=== PATIENT | male | born 1950 | race Caucasian/White ===

== ENCOUNTER 2018-10-06 17:47 | Emergency (ER) | payer MEDICARE, OTHER ==
[2018-10-06] MEDS ORDERED: Vancomycin 1GM/ Ns 250ML*** 1 GM/250 ML IVPB IV ONE (18:05)
[2018-10-06] MEDS ORDERED: DUONEB 0.5-3 MG/3 ml Neb IH ONE ×2 (18:06→18:13)
--- NOTE | 2018-10-06 18:13 | ERPHSYRPT ---
- History of Present Illness Source: patient Exam Limitations: no limitations Patient Subjective Stated Complaint: Pt states "I got this rash." Triage Nursing Assessment: Pt presented alert and oriented X 3, skin pwd. PT ambulates with an upright steady gait, able to speak in clear full sentences PT has red dry patches on left matthews, red spot on left upper back. No apparent respiraotry distress. Timing/Duration: day(s) (2) Quality: burning, itchy Severity: moderate Location: extremities (left lower leg, matthews) Possible Causes: no cause identified Modifying Factors: Improves With: other (denies) Associated Symptoms: rash Hx Tetanus, Diphtheria Vaccination/Date Given: Yes Hx Influenza Vaccination/Date Given: No Hx Pneumococcal Vaccination/Date Given: No Immunizations Up to Date: Yes <MIGUEL MCNAMARA - Last Filed: 10/06/18 19:09> <GEORGINA ALCANTAR - Last Filed: 10/06/18 21:06> - History of Present Illness Time Seen by Provider: 10/06/18 17:58 Physician History: Pt started c/o painful rash, redness on his left lower leg few days ago, denies any injury, no fever, chills, headaches, chest pain, or severe SOB. He has COPD , chronic cough. He denies taking antibiotics recently. (MIGUEL MCNAMARA) Allergies/Adverse Reactions: No Known Drug Allergies Allergy (Verified 10/06/18 18:02) Home Medications: Risedronate Sodium [Atelvia] 35 mg PO WEEKLY 05/03/13 [History] Zolpidem Tartrate [Ambien] 10 mg PO DAILY 05/03/13 [History] Aspirin 162 mg PO DAILY 06/24/14 [History] Codeine Phosphate/APAP #3 [Tylenol #3 Tablet] 1 tab PO Q6H PRN PRN 06/24/14 [History] Ramipril 5 mg [Altace 5 MG] 5 mg PO DAILY 06/24/14 [History] Simvastatin 10 mg PO HS 06/24/14 [History] - Review of Systems Constitutional: No Symptoms Eyes: No Symptoms Ears, Nose, & Throat: No Symptoms Respiratory: Cough (chronic) Cardiac: No Symptoms Abdominal/Gastrointestinal: No Symptoms Genitourinary Symptoms: No Symptoms Musculoskeletal: No Symptoms Skin: Pruritis, Rash Neurological: No Symptoms All Other Systems: Reviewed and Negative <MIGUEL MCNAMARA Filed: 10/06/18 19:09> - Past Medical History Pertinent Past Medical History: Yes Neurological History: No Pertinent History ENT History: No Pertinent History Cardiac History: Hypertension, Myocardial Infarction ([place]) Respiratory History: Asthma, COPD Endocrine Medical History: No Pertinent History Musculoskeletal History: No Pertinent History GI Medical History: No Pertinent History History: No Pertinent History Psycho-Social History: No Pertinent History Male Reproductive Disorders: No Pertinent History - Past Surgical History Past Surgical History: Yes Neuro Surgical History: No Pertinent History Cardiac: Cardiac Stent Respiratory: No Pertinent History Gastrointestinal: Appendectomy Genitourinary: No Pertinent History Musculoskeletal: No Pertinent History Male Surgical History: No Pertinent History Other Surgical History: 4 STENTS PLACED - Social History Smoking Status: Current every day smoker How long have you smoked: years Exposure to second hand smoke: Yes Drug Use: marijuana Patient Lives Alone: No <MIGUEL MCNAMARA Last Filed: 10/06/18 19:09> - Physical Exam General Appearance: no apparent distress Ears, Nose, Throat Exam: normal ENT inspection, moist mucous membranes Neck Exam: normal inspection, non-tender, supple, No JVD Respiratory Exam: airway intact, rhonchi (bilateral, mild), No chest tenderness , No respiratory distress Cardiovascular Exam: regular rate/rhythm, normal heart sounds, normal peripheral pulses, No murmur Gastrointestinal/Abdomen Exam: soft, normal bowel sounds, No tenderness Back Exam: normal inspection, No CVA tenderness Extremity Exam: other (left anterior lower leg: diffuse erythema, fine rash, cellulitis, no abscess, or necrotic area, ulcer, good distal pulses and sensation.), No calf tenderness, No ashvin's sign, No pedal edema Neurologic Exam: alert, oriented x 3, cooperative, normal mood/affect Skin Exam: normal color, warm, dry, rash, No petechiae, No jaundice, No cyanosis , No diaphoresis Lymphatic Exam: No adenopathy SpO2 Interpretation: normal SpO2: 95 O2 Delivery: Room Air <MIGUEL MCNAMARA Filed: 10/06/18 19:09> - Nursing Vital Signs Nursing Vital Signs: Initial Vital Signs Temperature 97.9 F 10/06/18 17:54 Pulse Rate 91 H 10/06/18 17:54 Respiratory Rate 16 10/06/18 17:54 Blood Pressure 180/108 10/06/18 17:54 O2 Sat by Pulse Oximetry 95 10/06/18 17:54 Pain Scale Pain Intensity 4 - Course Nursing assessment & vital signs reviewed: Yes <GEORGINA ALCANTAR - Last Filed: 10/06/18 21:06> Ordered Tests: Active Orders 24 hr Category Date Time Status IV Insertion STAT Care 10/06/18 18:03 Active VENOUS UNILAT/LIMITED EXTREMIT [US] Stat Exams 10/06/18 18:55 Taken BLOOD CULTURE Stat Lab 10/06/18 18:22 Received CBC W DIFF Stat Lab 10/06/18 18:22 Completed CMP Stat Lab 10/06/18 18:22 Completed D-DIMER QUANTITATION Stat Lab 10/06/18 18:22 Completed Lactic Acid Stat Lab 10/06/18 18:19 Completed PROTIME WITH INR Stat Lab 10/06/18 18:22 Completed PTT Stat Lab 10/06/18 18:22 Completed Respiratory Therapy Assessment DAILY RT 10/06/18 18:39 Active Medication Summary Discontinued Medications Generic Name Dose Route Start Last Admin Trade Name Freq PRN Reason Stop Dose Admin Albuterol/Ipratropium 3 ml 10/06/18 18:06 10/06/18 18:16 Duoneb 0.5-3 Mg/3 Ml Neb IH 10/06/18 18:07 3 ml STAT ONE Administration Albuterol/Ipratropium Confirm 10/06/18 18:13 Duoneb 0.5-3 Mg/3 Ml Neb Administered 10/06/18 18:14 Dose 3 ml IH .STK-MED ONE Vancomycin HCl 1 gm in 250 mls @ 167 mls/hr 10/06/18 18:05 10/06/18 18:31 Vancomycin 1gm/ Ns 250ml IV 10/06/18 19:34 167 mls/hr STAT ONE Administration Vancomycin HCl Confirm 10/06/18 18:24 Vancomycin 1gm/ Ns 250ml Administered 10/06/18 18:25 Dose 250 mls @ ud IV .STK-MED ONE Lab/Rad Data: Laboratory Result Diagrams 10/06/18 18:22 10/06/18 18:22 Laboratory Results 10/06/18 10/06/18 10/06/18 Range/Units 18:22 18:22 18:22 WBC 5.6 (4.0-10.5) K/mm3 RBC 4.57 (4.1-5.6) M/mm3 Hgb 15.4 (12.5-18.0) gm/dl Hct 45.7 (42-50) % MCV 100.0 (78-100) fl MCH 33.7 H (26-32) pg MCHC 33.7 (32-36) g/dl RDW 14.5 H (11.5-14.0) % Plt Count 164 (150-450) K/mm3 MPV 10.9 H (6-9.5) fl Gran % 64.9 (36.0-66.0) % Eos # (Auto) 0.08 (0-0.5) Absolute Lymphs (auto) 1.15 (1.0-4.6) Absolute Monos (auto) 0.70 (0.0-1.3) Lymphocytes % 20.7 L (24.0-44.0) % Monocytes % 12.6 H (0.0-12.0) % Eosinophils % 1.4 (0.00-5.0) % Basophils % 0.4 (0.0-0.4) % Absolute Granulocytes 3.60 (1.4-6.9) Basophils # 0.02 (0-0.4) PT 11.0 (8.83-12.87) SECONDS INR 0.97 (0.8-3.0) APTT 30.7 (24.1-36.1) SECONDS D-Dimer 890 H* (215-500) ng/mL Sodium 142 (137-145) mmol/L Potassium 4.1 (3.5-5.1) mmol/L Chloride 109 H (98-107) mmol/L Carbon Dioxide 26 (22-30) mmol/L Anion Gap 10.4 (5-15) MEQ/L BUN 17 (9-20) mg/dL Creatinine 0.84 (0.66-1.25) mg/dL Estimated GFR > 60.0 ML/MIN Glucose 109 H (74-106) mg/dL Lactic Acid (0.4-2.0) Calcium 9.7 (8.4-10.2) mg/dL Total Bilirubin 0.50 (0.2-1.3) mg/dL AST 25 (17-59) U/L ALT 18 (0-50) U/L Alkaline Phosphatase 69 (38-126) U/L Serum Total Protein 7.0 (6.3-8.2) g/dL Albumin 4.1 (3.5-5.0) g/dL 10/06/18 Range/Units 18:19 WBC (4.0-10.5) K/mm3 RBC (4.1-5.6) M/mm3 Hgb (12.5-18.0) gm/dl Hct (42-50) % MCV (78-100) fl MCH (26-32) pg MCHC (32-36) g/dl RDW (11.5-14.0) % Plt Count (150-450) K/mm3 MPV (6-9.5) fl Gran % (36.0-66.0) % Eos # (Auto) (0-0.5) Absolute Lymphs (auto) (1.0-4.6) Absolute Monos (auto) (0.0-1.3) Lymphocytes % (24.0-44.0) % Monocytes % (0.0-12.0) % Eosinophils % (0.00-5.0) % Basophils % (0.0-0.4) % Absolute Granulocytes (1.4-6.9) Basophils # (0-0.4) PT (8.83-12.87) SECONDS INR (0.8-3.0) APTT (24.1-36.1) SECONDS D-Dimer (215-500) ng/mL Sodium (137-145) mmol/L Potassium (3.5-5.1) mmol/L Chloride (98-107) mmol/L Carbon Dioxide (22-30) mmol/L Anion Gap (5-15) MEQ/L BUN (9-20) mg/dL Creatinine (0.66-1.25) mg/dL Estimated GFR ML/MIN Glucose (74-106) mg/dL Lactic Acid 0.9 (0.4-2.0) Calcium (8.4-10.2) mg/dL Total Bilirubin (0.2-1.3) mg/dL AST (17-59) U/L ALT (0-50) U/L Alkaline Phosphatase (38-126) U/L Serum Total Protein (6.3-8.2) g/dL Albumin (3.5-5.0) g/dL <MIGUEL MNCAMARA - Last Filed: 10/06/18 19:09> - Progress Progress: improved <GEORGINA ALCANTAR - Last Filed: 10/06/18 21:06> - Progress Progress Note: 10/06/18 21:00 68-year-old white male arrives with complaint of painful rash on his left lower extremity symptoms for 3-4 days he denies nausea vomiting fevers Past medical history includes COPD, chronic cough, high blood pressure, myocardial infarction, asthma past surgical history includes for stents and an appendectomy Patient initially seen by Dr. Mcnamara Patient has been given vancomycin 1 g IV Patient does not appear to be in acute distress Patient's vitals initially blood pressure 180/108 now 145/89 patient is afebrile Physical examination well-developed large white male he is alert oriented x3. Head is atraumatic normocephalic Eyes PERRLA EOMI fundi unremarkable. Ears TMs are intact bilaterally. Nose is clear. Throat is clear. Neck is supple. Lungs are clear. Heart regular rate and rhythm without murmur. Abdomen soft nontender nondistended positive bowel sounds. Extremities erythema to the right lower leg I do not see any weeping. Pulses equal and symmetrical two over four upper and lower. Neuro patient alert oriented x3 cranial nerves II through XII are intact DTRs symmetrical two over four [place] Coma Scale is 15. Patient's labs white blood cell 5.6 hemoglobin 15.4 hematocrit 45.7 platelets 164 patient's chemistry sodium 142 potassium 4.1 chloride 109 bicarbonate 26 BUN 17 creatinine 0.89 glucose 109 patient's lactate is 0.9 d-dimer 890 Venous Doppler of left lower leg no DVT Impression cellulitis right lower leg. Plan patient appears to be quite stable he is not in any distress he is afebrile he has received 1 g of vancomycin. Will plan to discharge patient he will need to followup with his doctor, Zahra Montana is to call tomorrow and arrange followup appointment. He can return at any time for any problems . (GEORGINA ALCANTAR) <MIGUEL MCNAMARA - Last Filed: 10/06/18 19:09> - Departure Departure Disposition: Home Critical Care Time: No <GEORGINA ALCANTAR - Last Filed: 10/06/18 21:06> - Departure Clinical Impression: Cellulitis of left leg Condition: Fair Referrals: ROSA MONTANA [Primary Care Provider] - Additional Instructions: Return home. Bactrim DS one orally twice a day for 10 days. Followup with your family doctor call tomorrow to arrange followup appointment. Return for acute distress severe symptoms or for any problems. Prescriptions: Smz/Tmp Ds Tablet [Bactrim Ds Tablet] 1 tab PO BID #20 tablet
[2018-10-06] MEDS ORDERED: Vancomycin 1GM/ Ns 250ML*** 250 ML IV ONE (18:24)
[2018-10-06 18:29] LABS: BASOPHIL % 0.4 % (0.0-0.4); Basophil (Absolute #) 0.02 (0-0.4); Eosinophil % 1.4 % (0.00-5.0); Eosinophil (Absolute #) 0.08 (0-0.5); Granulocytes % 64.9 % (36.0-66.0); Hematocrit 45.7 % (42-50); Hemoglobin 15.4 gm/dl (12.5-18.0); Lymphocyte (Absolute #) 1.15 (1.0-4.6); Lymphocytes % 20.7 % (24.0-44.0); Mean Corpuscular Hemoglobin 33.7 pg (26-32); Mean Corpuscular Hgb Concent. 33.7 g/dl (32-36); Mean Platelet Volume 10.9 fl (6-9.5); Monocytes % 12.6 % (0.0-12.0); Platelet Count 164 K/mm3 (150-450); Red Blood Count 4.57 M/mm3 (4.1-5.6); Red Cell Distribution Width 14.5 % (11.5-14.0); White Blood Count 5.6 K/mm3 (4.0-10.5)
[2018-10-06 18:38] LABS: INR 0.97 (0.8-3.0)
[2018-10-06 18:40] LABS: PTT 30.7 SECONDS (24.1-36.1)
[2018-10-06 18:41] LABS: ALBUMIN 4.1 g/dL (3.5-5.0); ALKALINE PHOSPHATASE 69 U/L (38-126); ANION GAP 10.4 MEQ/L (5-15); BLOOD UREA NITROGEN 17 mg/dL (9-20); CHLORIDE 109 mmol/L (98-107); Calcium 9.7 mg/dL (8.4-10.2); Carbon Dioxide 26 mmol/L (22-30); Creatinine 1 0.84 mg/dL (0.66-1.25); Glucose 109 mg/dL (74-106); Potassium 4.1 mmol/L (3.5-5.1); SGOT/AST 25 U/L (17-59); SGPT/ALT 18 U/L (0-50); SODIUM 142 mmol/L (137-145)
[2018-10-06 21:27] VITALS: BP 148/86; PULSE 90; O2SAT 97
--- NOTE | 2018-10-07 08:33 | XRAY ---
Indication: Pain, swelling, and rash. Two-dimensional sonogram and color Doppler imaging of the major venous vessels of the left leg was performed. Comparison: None No thrombus seen in the examined deep venous vessels of the left leg including greater saphenous vein. Veins demonstrate normal compressibility. Venous waveforms are normal with and without augmentation. Impression: Left leg negative for DVT. Comment: Preliminary report was given.
== END 2018-10-06 21:28 | disposition home or self-care (01) ==
LOC: ED 17:47
DX: L03.116 Cellulitis of left lower limb (principal); M79.662 Pain in left lower leg; I10 Essential (primary) hypertension; J44.9 Chronic obstructive pulmonary disease, unspecified; J45.909 Unspecified asthma, uncomplicated; Z79.899 Other long term (current) drug therapy; I25.2 Old myocardial infarction
CPT/HCPCS: 36000; 36415; 80053; 83605; 85025; 85379; 85610; 85730; 87040; 93971; 94640; 96365; 99284; J3370; A9270-GY

== ENCOUNTER 2019-08-14 19:19 | Emergency (ER) | payer MEDICARE, OTHER ==
[2019-08-14] MEDS ORDERED: Sodium Chloride 0.9% 1000 ML 1,000 ML IV STA (19:35)
[2019-08-14] MEDS ORDERED: Zofran 4 MG/2 ML VIAL IV ONE (19:35)
[2019-08-14] MEDS ORDERED: TYLENOL 325 MG PO ONE (19:35)
[2019-08-14] MEDS ORDERED: Sodium Chloride 0.9% 1000 ML 1,000 ML ONE (19:46)
[2019-08-14] MEDS ORDERED: TYLENOL 325 MG ONE (19:46)
[2019-08-14] MEDS ORDERED: Zofran 4 MG/2 ML VIAL ONE (19:46)
--- NOTE | 2019-08-14 20:07 | ERPHSYRPT ---
- History of Present Illness Time Seen by Provider: 08/14/19 19:23 Source: patient Exam Limitations: no limitations Patient Subjective Stated Complaint: "My back started hurting last night while i was sitting in my chair." Triage Nursing Assessment: pt presented alert et oriented x3 answering questions appropriately. Pt reported acute onset left flank pain that started the night before. Pt described the pain as sharp/stabbing. Pt denied vomiting/diarrhea. Pt denied dysuria. Pupils 3mm reactive. oral mucosa pink/moist. neck supple non-tender. Symmetrical chest expansion. Lungs clear with adequate airflow. Radial pulses equal/bilateral. Abdomen soft non-tender without palpable organomegaly. Bowel sounds present in all quadrants. Pain reproducable with palpation. No noted dependent edema. Physician History: Patient is here with left flank pain. No falls or trauma. No fever, chills, nausea, vomiting. Patient states the pain started last night when he was in his chair. He has no palpable abdominal mass, history of aortic aneurysm, aortic abdominal dissection. He has tried some pain medication at home without relief. No falls or other trauma. Location: left flank Quality: sharp Radiation: none Severity: moderate Duration: last night Timing: gradual Modifying factors/associated signs and symptoms: home OTC medication Timing/Duration: day(s) (yesterday) Severity: moderate Modifying Factors: Improves With: medication, movement, rest Associated Symptoms: nausea, No chest pain, No loss of appetite Allergies/Adverse Reactions: No Known Drug Allergies Allergy (Verified 08/14/19 19:28) Home Medications: Zolpidem Tartrate [Ambien] 10 mg PO DAILY 05/03/13 [History] Aspirin 162 mg PO DAILY 06/24/14 [History] Ramipril 5 mg [Altace 5 MG] 5 mg PO DAILY 06/24/14 [History] Simvastatin 10 mg PO HS 06/24/14 [History] Metformin HCl 500 mg [Glucophage 500 MG] 1 tab PO BID 08/14/19 [History] Nebivolol HCl 5 MG [Bystolic 5 MG] 1 tab PO DAILY 08/14/19 [History] Hx Tetanus, Diphtheria Vaccination/Date Given: No Hx Influenza Vaccination/Date Given: Yes Hx Pneumococcal Vaccination/Date Given: No Travel Risk - International Travel Have you traveled outside of the country in past 3 weeks: No - Coronavirus Screening Are you exhibiting any of the following symptoms?: No Close contact with a COVID-19 positive Pt in past 14-21 Days: No - Review of Systems Constitutional: No Fever, No Chills Eyes: No Symptoms Ears, Nose, & Throat: No Symptoms Respiratory: No Cough, No Dyspnea Cardiac: No Chest Pain, No Edema, No Syncope Abdominal/Gastrointestinal: Other (left flank pain), No Abdominal Pain, No Nausea, No Vomiting, No Diarrhea Genitourinary Symptoms: No Dysuria Musculoskeletal: No Back Pain, No Neck Pain Skin: No Rash Neurological: No Dizziness, No Focal Weakness, No Sensory Changes Psychological: No Symptoms Endocrine: No Symptoms All Other Systems: Reviewed and Negative - Past Medical History Pertinent Past Medical History: Yes Neurological History: No Pertinent History ENT History: No Pertinent History Cardiac History: Hypertension, Myocardial Infarction ([place]) Respiratory History: Asthma, COPD Endocrine Medical History: No Pertinent History Musculoskeletal History: No Pertinent History GI Medical History: No Pertinent History History: No Pertinent History Psycho-Social History: No Pertinent History Male Reproductive Disorders: No Pertinent History - Past Surgical History Past Surgical History: Yes Neuro Surgical History: No Pertinent History Cardiac: Cardiac Stent Respiratory: No Pertinent History Gastrointestinal: Appendectomy Genitourinary: No Pertinent History Musculoskeletal: No Pertinent History Male Surgical History: No Pertinent History Other Surgical History: 4 STENTS PLACED - Social History Smoking Status: Current every day smoker How long have you smoked: years Exposure to second hand smoke: Yes Drug Use: marijuana Patient Lives Alone: No - Nursing Vital Signs Nursing Vital Signs: Initial Vital Signs Temperature 97.9 F 08/14/19 19:19 Pulse Rate 89 08/14/19 19:19 Respiratory Rate 20 08/14/19 19:19 Blood Pressure 127/93 08/14/19 19:19 O2 Sat by Pulse Oximetry 97 08/14/19 19:19 Pain Scale Pain Intensity 4 - Physical Exam General Appearance: no apparent distress, alert Eye Exam: PERRL/EOMI, eyes nml inspection Ears, Nose, Throat Exam: normal ENT inspection, TMs normal, pharynx normal, moist mucous membranes Neck Exam: normal inspection, non-tender, supple, full range of motion Respiratory Exam: normal breath sounds, lungs clear, No respiratory distress Cardiovascular Exam: regular rate/rhythm, normal heart sounds, normal peripheral pulses Gastrointestinal/Abdomen Exam: soft, normal bowel sounds, No tenderness, No mass Back Exam: normal inspection, normal range of motion, No CVA tenderness, No vertebral tenderness Extremity Exam: normal inspection, normal range of motion, pelvis stable Neurologic Exam: alert, oriented x 3, cooperative, normal mood/affect, nml cerebellar function, nml station & gait, sensation nml, No motor deficits Skin Exam: normal color, warm, dry, No rash Lymphatic Exam: No adenopathy SpO2 Interpretation: normal SpO2: 97 Comments: 08/14/19 20:06 left flank tenderness palpation. No obvious deformity, sensation intact, 2+ capillary refill, 2 point tactile discrimination intact. 5 out of 5 strength. Full range of motion without pain. Compartments are soft, nontender. Overlying skin shows no tenting, bruising, ecchymosis. Ordered Tests: Active Orders 24 hr Category Date Time Status EKG-ER Only STAT Care 08/14/19 19:35 Active IV Insertion STAT Care 08/14/19 19:35 Active ABDOMEN AND PELVIS W/0 CONTRAS [CT] Stat Exams 08/14/19 19:46 Taken CBC W DIFF Stat Lab 08/14/19 20:05 Completed CMP Stat Lab 08/14/19 20:05 Completed LIPASE Stat Lab 08/14/19 20:05 Completed TROPONIN Q3H Lab 08/14/19 20:05 Completed TROPONIN Q3H Lab 08/14/19 22:45 Ordered TROPONIN Q3H Lab 08/15/19 01:45 Ordered TROPONIN Q3H Lab 08/15/19 04:45 Ordered TROPONIN Q3H Lab 08/15/19 07:45 Ordered UA W/RFX UR CULTURE Stat Lab 08/14/19 21:15 Completed Medication Summary Discontinued Medications Generic Name Dose Route Start Last Admin Trade Name Freq PRN Reason Stop Dose Admin Acetaminophen 975 mg 08/14/19 19:35 08/14/19 20:09 Tylenol 325 Mg PO 08/14/19 19:36 975 mg STAT ONE Administration Acetaminophen Confirm 08/14/19 19:46 Tylenol 325 Mg Administered 08/14/19 19:47 Dose 975 mg .ROUTE .STK-MED ONE Sodium Chloride 1,000 mls @ 999 mls/hr 08/14/19 19:35 08/14/19 20:10 Sodium Chloride 0.9% 1000 Ml IV 08/14/19 20:35 999 mls/hr .Q1H1M STA Administration Sodium Chloride Confirm 08/14/19 19:46 Sodium Chloride 0.9% 1000 Ml Administered 08/14/19 19:47 Dose 1,000 mls @ ud .ROUTE .STK-MED ONE Ondansetron HCl 4 mg 08/14/19 19:35 08/14/19 20:09 Zofran 4 Mg/2 Ml Vial IV 08/14/19 19:36 4 mg STAT ONE Administration Ondansetron HCl Confirm 08/14/19 19:46 Zofran 4 Mg/2 Ml Vial Administered 08/14/19 19:47 Dose 4 mg .ROUTE .STK-MED ONE Lab/Rad Data: Laboratory Result Diagrams 08/14/19 20:05 08/14/19 20:05 Laboratory Results 08/14/19 08/14/19 08/14/19 Range/Units 21:15 20:05 20:05 WBC (4.0-10.5) K/mm3 RBC (4.1-5.6) M/mm3 Hgb (12.5-18.0) gm/dl Hct (42-50) % MCV (78-100) fl MCH (26-32) pg MCHC (32-36) g/dl RDW (11.5-14.0) % Plt Count (150-450) K/mm3 MPV (7.5-11.0) fl Gran % (36.0-66.0) % Eos # (Auto) (0-0.5) Absolute Lymphs (auto) (1.0-4.6) Absolute Monos (auto) (0.0-1.3) Lymphocytes % (24.0-44.0) % Monocytes % (0.0-12.0) % Eosinophils % (0.00-5.0) % Basophils % (0.0-0.4) % Absolute Granulocytes (1.4-6.9) Basophils # (0-0.4) Sodium 137 (137-145) mmol/L Potassium 4.1 (3.5-5.1) mmol/L Chloride 104 (98-107) mmol/L Carbon Dioxide 27 (22-30) mmol/L Anion Gap 10.4 (5-15) MEQ/L BUN 14 (9-20) mg/dL Creatinine 0.85 (0.66-1.25) mg/dL Estimated GFR > 60.0 ML/MIN Glucose 121 H (74-106) mg/dL Calcium 9.3 (8.4-10.2) mg/dL Total Bilirubin 0.40 (0.2-1.3) mg/dL AST 24 (17-59) U/L ALT 16 (0-50) U/L Alkaline Phosphatase 71 (38-126) U/L Troponin I < 0.012 (0.000-0.034) ng/mL Serum Total Protein 6.6 (6.3-8.2) g/dL Albumin 3.7 (3.5-5.0) g/dL Lipase 157 (23-300) U/L Urine Color YELLOW (YELLOW) Urine Appearance CLEAR (CLEAR) Urine pH 6.0 (5-6) Ur Specific [place] 1.005 (1.005-1.025) Urine Protein NEGATIVE (Negative) Urine Ketones NEGATIVE (NEGATIVE) Urine Blood NEGATIVE (0-5) [place] Urine Nitrite NEGATIVE (NEGATIVE) Urine Bilirubin NEGATIVE (NEGATIVE) Urine Urobilinogen NEGATIVE (0-1) mg/dL Ur Leukocyte Esterase NEGATIVE (NEGATIVE) Urine WBC (Auto) 0-2 (0-5) /HPF Urine RBC (Auto) NONE (0-2) /HPF U Epithel Cells (Auto) NONE (FEW) /HPF Urine Bacteria (Auto) NONE (NEGATIVE) /HPF Urine Culture Reflexed NO (NO) Urine Glucose NEGATIVE (NEGATIVE) mg/dL 08/14/19 Range/Units 20:05 WBC 4.7 (4.0-10.5) K/mm3 RBC 4.47 (4.1-5.6) M/mm3 Hgb 14.8 (12.5-18.0) gm/dl Hct 44.7 (42-50) % MCV 100.0 (78-100) fl MCH 33.1 H (26-32) pg MCHC 33.1 (32-36) g/dl RDW 14.6 H (11.5-14.0) % Plt Count 167 (150-450) K/mm3 MPV 10.7 (7.5-11.0) fl Gran % 60.6 (36.0-66.0) % Eos # (Auto) 0.09 (0-0.5) Absolute Lymphs (auto) 1.18 (1.0-4.6) Absolute Monos (auto) 0.56 (0.0-1.3) Lymphocytes % 25.2 (24.0-44.0) % Monocytes % 11.9 (0.0-12.0) % Eosinophils % 1.9 (0.00-5.0) % Basophils % 0.4 (0.0-0.4) % Absolute Granulocytes 2.84 (1.4-6.9) Basophils # 0.02 (0-0.4) Sodium (137-145) mmol/L Potassium (3.5-5.1) mmol/L Chloride (98-107) mmol/L Carbon Dioxide (22-30) mmol/L Anion Gap (5-15) MEQ/L BUN (9-20) mg/dL Creatinine (0.66-1.25) mg/dL Estimated GFR ML/MIN Glucose (74-106) mg/dL Calcium (8.4-10.2) mg/dL Total Bilirubin (0.2-1.3) mg/dL AST (17-59) U/L ALT (0-50) U/L Alkaline Phosphatase (38-126) U/L Troponin I (0.000-0.034) ng/mL Serum Total Protein (6.3-8.2) g/dL Albumin (3.5-5.0) g/dL Lipase (23-300) U/L Urine Color (YELLOW) Urine Appearance (CLEAR) Urine pH (5-6) Ur Specific [place] (1.005-1.025) Urine Protein (Negative) Urine Ketones (NEGATIVE) Urine Blood (0-5) Paco/ul Urine Nitrite (NEGATIVE) Urine Bilirubin (NEGATIVE) Urine Urobilinogen (0-1) mg/dL Ur Leukocyte Esterase (NEGATIVE) Urine WBC (Auto) (0-5) /HPF Urine RBC (Auto) (0-2) /HPF U Epithel Cells (Auto) (FEW) /HPF Urine Bacteria (Auto) (NEGATIVE) /HPF Urine Culture Reflexed (NO) Urine Glucose (NEGATIVE) mg/dL - Progress Progress: improved Progress Note: 08/14/19 20:07 differential diagnosis includes kidney stone, compression fracture, infection, UTI, triple AAA - basic labs including: CBC, lipase, CMP, UA - insert IV for fluids, pain meds, nausea control - consider imaging: CT ab/pelvis 08/14/19 21:35 CT scan shows no obvious cause for patient's pain. No kidney stone, no obvious dissection, no obvious pancreatitis. Patient feels improved with medication here. No UTI on UA. Patient will close follow-up with PCP. Return here for any new or changing symptoms. Will discharge patient home. States he understands his reasons to follow-up and follow-up instructions with PCP. Counseled pt/family regarding: drug and/or alcohol abuse, lab results, diagnosis, need for follow-up, rad results, smoking cessation - Departure Departure Disposition: Home Clinical Impression: Left flank pain Condition: Stable Critical Care Time: No Referrals: ROSA GE [Primary Care Provider] - Instructions: Flank Pain
[2019-08-14 20:13] LABS: Absolute Neutrophil Ct (ANC) 2.84 (1.4-6.9); BASOPHIL % 0.4 % (0.0-0.4); Basophil (Absolute #) 0.02 (0-0.4); Eosinophil % 1.9 % (0.00-5.0); Eosinophil (Absolute #) 0.09 (0-0.5); Hematocrit 44.7 % (42-50); Hemoglobin 14.8 gm/dl (12.5-18.0); Lymphocyte (Absolute #) 1.18 (1.0-4.6); Lymphocytes % 25.2 % (24.0-44.0); Mean Corpuscular Hemoglobin 33.1 pg (26-32); Mean Corpuscular Hgb Concent. 33.1 g/dl (32-36); Mean Platelet Volume 10.7 fl (7.5-11.0); Monocyte (Absolute #) 0.56 (0.0-1.3); Monocytes % 11.9 % (0.0-12.0); Neutrophil % 60.6 % (36.0-66.0); Platelet Count 167 K/mm3 (150-450); Red Blood Count 4.47 M/mm3 (4.1-5.6); Red Cell Distribution Width 14.6 % (11.5-14.0); White Blood Count 4.7 K/mm3 (4.0-10.5)
[2019-08-14 20:27] LABS: ALBUMIN 3.7 g/dL (3.5-5.0); ALKALINE PHOSPHATASE 71 U/L (38-126); ANION GAP 10.4 MEQ/L (5-15); BLOOD UREA NITROGEN 14 mg/dL (9-20); CHLORIDE 104 mmol/L (98-107); Calcium 9.3 mg/dL (8.4-10.2); Carbon Dioxide 27 mmol/L (22-30); Creatinine 1 0.85 mg/dL (0.66-1.25); Glucose 121 mg/dL (74-106); LIPASE 157 U/L (23-300); Potassium 4.1 mmol/L (3.5-5.1); SGOT/AST 24 U/L (17-59); SGPT/ALT 16 U/L (0-50); SODIUM 137 mmol/L (137-145); Total Protein 6.6 g/dL (6.3-8.2)
[2019-08-14 21:29] LABS: Appearance CLEAR (CLEAR); Bilirubin NEGATIVE (NEGATIVE); Blood NEGATIVE Ery/ul (0-5); Glucose NEGATIVE (NEGATIVE); Ketones NEGATIVE (NEGATIVE); Leukocyte Esterase NEGATIVE (NEGATIVE); Nitrite NEGATIVE (NEGATIVE); Protein,Urine Dip NEGATIVE (Negative); Specific Gravity 1.005 (1.005-1.025); Urobilinogen NEGATIVE mg/dL (0-1); WBC 0-2 /HPF (0-5)
[2019-08-14 21:51] VITALS: BP 149/84; PULSE 82; O2SAT 98
--- NOTE | 2019-08-15 07:45 | XRAY ---
Indication: Left flank pain. Multiple contiguous axial images obtained through the abdomen and pelvis without contrast using renal stone protocol. Comparison: January 27, 2006. Lung bases and upper abdomen degraded by respiration artifact Lung bases again hyperinflated with bibasilar subsegmental atelectasis/scarring. No infiltrate or effusion. Heart is not enlarged. No renal calculus or evidence for obstructive uropathy in either system. A few new bilateral renal cysts, largest right mid kidney measuring 2.2 cm. Left upper kidney demonstrates new 7 mm round density, not simple cyst. No hydronephrosis or hydroureter. Stomach is distended with food/fluid. Noncontrasted stomach and bowel loops appear nonobstructed. Appendectomy reported. New sigmoid diverticulosis without diverticulitis. No free fluid/air. Left lobe of the liver demonstrates new 2.4 cm cyst. Stable subcentimeter inferior right hepatic cyst and small right adrenal adenoma. Remaining liver, gallbladder, pancreas, spleen, adrenal glands, kidneys, ureters, and bladder appear unremarkable for noncontrast exam. Progressive worsening heavy scattered vascular calcifications. No AAA. Osseous structures intact again with mild degenerative changes throughout the spine and bilateral L5 spondylolysis with minimal spondylolisthesis. No ventral or inguinal hernias. Impression: 1. Negative renal calculus or evidence for obstructive uropathy. 2. New bilateral renal cysts. Left upper pole cyst appears dense/complex. CT or MRI with contrast exam may yield further information. 3. New left lobe hepatic cysts with stable tiny right lobe cyst. 4. New sigmoid diverticulosis without diverticulitis. 5. Stable right adrenal adenoma and chronic bony findings. Comment: Preliminary interpretation was made by [facility]. No critical discrepancy.
== END 2019-08-14 21:53 | disposition home or self-care (01) ==
LOC: ED 19:19
DX: R10.9 Unspecified abdominal pain (principal); Z79.899 Other long term (current) drug therapy; J44.9 Chronic obstructive pulmonary disease, unspecified; J45.909 Unspecified asthma, uncomplicated; I25.2 Old myocardial infarction; Z72.0 Tobacco use
CPT/HCPCS: 36000; 36415; 74176; 80053; 81001; 83690; 84484; 85025; 93005; 96360; 96374; 99284; J2405; A9270-GY

== ENCOUNTER 2021-03-27 18:22 | Observation (INO) | payer MEDICARE, OTHER ==
[2021-03-27 19:18] LABS: Hematocrit 44.6 % (42-50); Hemoglobin 14.8 gm/dl (12.5-18.0); Mean Cell Volume 100.9 fl (78-100); Mean Corpuscular Hemoglobin 33.5 pg (26-32); Mean Corpuscular Hgb Concent. 33.2 g/dl (32-36); Mean Platelet Volume 11.6 fl (7.5-11.0); Platelet Count 117 K/mm3 (150-450); Red Blood Count 4.42 M/mm3 (4.1-5.6); Red Cell Distribution Width 13.2 % (11.5-14.0); White Blood Count 4.2 K/mm3 (4.0-10.5)
[2021-03-27 19:23] LABS: INR 0.99 (0.8-3.0); PROTIME 11.7 SECONDS (9.4-12.5)
[2021-03-27 19:25] LABS: PTT 32.1 SECONDS (25.1-36.5)
--- NOTE | 2021-03-27 19:26 | ERPHSYRPT ---
- History of Present Illness Source: patient, EMS Exam Limitations: no limitations Patient Subjective Stated Complaint: Syncope Triage Nursing Assessment: Patient brought into ED via EMS and transferred to bed with assist of 3. Patient A+O x3. Patient's skin pink, warm and dry. Patient complains of a near sycopal episode while eating dinner. Patient states he started sweating and was nauseated and began to feel dizzy. Patient states he has been coughing, SOB, headache, bodyaches and fatigue for the past couple of days. Lungs clear a/p pedro. Physician History: 70 yo wm brought into ER by EMS for near syncopal episode before sitting down to eat. Pt stated that he had some nausea/vomiting/diaphoresis before the near syncopal episode. He denies chest pain/dyspnea. Pt is vaccinated w Moderna x2 but has had a cough/coryza for the last couple of weeks. Pt smokes 1.5 ppd and has a h/o "black lung". Fever/DELVALLE/myalgias/diarrhea are denied. Witnessed: by family Prior Episodes: single episode today Timing/Duration: today Precipitating Factors: diaphoresis, nausea Context: sitting (Getting ready to eat) Charcter of event(s): felt faint Allergies/Adverse Reactions: No Known Drug Allergies Allergy (Verified 03/27/21 18:30) Home Medications: Zolpidem Tartrate [Ambien] 10 mg PO DAILY 05/03/13 [History] Aspirin 162 mg PO DAILY 06/24/14 [History] Ramipril 5 mg [Altace 5 MG] 5 mg PO DAILY 06/24/14 [History] Simvastatin 10 mg PO HS 06/24/14 [History] Metformin HCl 500 mg [Glucophage 500 MG] 1 tab PO BID 08/14/19 [History] Nebivolol HCl 5 MG [Bystolic 5 MG] 1 tab PO DAILY 08/14/19 [History] Hx Tetanus, Diphtheria Vaccination/Date Given: No Hx Influenza Vaccination/Date Given: No Hx Pneumococcal Vaccination/Date Given: No Immunizations Up to Date: Yes Travel Risk - International Travel Have you traveled outside of the country in past 3 weeks: No - Coronavirus Screening Are you exhibiting any of the following symptoms?: No Symptoms: Cough: New Onset, Shortness of Breath, Vomiting/Diarrhea, Headaches/Body Aches/Fatigue Close contact with a COVID-19 positive Pt in past 14-21 Days: No - Vaccine Status Have you recieved a Covid-19 vaccination: Yes [employer]: Moderna - Vaccination Dates Date of 2cond Vaccination (if applicable): na - Past Medical History Pertinent Past Medical History: Yes Neurological History: No Pertinent History ENT History: No Pertinent History Cardiac History: Hypertension, Myocardial Infarction ([place]) Respiratory History: Asthma, COPD Endocrine Medical History: No Pertinent History Musculoskeletal History: No Pertinent History GI Medical History: No Pertinent History History: No Pertinent History Psycho-Social History: No Pertinent History Male Reproductive Disorders: No Pertinent History - Past Surgical History Past Surgical History: Yes Neuro Surgical History: No Pertinent History Cardiac: Cardiac Stent Respiratory: No Pertinent History Gastrointestinal: Appendectomy Genitourinary: No Pertinent History Musculoskeletal: No Pertinent History Male Surgical History: No Pertinent History Other Surgical History: 4 STENTS PLACED - Social History Smoking Status: Current every day smoker How long have you smoked: years Exposure to second hand smoke: Yes Drug Use: none Patient Lives Alone: No Significant Family History: no pertinent family hx - Review of Systems Constitutional: No Symptoms, Fatigue, Lethargy, Weakness Eyes: No Symptoms Ears, Nose, & Throat: No Symptoms, Nose Congestion, Nose Discharge Respiratory: No Symptoms, Cough Cardiac: No Symptoms Abdominal/Gastrointestinal: No Symptoms, Nausea, Vomiting, Diarrhea Genitourinary Symptoms: No Symptoms Musculoskeletal: No Symptoms Skin: No Symptoms Neurological: No Symptoms Psychological: No Symptoms Endocrine: No Symptoms Hematologic/Lymphatic: No Symptoms Immunological/Allergic: No Symptoms Physical Exam - Nursing Vital Signs Nursing Vital Signs: Initial Vital Signs Pulse Rate 62 03/27/21 18:30 Respiratory Rate 18 03/27/21 18:30 Blood Pressure 101/76 03/27/21 18:30 O2 Sat by Pulse Oximetry 100 03/27/21 18:30 Pain Scale Pain Intensity 0 WNL - Bentley Coma Scale Best Eye Response (Jeannette): (4) open spontaneously Best Verbal Response (Bentley): (5) oriented Best Motor Response (Jeannette): (6) obeys commands Bentley Total: 15 - Physical Exam General Appearance: no apparent distress Eye Exam: bilateral eye: normal inspection, PERRL, EOMI Ears, Nose, Throat Exam: normal ENT inspection, TMs normal, pharynx normal, moist mucous membranes Neck Exam: normal inspection, non-tender, supple, full range of motion, No meningismus, No mass, No Brudzinski, No Kernig's, No carotid bruit Respiratory: normal breath sounds, lungs clear, airway intact, No respiratory distress Cardiovascular: regular rate/rhythm, normal heart sounds, normal peripheral pulses Gastrointestinal: soft, normal bowel sounds, No tenderness Back Exam: normal inspection, normal range of motion, No CVA tenderness, No vertebral tenderness Extremity Exam: normal inspection, normal range of motion Peripheral Pulses: carotid (R): 2+, carotid (L): 2+ Mental Status: alert, oriented x 3, 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 Exam: normal hearing, normal speech, PERRL Coordination/Gait: normal gait, normal cerebellar function, negative Romberg's sign Motor/Sensory: no motor deficit, no sensory deficit, no pronator drift DTR: bicep (R): 2+, bicep (L): 2+ Skin Exam: normal color, warm, dry, No rash SpO2 Interpretation: normal SpO2: 100 O2 Delivery: Room Air - Course Nursing assessment & vital signs reviewed: Yes EKG Interpreted by Me: RATE (NSR/Rate63/IVCD/Poor R wave progression V2-V3/No acute ST-Twave changes) - CT Exams Chest CT Interpretation: Discussed w/radiologist (No PE/COPD) Ordered Tests: Active Orders 24 hr Category Date Time Status EKG-ER Only STAT Care 03/27/21 18:51 Active CHEST 1 VIEW (PORTABLE) Stat Exams 03/27/21 18:51 Taken CHEST WITH CONTRAST [CT] Stat Exams 03/27/21 20:06 Taken CBC W DIFF Stat Lab 03/27/21 19:05 Completed CMP Stat Lab 03/27/21 19:05 Completed COVID AG-BINAX NOW RAPID TEST Stat Lab 03/27/21 19:15 Completed D-DIMER QUANTITATIVE Stat Lab 03/27/21 19:05 Completed ETHYL ALCOHOL Stat Lab 03/27/21 19:05 Completed Manual Differential NC Stat Lab 03/27/21 19:05 Completed NT PRO BNP Stat Lab 03/27/21 19:05 Completed PROTIME WITH INR Stat Lab 03/27/21 19:05 Completed PTT Stat Lab 03/27/21 19:05 Completed TROPONIN Q3H Lab 03/27/21 19:05 Completed TROPONIN Q3H Lab 03/27/21 22:00 Ordered TROPONIN Q3H Lab 03/28/21 01:00 Ordered TROPONIN Q3H Lab 03/28/21 04:00 Ordered TROPONIN Q3H Lab 03/28/21 07:00 Ordered Medication Summary Discontinued Medications Generic Name Dose Route Start Last Admin Trade Name Jigna PRN Reason Stop Dose Admin Dexamethasone Sodium Phosphate 10 mg 03/27/21 19:53 03/27/21 20:13 Dexamethasone Sod Phosphate 10 Mg/Ml IV 03/27/21 19:54 10 mg STAT ONE Administration Dexamethasone Sodium Phosphate Confirm 03/27/21 20:12 Dexamethasone Sod Phosphate 10 Mg/Ml Administered 03/27/21 20:13 Dose 10 mg .ROUTE .STK-MED ONE Lab/Rad Data: Laboratory Result Diagrams 03/27/21 19:05 03/27/21 19:05 Laboratory Results 03/27/21 03/27/21 03/27/21 Range/Units 19:15 19:05 19:05 WBC 4.2 (4.0-10.5) K/mm3 RBC 4.42 (4.1-5.6) M/mm3 Hgb 14.8 (12.5-18.0) gm/dl Hct 44.6 (42-50) % MCV 100.9 H (78-100) fl MCH 33.5 H (26-32) pg MCHC 33.2 (32-36) g/dl RDW 13.2 (11.5-14.0) % Plt Count 117 L (150-450) K/mm3 MPV 11.6 H (7.5-11.0) fl PT (9.4-12.5) SECONDS INR (0.8-3.0) APTT (25.1-36.5) SECONDS D-Dimer 869 H* (215-500) ng/mL Sodium (137-145) mmol/L Potassium (3.5-5.1) mmol/L Chloride (98-107) mmol/L Carbon Dioxide (22-30) mmol/L Anion Gap (5-15) MEQ/L BUN (9-20) mg/dL Creatinine (0.66-1.25) mg/dL Estimated GFR ML/MIN Glucose (74-106) mg/dL Calcium (8.4-10.2) mg/dL Total Bilirubin (0.2-1.3) mg/dL AST (17-59) U/L ALT (0-50) U/L Alkaline Phosphatase (38-126) U/L Troponin I (0.000-0.034) ng/mL NT-Pro-B Natriuret Pep (0-900) pg/mL Serum Total Protein (6.3-8.2) g/dL Albumin (3.5-5.0) g/dL Ethyl Alcohol (0-10) mg/dL SARS-CoV-2 Ag (Rapid) POSITIVE A* (NEGATIVE) 03/27/21 03/27/21 03/27/21 Range/Units 19:05 19:05 19:05 WBC (4.0-10.5) K/mm3 RBC (4.1-5.6) M/mm3 Hgb (12.5-18.0) gm/dl Hct (42-50) % MCV (78-100) fl MCH (26-32) pg MCHC (32-36) g/dl RDW (11.5-14.0) % Plt Count (150-450) K/mm3 MPV (7.5-11.0) fl PT 11.7 (9.4-12.5) SECONDS INR 0.99 (0.8-3.0) APTT 32.1 (25.1-36.5) SECONDS D-Dimer (215-500) ng/mL Sodium 132 L (137-145) mmol/L Potassium 3.7 (3.5-5.1) mmol/L Chloride 94 L (98-107) mmol/L Carbon Dioxide 28 (22-30) mmol/L Anion Gap 14.3 (5-15) MEQ/L BUN 17 (9-20) mg/dL Creatinine 0.99 (0.66-1.25) mg/dL Estimated GFR > 60.0 ML/MIN Glucose 127 H (74-106) mg/dL Calcium 8.0 L (8.4-10.2) mg/dL Total Bilirubin 0.50 (0.2-1.3) mg/dL AST 23 (17-59) U/L ALT 12 (0-50) U/L Alkaline Phosphatase 65 (38-126) U/L Troponin I 0.012 (0.000-0.034) ng/mL NT-Pro-B Natriuret Pep 326 (0-900) pg/mL Serum Total Protein 6.1 L (6.3-8.2) g/dL Albumin 3.2 L (3.5-5.0) g/dL Ethyl Alcohol < 10 (0-10) mg/dL SARS-CoV-2 Ag (Rapid) (NEGATIVE) - Progress Progress: improved Progress Note: 03/27/21 21:[address] Mejia 10mg IV Decadron Counseled pt/family regarding: lab results, diagnosis, need for follow-up, rad results - Departure Departure Disposition: Observation Clinical Impression: COVID-19 Condition: Stable Critical Care Time: No Referrals: ROSA GE NP [Primary Care Provider] - Follow up/PCP as directed
[2021-03-27 19:35] LABS: ALBUMIN 3.2 g/dL (3.5-5.0); ALKALINE PHOSPHATASE 65 U/L (38-126); ANION GAP 14.3 MEQ/L (5-15); BLOOD UREA NITROGEN 17 mg/dL (9-20); CHLORIDE 94 mmol/L (98-107); Carbon Dioxide 28 mmol/L (22-30); Creatinine 1 0.99 mg/dL (0.66-1.25); EST GLOMERULAR FILTRATION RATE > 60.0 ML/MIN; ETHYL ALCOHOL < 10 mg/dL (0-10); Glucose 127 mg/dL (74-106); NT PRO BNP 326 pg/mL (0-900); Potassium 3.7 mmol/L (3.5-5.1); SGOT/AST 23 U/L (17-59); SGPT/ALT 12 U/L (0-50); SODIUM 132 mmol/L (137-145); Total Protein 6.1 g/dL (6.3-8.2)
[2021-03-27 19:44] LABS: COVID AG -BINAX NOW RAPID TEST POSITIVE (NEGATIVE)
[2021-03-27] MEDS ORDERED: DECADRON 10MG INJ. IV ONE (19:53)
[2021-03-27] MEDS ORDERED: DECADRON 10MG INJ. ONE (20:12)
[2021-03-27] MEDS ORDERED: Zofran 4 MG/2 ML VIAL IV PRN (21:40)
[2021-03-27] MEDS ORDERED: VENTOLIN COMMON CANISTER IH PRN (21:40)
[2021-03-27] MEDS ORDERED: REMDESIVIR 200 MG in Sodium Chloride 0.9% 250 ML 250 ML IV ONE (21:44)
[2021-03-27] MEDS ORDERED: Pepcid 20 MG VIAL IV SCH (22:00)
[2021-03-27] MEDS ORDERED: Ventolin Hfa MDI IH ONE (22:54)
[2021-03-27] MEDS: VENTOLIN COMMON CANISTER IH SCH (23:20)
[2021-03-28] MEDS ORDERED: Ambien 10 MG PO SCH
[2021-03-28 05:00] LABS: Eosinophil 4 % (0.00-3.0); Lymphocytes 24 % (24-44); Monocyte 4 % (0.0-12.0); Neutrophils 68 % (36.-66.); Platelet Estimate NORMAL (NORMAL); Total Cells Counted 100
[2021-03-28 05:15] LABS: Absolute Neutrophil Ct (ANC) 1.51 (1.4-6.9); Basophil (Absolute #) 0 (0-0.4); Eosinophil (Absolute #) 0 (0-0.5); Hematocrit 44.9 % (42-50); Hemoglobin 14.7 gm/dl (12.5-18.0); Lymphocyte (Absolute #) 0.45 (1.0-4.6); Mean Cell Volume 100.9 fl (78-100); Mean Corpuscular Hgb Concent. 32.7 g/dl (32-36); Mean Platelet Volume 11.4 fl (7.5-11.0); Monocyte (Absolute #) 0.09 (0.0-1.3); Monocytes % 4.4 % (0.0-12.0); Neutrophil % 73.6 % (36.0-66.0); Platelet Count 119 K/mm3 (150-450); Red Blood Count 4.45 M/mm3 (4.1-5.6); Red Cell Distribution Width 13.1 % (11.5-14.0); White Blood Count 2.1 K/mm3 (4.0-10.5)
[2021-03-28 05:35] LABS: ALBUMIN 3.4 g/dL (3.5-5.0); ALKALINE PHOSPHATASE 76 U/L (38-126); ANION GAP 10.2 MEQ/L (5-15); BLOOD UREA NITROGEN 15 mg/dL (9-20); CHLORIDE 93 mmol/L (98-107); Calcium 8.2 mg/dL (8.4-10.2); Carbon Dioxide 33 mmol/L (22-30); Creatinine 1 0.86 mg/dL (0.66-1.25); EST GLOMERULAR FILTRATION RATE > 60.0 ML/MIN; Glucose 151 mg/dL (74-106); Potassium 3.6 mmol/L (3.5-5.1); SGOT/AST 22 U/L (17-59); SGPT/ALT 11 U/L (0-50); SODIUM 133 mmol/L (137-145); Total Protein 6.4 g/dL (6.3-8.2)
[2021-03-28 05:53] LABS: Slide Review 1 YES
[2021-03-28] MEDS: VENTOLIN COMMON CANISTER IH SCH (07:06)
--- NOTE | 2021-03-28 08:37 | XRAY ---
Indication: Cough. Positive Covid 19. Elevated d-dimer. Multiple contiguous axial images obtained through the chest using 80 cc Isovue 370 contrast and PE protocol. Comparison: None There is good opacification of the pulmonary arteries to include the lobar and segmental branches. No pulmonary embolus. Heart not enlarged. Aorta moderately arteriosclerotic without aneurysm/dissection. No pathologic mediastinal/hilar lymphadenopathy. Lungs demonstrates diffuse pulmonary emphysema, left lower lobe bullae, small left upper lobe calcified granuloma, and scattered bilateral mid to lower lung subsegmental atelectasis/scarring. No suspicious pulmonary mass, infiltrate, or effusion. 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 Limited upper abdomen demonstrates 1 cm left renal cyst. Impression: 1. Negative pulmonary embolus. No acute cardiopulmonary abnormalities. 2. Incidental pulmonary emphysema, scattered subsegmental atelectasis/scarring, chronic bony findings, left renal cyst, and old granulomatous disease.
--- NOTE | 2021-03-28 08:39 | XRAY ---
Indication: Cough. Comparison: June 24, 2014. Portable apical lordotic chest again demonstrates COPD and mild bibasilar subsegmental atelectasis/scarring. No focal infiltrate, consolidation, or large effusion. Heart not enlarged. Bony thorax intact again with osteopenia, degenerative changes, and scoliosis. Impression: Continued nonacute chest with chronic features.
[2021-03-28 08:44] VITALS: BP 131/70; O2SAT 93
[2021-03-28] MEDS ORDERED: Decadron 4 MG INJ IV SCH (10:00)
[2021-03-28] MEDS ORDERED: ENOXAPARIN SODIUM SQ SCH (10:00)
[2021-03-28] MEDS ORDERED: PROTONIX 40 MG IV IV SCH (10:00)
[2021-03-28 10:51] VITALS: PULSE 89
[2021-03-28] MEDS ORDERED: Ventolin Hfa MDI IH SCH (11:00)
[2021-03-28] MEDS ORDERED: VENTOLIN COMMON CANISTER IH SCH (11:00)
--- NOTE | 2021-03-28 14:34 | HP ---
CHIEF COMPLAINT: Shortness of breath, a little chest heaviness, not quite right. He broke out in a sweat mostly. HISTORY OF PRESENT ILLNESS: His family called the emergency room and they sent out an ambulance. He [place] out [place] [address] in [place]. By the time he got here most of his discomfort was gone. He apparently had a myocardial infarction in the past. His enzymes were normal. He seemed to be in no distress when he got here. He did test positive for COVID. He had two COVID shots and a booster, I think. He said he was nauseated. He did not feel dizzy, coughing, shortness of breath, headache. He has had fatigue for a couple of days really. He is 70 years old. He definitely has had some upper respiratory problems. He states he smokes a pack and a half a day. 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 He denies any fever, headache, myalgia or diarrhea now. By the time he got situated in the emergency room, he was ready to eat and feeling much better. CORONAVIRUS SCREENING: No close contact with COVID. COVID vaccine Moderna. I believe he said he got two. MEDICATIONS: Ambien 10, aspirin 162, Altace 5, Simvastatin 10, Metformin 500, nebivolol 5. ALLERGIES: NKDA. PAST MEDICAL HISTORY: Hypertension, myocardial infarction several years ago. He states he has some chronic obstructive pulmonary disease from smoking and working underground. PAST SURGICAL HISTORY: He had a cardiac stent several years ago. Appendectomy. Four stents placed. REVIEW OF SYSTEMS: CONSTITUTIONAL: HEENT: No problems hearing or seeing. NECK: No soreness. CHEST: Occasional cough. ABDOMEN: No nausea or vomiting. SKIN: No problems. ENDOCRINE: No problems. MUSCULOSKELETAL: Muscles kind of achy. SOCIAL HISTORY: He does smoke a pack and a half a day. No drug use. No alcohol use. PHYSICAL EXAMINATION: VITAL SIGNS: Pulse 62, respirations 18, blood pressure 100/76. O2 saturation 100%. HEENT: Pupils equal and reactive to light. NECK: Supple without adenopathy. CHEST: Clear. No tenderness over chest wall. No abnormalities. CVS: No murmurs or gallops. ABDOMEN: Soft. No masses or organomegaly. EXTREMITIES: Normal, fairly good strength for his age. LAB DATA AND TESTS: EKG showed no acute ST changes. Chest x-ray was okay. He was treated with dexamethasone 10 mg. His D-dimer and BNP, cardiac enzymes were negative. His white count was 4.2. Electrolytes were normal. D-dimer 869. INR was normal. Electrolytes normal. BNP was 326 which is well within normal. Ethyl alcohol was negative. HOSPITAL COURSE: The patient did have an elevated D-dimer and positive COVID test so he was placed as observation. He did have one vaccine, which is probably going to help them. He did receive Decadron. I will probably give him some anticoagulation. However at this point he is leaving so will let him go home. Follow up with his doctor and return if symptoms reoccur. PROGNOSIS: His prognosis is considered good.
[2021-03-28] MEDS ORDERED: REMDESIVIR 100 MG in Sodium Chloride 0.9% 100 ML BAG 100 ML IV SCH (22:00)
== END 2021-03-28 11:45 | disposition home or self-care (01) ==
LOC: ED 18:22 → MED SURG 22:30
PROVIDERS: ADMIT Family Medicine; ATTEND Family Medicine
DX: U07.1 COVID-19 (principal); J60 Coalworker's pneumoconiosis; I10 Essential (primary) hypertension; R79.89 Other specified abnormal findings of blood chemistry; I25.2 Old myocardial infarction; Z72.0 Tobacco use; Z79.899 Other long term (current) drug therapy
CPT/HCPCS: 36000; 36415; 71045; 71260; 80053; 83880; 84484; 85025; 85379; 85610; 85730; 93005; 93268; 94640; 94762; 96374; 99000; 99285; G0378; G0480; 80307; J0248; J1100; A9270-GY

== ENCOUNTER 2022-05-15 06:49 | Inpatient (IN) | payer MEDICARE, OTHER ==
--- NOTE | 2022-05-15 07:15 | ERPHSYRPT ---
- History of Present Illness Time Seen by Provider: 05/15/22 07:10 Historian: patient Exam Limitations: no limitations Patient Subjective Stated Complaint: pt states he has been having pain in his abd since yesterday. points to epigastric area, states pain comes in waves. Triage Nursing Assessment: pt alert and oriented, answers questions approp. pt arrive per ambulance and tranfsers to stretcher with assist of 3. respirations nonalbored. abd soft. pt reports waves of pain in epigastric area. bowel sounds hypo. skin warm and dry. Physician History: Patient is a 72-year-old male presents to emergency department via EMS for evaluation of epigastric pain. Epigastric pain started yesterday and has been progressive in nature. Patient describes pain as an intermittent pain that comes in waves. Patient admits to history of pancreatitis and states symptoms are similar. No trauma no fever. P.o. has decreased because of this pain. Patient admits to history of cardiac stents. Patient's bottle inspector is Dr. Bridgett calloway. Patient has a history of considerable alcohol use but states that he has no history of cirrhosis. Symptoms are moderate in intensity. Palpation to the epigastrium reproduces symptoms. Patient denies radiation of pain. Patient voices no other complaints or concerns at this time. Portions of this note were created with voice recognition technology. There may be grammatical, spelling, punctuation or sound alike errors Timing/Duration: yesterday Activities at Onset: none Quality: aching Abdominal Pain Onset Location: epigastric Pain Radiation: no radiation Severity of Pain-Max: moderate Severity of Pain-Current: mild Associated Symptoms: denies symptoms Previous symptoms: same symptoms as today Allergies/Adverse Reactions: No Known Drug Allergies Allergy (Verified 05/15/22 07:06) Home Medications: Zolpidem Tartrate [Ambien] 10 mg PO QHS 05/03/13 [History] Ramipril 5 mg [Altace 5 MG] 2.5 mg PO DAILY 06/24/14 [History] Metformin HCl 500 mg [Glucophage 500 MG] 1 tab PO BID 08/14/19 [History] Nebivolol HCl 5 MG [Bystolic 5 MG] 1 tab PO DAILY 08/14/19 [History] Ezetimibe/Simvastatin [Ezetimibe-Simvastatin 10-20 mg] 1 each PO DAILY 03/28/21 [History] Budesonide/Formoterol Fumarate [Budesonide-Formoterol 160-4.5] 1 inh IH DAILY 05/15/22 [History] Gabapentin [Neurontin ] 300 mg PO TID 05/15/22 [History] Hx Tetanus, Diphtheria Vaccination/Date Given: No Hx Influenza Vaccination/Date Given: Yes Hx Pneumococcal Vaccination/Date Given: Yes Immunizations Up to Date: No Travel Risk - International Travel Have you traveled outside of the country in past 3 weeks: No - Coronavirus Screening Are you exhibiting any of the following symptoms?: No Close contact with a COVID-19 positive Pt in past 14-21 Days: No - Vaccine Status Have you recieved a Covid-19 vaccination: Yes Security Support Analyst: Moderna - Vaccination Dates Date of 2cond Vaccination (if applicable): unknown - Review of Systems Constitutional: No Symptoms, No Fever, No Chills Eyes: No Symptoms Ears, Nose, & Throat: No Symptoms Respiratory: No Symptoms, No Cough, No Dyspnea Cardiac: No Symptoms, No Chest Pain, No Edema, No Syncope Abdominal/Gastrointestinal: No Symptoms, No Abdominal Pain, No Nausea, No Vomiti ng, No Diarrhea Genitourinary Symptoms: No Symptoms, No Dysuria Musculoskeletal: No Symptoms, No Back Pain, No Neck Pain Skin: No Symptoms, No Rash Neurological: No Symptoms, No Dizziness, No Focal Weakness, No Sensory Changes Psychological: No Symptoms Endocrine: No Symptoms Hematologic/Lymphatic: No Symptoms Immunological/Allergic: No Symptoms All Other Systems: Reviewed and Negative - Past Medical History Pertinent Past Medical History: Yes Neurological History: No Pertinent History ENT History: No Pertinent History Cardiac History: Coronary Artery Disease, Hypertension, Myocardial Infarction ([place]) Respiratory History: Asthma, COPD Endocrine Medical History: No Pertinent History Musculoskeletal History: No Pertinent History GI Medical History: No Pertinent History, Pancreatitis History: No Pertinent History Psycho-Social History: No Pertinent History Male Reproductive Disorders: No Pertinent History - Past Surgical History Past Surgical History: Yes Neuro Surgical History: No Pertinent History Cardiac: Cardiac Stent Respiratory: No Pertinent History Gastrointestinal: Appendectomy Genitourinary: No Pertinent History Musculoskeletal: No Pertinent History Male Surgical History: No Pertinent History Other Surgical History: 4 STENTS PLACED - Social History Smoking Status: Current every day smoker How long have you smoked: years Exposure to second hand smoke: Yes Drug Use: none Patient Lives Alone: No Significant Family History: no pertinent family hx - Nursing Vital Signs Nursing Vital Signs: Initial Vital Signs Temperature 97.0 F 05/15/22 06:52 Pulse Rate 104 H 05/15/22 06:52 Respiratory Rate 16 05/15/22 06:52 Blood Pressure 173/134 05/15/22 06:52 O2 Sat by Pulse Oximetry 92 L 05/15/22 06:52 Pain Scale Pain Intensity 2 - Physical Exam General Appearance: no apparent distress, alert Eye Exam: PERRL/EOMI, eyes nml inspection Ears, Nose, Throat Exam: normal ENT inspection, pharynx normal, moist mucous membranes Neck Exam: normal inspection, non-tender, supple, full range of motion Respiratory Exam: normal breath sounds, lungs clear, airway intact, No respiratory distress Cardiovascular Exam: regular rate/rhythm, normal heart sounds, normal peripheral pulses Gastrointestinal/Abdomen Exam: soft, normal bowel sounds, tenderness (Epigastric tenderness to palpation.), No mass, No guarding Back Exam: normal inspection, normal range of motion, No CVA tenderness, No vertebral tenderness Extremity Exam: normal inspection, normal range of motion, pelvis stable Neurologic Exam: alert, oriented x 3, cooperative, normal mood/affect, nml cerebellar function, sensation nml, No motor deficits Skin Exam: normal color, warm, dry Lymphatic Exam: No adenopathy SpO2 Interpretation: normal SpO2: 92 O2 Delivery: Room Air - Course Nursing assessment & vital signs reviewed: Yes EKG Interpreted by Me: RATE (91), Sinus Rhythm, NORMAL AXIS, NORMAL INTERVALS (Right ST elevation anterior leads. No reciprocal changes) - CT Exams Abdomen/Pelvis CT Interpretation: Tele-radiologist Report (CT reveals enteritis, small hiatal hernia, left lower lobe bullae, diverticulosis, hepatic cyst, right adrenal adenoma, bilateral renal cyst, lung nodule atherosclerotic disease) Ordered Tests: Active Orders 24 hr Category Date Time Status EKG-ER Only STAT Care 05/15/22 07:05 Active IV Insertion STAT Care 05/15/22 07:05 Active ABDOMEN AND PELVIS W/0 CONTRAS [CT] Stat Exams 05/15/22 07:07 Completed CBC W DIFF Stat Lab 05/15/22 07:02 Completed CMP Stat Lab 05/15/22 07:02 Completed LIPASE Stat Lab 05/15/22 07:02 Completed TROPONIN Q4H Lab 05/15/22 07:02 Completed TROPONIN Q4H Lab 05/15/22 10:30 Completed TROPONIN Q4H Lab 05/15/22 15:15 Ordered Transfer Order Routine Transfer 05/15/22 Ordered Medication Summary Discontinued Medications Generic Name Dose Route Start Last Admin Trade Name Jigna PRN Reason Stop Dose Admin Morphine Sulfate 4 mg 05/15/22 07:16 05/15/22 08:15 Morphine Sulfate 4 Mg/Ml Injection IV 05/15/22 07:17 4 mg STAT ONE Administration Morphine Sulfate Confirm 05/15/22 08:09 Morphine Sulfate 4 Mg/Ml Injection Administered 05/15/22 08:10 Dose 4 mg .ROUTE .STK-MED ONE Morphine Sulfate 4 mg 05/15/22 09:59 05/15/22 11:29 Morphine Sulfate 4 Mg/Ml Injection IV 05/15/22 10:00 4 mg STAT ONE Administration Morphine Sulfate Confirm 05/15/22 11:26 Morphine Sulfate 4 Mg/Ml Injection Administered 05/15/22 11:27 Dose 4 mg .ROUTE .STK-MED ONE Ondansetron HCl 4 mg 05/15/22 07:16 05/15/22 08:14 Ondansetron Hcl 4 Mg/2 Ml Vial IV 05/15/22 07:17 4 mg STAT ONE Administration Ondansetron HCl Confirm 05/15/22 08:08 Ondansetron Hcl 4 Mg/2 Ml Vial Administered 05/15/22 08:09 Dose 4 mg .ROUTE .STK-MED ONE Lab/Rad Data: Laboratory Result Diagrams 05/15/22 07:02 05/15/22 07:02 Laboratory Results 05/15/22 05/15/22 05/15/22 Range/Units 10:30 10:09 07:02 WBC (4.0-10.5) x10^3/uL RBC (4.1-5.6) x10^6/uL Hgb (12.5-18.0) g/dL Hct (42-50) % MCV (78-100) fL MCH (26-32) pg MCHC (32-36) g/dL RDW (11.5-14.0) % Plt Count (150-450) x10^3/uL MPV (7.5-11.0) fL Gran % (36.0-66.0) % Immature Gran % (Auto) (0.00-0.4) % Nucleat RBC Rel Count (0.00-0.1) % Eos # (Auto) (0-0.5) x10^3/uL Immature Gran # (Auto) (0.00-0.03) x10^3u/L Absolute Lymphs (auto) (1.0-4.6) x10^3/uL Absolute Monos (auto) (0.0-1.3) x10^3/uL Absolute Nucleated RBC (0.00-0.01) x10^3u/L Lymphocytes % (24.0-44.0) % Monocytes % (0.0-12.0) % Eosinophils % (0.00-5.0) % Basophils % (0.0-0.4) % Absolute Granulocytes (1.4-6.9) x10^3/uL Basophils # (0-0.4) x10^3/uL Sodium (137-145) mmol/L Potassium (3.5-5.1) mmol/L Chloride (98-107) mmol/L Carbon Dioxide (22-30) mmol/L Anion Gap (5-15) MEQ/L BUN (9-20) mg/dL Creatinine (0.66-1.25) mg/dL Estimated GFR ML/MIN Glucose (74-106) mg/dL Calcium (8.4-10.2) mg/dL Total Bilirubin (0.2-1.3) mg/dL AST (17-59) U/L ALT (0-50) U/L Alkaline Phosphatase (38-126) U/L Troponin I 0.020 0.020 (0.000-0.034) ng/mL Serum Total Protein (6.3-8.2) g/dL Albumin (3.5-5.0) g/dL Lipase (23-300) U/L Influenza Type A Ag NEGATIVE (NEGATIVE) Influenza Type B Ag NEGATIVE (NEGATIVE) RSV (PCR) NEGATIVE (NEGATIVE) SARS-CoV-2 (PCR) NEGATIVE (NEGATIVE) Slides for Path Review 05/15/22 05/15/22 Range/Units 07:02 07:02 WBC 6.1 (4.0-10.5) x10^3/uL RBC 4.35 (4.1-5.6) x10^6/uL Hgb 15.6 (12.5-18.0) g/dL Hct 46.8 (42-50) % MCV 107.6 H (78-100) fL MCH 35.9 H (26-32) pg MCHC 33.3 (32-36) g/dL RDW 13.6 (11.5-14.0) % Plt Count 174 (150-450) x10^3/uL MPV 11.0 (7.5-11.0) fL Gran % 74.5 H (36.0-66.0) % Immature Gran % (Auto) 0.3 (0.00-0.4) % Nucleat RBC Rel Count 0.0 (0.00-0.1) % Eos # (Auto) 0.01 (0-0.5) x10^3/uL Immature Gran # (Auto) 0.02 (0.00-0.03) x10^3u/L Absolute Lymphs (auto) 0.77 L (1.0-4.6) x10^3/uL Absolute Monos (auto) 0.74 (0.0-1.3) x10^3/uL Absolute Nucleated RBC 0.00 (0.00-0.01) x10^3u/L Lymphocytes % 12.6 L (24.0-44.0) % Monocytes % 12.1 H (0.0-12.0) % Eosinophils % 0.2 (0.00-5.0) % Basophils % 0.3 (0.0-0.4) % Absolute Granulocytes 4.56 (1.4-6.9) x10^3/uL Basophils # 0.02 (0-0.4) x10^3/uL Sodium 136 L (137-145) mmol/L Potassium 4.4 (3.5-5.1) mmol/L Chloride 96 L (98-107) mmol/L Carbon Dioxide 35 H (22-30) mmol/L Anion Gap 9.2 (5-15) MEQ/L BUN 12 (9-20) mg/dL Creatinine 0.53 L (0.66-1.25) mg/dL Estimated GFR > 60.0 ML/MIN Glucose 109 H (74-106) mg/dL Calcium 8.9 (8.4-10.2) mg/dL Total Bilirubin 0.50 (0.2-1.3) mg/dL AST 23 (17-59) U/L ALT 19 (0-50) U/L Alkaline Phosphatase 123 (38-126) U/L Troponin I (0.000-0.034) ng/mL Serum Total Protein 7.0 (6.3-8.2) g/dL Albumin 3.9 (3.5-5.0) g/dL Lipase 52 (23-300) U/L Influenza Type A Ag (NEGATIVE) Influenza Type B Ag (NEGATIVE) RSV (PCR) (NEGATIVE) SARS-CoV-2 (PCR) (NEGATIVE) Slides for Path Review YES - Progress Progress: improved Progress Note: Patient reassessed. Epigastric tenderness improved. We tried a p.o. challenge however p.o. challenge significantly exacerbated patient's pain. Patient states the morphine has significantly improved the overall pain. Troponin negative. However EKG suggestive of anterior ischemia. Physical exam consistent with intra-abdominal source of pain. CAT scan reveals a enteritis which would explain patient's symptomology. We are contacting Dr. Schneider for him to review the EKGs. 05/15/22 09:[address] Schneider. Dr. Schneider advised against administering heparin. Copies of EKG forwarded for his review 05/15/22 10:03 Dr. Schneider feels nothing concerning on the EKG. He states patient may stay at [facility] for evaluation and treatment of his abdominal pain/enteritis 05/15/22 10:06 Patient is a 72-year-old male presents to our ED for evaluation of epigastric pain. Work-up reveals a enteritis. In light of patient's cardiac history we also initiated a cardiac work-up. Troponin stable at 0.020. Testing includes EKG, CT abdomen pelvis, CBC CMP, COVID which was negative. Lipase within normal limits. Patient received morphine x2 doses for pain control on 2 different occasions. Patient received a total of 8 of morphine. Zofran administered for nausea. Patient has an extensive history of alcohol use. Per report he drinks approximately a gallon of vodka per week. No withdrawal symptomology in our ED. Case discussed with Dr. Roman who excepts admission to observation. Admit orders include Ativan in the event of withdrawal. Patient's presentation was acute in nature. Complexity of problems addressed is moderate. Patient's symptom is acute complicated by nausea and vomiting. Patient unable to tolerate oral intake. No critical care time. Complexity of data reviewed and analyzed was moderate. EKG labs imaging studies ordered reviewed and analyzed. Patient served as independent historian. No outside documentation reviewed however discussion of tests and results as well as management occurred with Dr. Wyatt novoa patient's bottle inspector. He advised against heparin. He does not feel there is a cardiac emergency occurring at this time. Plan of care discussed with Dr. Roman who accepts admission to observation. Plan of care discussed with patient. He agrees to admission [facility] for further evaluation and treatment. Risk of complications and or risk of morbidity/mortality of patient management is high. Patient received IV controlled medications. He received 2 separate doses of 4 mg morphine intravenously. Total of 8 morphine was administered. Patient will be hospitalized for further evaluation and treatment. Plan of care was established using the shared decision-making model. Vital stable. Patient voices no other complaints or concerns at this time. Portions of this note were created with voice recognition technology. There may be grammatical, spelling, punctuation or sound alike errors 05/15/22 12:17 Discussed with .: Randa Will see patient in: hospital (observation) Counseled pt/family regarding: lab results, diagnosis, rad results - Departure Departure Disposition: Observation Clinical Impression: Enteritis, Left lower lobe bullae, Small hiatal hernia, Diverticulosis, Hepatic cyst, Adenoma of right adrenal gland, Bilateral renal cysts, Lung nodule, Arteriosclerotic cardiovascular disease Condition: Stable Critical Care Time: No Referrals: ROSA GE NP [Primary Care Provider] - Follow up/PCP as directed
[2022-05-15] MEDS ORDERED: Zofran 4 MG/2 ML VIAL IV ONE (07:16)
[2022-05-15] MEDS ORDERED: MORPHINE SULFATE 4 MG INJ IV ONE ×2 (07:16→09:59)
[2022-05-15 07:23] LABS: Absolute Neutrophil Ct (ANC) 4.56 x10^3/uL (1.4-6.9); BASOPHIL % 0.3 % (0.0-0.4); Basophil (Absolute #) 0.02 x10^3/uL (0-0.4); Eosinophil % 0.2 % (0.00-5.0); Eosinophil (Absolute #) 0.01 x10^3/uL (0-0.5); Hematocrit 46.8 % (42-50); Hemoglobin 15.6 g/dL (12.5-18.0); IMMATURE GRAN # 0.02 x10^3u/L (0.00-0.03); IMMATURE GRAN % 0.3 % (0.00-0.4); Lymphocyte (Absolute #) 0.77 x10^3/uL (1.0-4.6); Lymphocytes % 12.6 % (24.0-44.0); Mean Cell Volume 107.6 fL (78-100); Mean Corpuscular Hemoglobin 35.9 pg (26-32); Mean Corpuscular Hgb Concent. 33.3 g/dL (32-36); Monocyte (Absolute #) 0.74 x10^3/uL (0.0-1.3); Monocytes % 12.1 % (0.0-12.0); Neutrophil % 74.5 % (36.0-66.0); Platelet Count 174 x10^3/uL (150-450); Red Blood Count 4.35 x10^6/uL (4.1-5.6); Red Cell Distribution Width 13.6 % (11.5-14.0); White Blood Count 6.1 x10^3/uL (4.0-10.5)
[2022-05-15 08:07] LABS: ALBUMIN 3.9 g/dL (3.5-5.0); ALKALINE PHOSPHATASE 123 U/L (38-126); ANION GAP 9.2 MEQ/L (5-15); BLOOD UREA NITROGEN 12 mg/dL (9-20); CHLORIDE 96 mmol/L (98-107); Calcium 8.9 mg/dL (8.4-10.2); Carbon Dioxide 35 mmol/L (22-30); Creatinine 1 0.53 mg/dL (0.66-1.25); EST GLOMERULAR FILTRATION RATE > 60.0 ML/MIN; Glucose 109 mg/dL (74-106); LIPASE 52 U/L (23-300); Potassium 4.4 mmol/L (3.5-5.1); SGOT/AST 23 U/L (17-59); SGPT/ALT 19 U/L (0-50); SODIUM 136 mmol/L (137-145)
[2022-05-15] MEDS ORDERED: Zofran 4 MG/2 ML VIAL ONE (08:08)
[2022-05-15] MEDS ORDERED: MORPHINE SULFATE 4 MG INJ ONE ×2 (08:09→11:26)
--- NOTE | 2022-05-15 08:39 | XRAY ---
Indication: Epigastric pain. Multiple contiguous axial images obtained through the abdomen and pelvis without contrast. Comparison: August 14, 2019 Lung bases again hyperinflated with medial left lower lobe bullae and 4 mm benign posterior right lower lobe noncalcified nodule. No infiltrate or effusion. Heart not enlarged. New small hiatal hernia. Noncontrasted stomach and bowel loops nonobstructed. Several mid to lower small bowel loops now demonstrates mild segmental wall thickening favoring enteritis. Again reported appendectomy. Stable sigmoid diverticulosis, hepatic cysts, small right adrenal adenoma, and bilateral renal cysts. No free fluid/air. Remaining liver, gallbladder, pancreas, spleen, adrenal glands, kidneys, ureters, and bladder are unremarkable for noncontrast exam. Again heavy scattered air-fluid iliac calcifications without AAA. Osseous structures intact again with osteopenia, mild multilevel degenerative spondylosis, and L5 spondylolysis with minimal grade 1 listhesis. Impression: 1. New mild small bowel wall thickening favoring enteritis. 2. New small hiatal hernia. 3. Stable pulmonary emphysema, benign right lower lobe noncalcified micronodule, hepatic/renal cysts, sigmoid diverticulosis, right adrenal adenoma, arteriosclerotic disease, and chronic bony findings.
[2022-05-15 10:18] LABS: Slide Review 1 YES
[2022-05-15 10:42] LABS: INFLUENZA A NEGATIVE (NEGATIVE); INFLUENZA B NEGATIVE (NEGATIVE); RESPIRATORY SYNCTIAL VIRUS NEGATIVE (NEGATIVE); SARS-CoV-2 Xpert Express NEGATIVE (NEGATIVE)
[2022-05-15] MEDS: Sodium Chloride 0.9% 1000 ML 1,000 ML IV SCH ×2 (13:52→22:46)
[2022-05-15] MEDS: MELOXICAM PO SCH (15:32)
[2022-05-15] MEDS: NEURONTIN PO SCH ×2 (15:33→22:40)
[2022-05-15] MEDS: Altace 1.25 MG PO SCH (15:33)
[2022-05-15] MEDS: ECOTRIN 81 MG PO SCH (15:34)
[2022-05-15] MEDS: Zetia 10 MG PO SCH (15:34)
[2022-05-15] MEDS: Bystolic 5 MG PO SCH (15:34)
[2022-05-15] MEDS: ZOCOR 20MG PO SCH (15:35)
[2022-05-15] MEDS ORDERED: PROVENTIL 2.5 MG/3 ML NEB IH PRN (15:37)
[2022-05-15] MEDS: Glucophage 500 MG PO SCH (16:09)
[2022-05-15] MEDS: MORPHINE SULFATE 2 MG INJ IV PRN (16:09)
[2022-05-15] MEDS: Advair Hfa 115/21 Common canister IH SCH (18:55)
[2022-05-15] MEDS: Zofran 4 MG/2 ML VIAL IV PRN (20:50)
[2022-05-15] MEDS: Ambien 10 MG PO SCH (22:40)
[2022-05-16 05:12] LABS: Absolute Neutrophil Ct (ANC) 2.81 x10^3/uL (1.4-6.9); BASOPHIL % 0.5 % (0.0-0.4); Basophil (Absolute #) 0.02 x10^3/uL (0-0.4); Eosinophil % 0.2 % (0.00-5.0); Eosinophil (Absolute #) 0.01 x10^3/uL (0-0.5); Hematocrit 41.3 % (42-50); Hemoglobin 13.1 g/dL (12.5-18.0); IMMATURE GRAN # 0.02 x10^3u/L (0.00-0.03); IMMATURE GRAN % 0.5 % (0.00-0.4); Lymphocyte (Absolute #) 0.67 x10^3/uL (1.0-4.6); Lymphocytes % 16.1 % (24.0-44.0); Mean Cell Volume 109.8 fL (78-100); Mean Corpuscular Hemoglobin 34.8 pg (26-32); Mean Corpuscular Hgb Concent. 31.7 g/dL (32-36); Mean Platelet Volume 11.1 fL (7.5-11.0); Monocyte (Absolute #) 0.63 x10^3/uL (0.0-1.3); Monocytes % 15.1 % (0.0-12.0); Neutrophil % 67.6 % (36.0-66.0); Platelet Count 162 x10^3/uL (150-450); Red Blood Count 3.76 x10^6/uL (4.1-5.6); White Blood Count 4.2 x10^3/uL (4.0-10.5)
[2022-05-16 05:39] LABS: ALBUMIN 3.3 g/dL (3.5-5.0); ALKALINE PHOSPHATASE 103 U/L (38-126); ANION GAP 10.3 MEQ/L (5-15); BLOOD UREA NITROGEN 12 mg/dL (9-20); CHLORIDE 100 mmol/L (98-107); Carbon Dioxide 30 mmol/L (22-30); Creatinine 1 0.49 mg/dL (0.66-1.25); EST GLOMERULAR FILTRATION RATE > 60.0 ML/MIN; Glucose 105 mg/dL (74-106); Potassium 4.7 mmol/L (3.5-5.1); SGOT/AST 18 U/L (17-59); SGPT/ALT 14 U/L (0-50); SODIUM 136 mmol/L (137-145); Total Protein 6.3 g/dL (6.3-8.2)
[2022-05-16] MEDS: NORCO 7.5/325 MG TAB PO PRN ×3 (06:07→23:45)
[2022-05-16] MEDS: Advair Hfa 115/21 Common canister IH SCH ×2 (06:40→19:35)
[2022-05-16] MEDS: Glucophage 500 MG PO SCH (08:00)
[2022-05-16] MEDS: Sodium Chloride 0.9% 1000 ML 1,000 ML IV SCH ×2 (08:56→22:59)
[2022-05-16] MEDS: Nicoderm CQ 21 MG TOP SCH (09:03)
[2022-05-16] MEDS: MORPHINE SULFATE 2 MG INJ IV PRN ×2 (09:41→14:45)
[2022-05-16] MEDS: Zofran 4 MG/2 ML VIAL IV PRN (09:41)
[2022-05-16] MEDS ORDERED: EZETIMIBE PO SCH (10:00)
[2022-05-16] MEDS ORDERED: [UNRECOGNIZED DRUG - OTHER] PO SCH (10:00)
[2022-05-16] MEDS ORDERED: NON-FORMULARY ITEM (Budesonide/Formoterol Fumarate [Budesonide-Formoterol 160-4.5] 10.2 GM IH SCH (10:00)
[2022-05-16] MEDS ORDERED: SIMVASTATIN PO SCH (10:00)
[2022-05-16] MEDS ORDERED: NON-FORMULARY ITEM (Meloxicam 15 Mg [Meloxicam 15 Mg] 15 MG Tablet) PO SCH (10:00)
[2022-05-16] MEDS: MELOXICAM PO SCH (10:39)
[2022-05-16] MEDS: NEURONTIN PO SCH ×3 (10:39→22:59)
[2022-05-16] MEDS: Bystolic 5 MG PO SCH (10:39)
[2022-05-16] MEDS: Pepcid 20 MG PO SCH (10:40)
[2022-05-16] MEDS: Protonix 40MG Tablet PO SCH (10:40)
[2022-05-16] MEDS: Altace 1.25 MG PO SCH (10:41)
[2022-05-16] MEDS: ZOCOR 20MG PO SCH (10:42)
[2022-05-16] MEDS: ECOTRIN 81 MG PO SCH (10:42)
[2022-05-16] MEDS: Zetia 10 MG PO SCH (10:42)
--- NOTE | 2022-05-16 13:31 | XRAY ---
Indication: Pain. Mesenteric stenosis. Multiple contiguous axial images obtained through the abdomen and pelvis using 80 cc Isovue 370 contrast. Comparison: One day earlier Lung bases demonstrates new marked right middle and bilateral lower lobe consolidating/nonconsolidating airspace disease with tiny bilateral effusions. Heart not enlarged. There is now small fluid in distal esophagus presumed from reflux. Noncontrasted stomach and bowel loops remain nonobstructed. Several small bowel loops again demonstrates mild circumferential wall thickening either incomplete distention versus enteritis. No pneumatosis intestinalis or evidence bowel ischemia. Stable hepatic cysts, sigmoid diverticulosis, right adrenal adenoma, and bilateral renal cysts. No free fluid/air. Remaining liver, gallbladder, pancreas, spleen, adrenal glands, kidneys, ureters, and bladder are unremarkable. Again extensive scattered aortoiliac calcifications. No AAA or pathologic retroperitoneal lymphadenopathy. Impression: 1. New marked right middle and bilateral lower lobe consolidating/nonconsolidating airspace disease with tiny bilateral effusions. Fluid in distal esophagus favors reflux. Rule out aspiration. 2. Stable small bowel wall thickening either enteritis versus incomplete distention. 3. Again chronic findings including hepatic/renal cysts, sigmoid diverticulosis, right adrenal adenoma, and arteriosclerotic disease.
[2022-05-16] MEDS: HOLD METFORMIN PRODUCTS FOR 48 HOURS MC SCH (17:13)
[2022-05-16] MEDS: Ativan 2 MG/1 ML VIAL IV PRN (17:48)
[2022-05-16] MEDS ORDERED: Ativan 1 MG PO PRN (18:50)
[2022-05-16] MEDS: Ambien 10 MG PO SCH ×2 (22:59→23:42)
[2022-05-17] MEDS: Ativan 2 MG/1 ML VIAL IV PRN ×2 (03:43→19:47)
[2022-05-17 05:10] LABS: Hematocrit 38.8 % (42-50); Hemoglobin 12.5 g/dL (12.5-18.0); Mean Cell Volume 111.8 fL (78-100); Mean Corpuscular Hgb Concent. 32.2 g/dL (32-36); Mean Platelet Volume 11.3 fL (7.5-11.0); Platelet Count 135 x10^3/uL (150-450); Red Blood Count 3.47 x10^6/uL (4.1-5.6); Red Cell Distribution Width 13.9 % (11.5-14.0); White Blood Count 22.4 x10^3/uL (4.0-10.5)
[2022-05-17 05:41] LABS: Iron 18 ug/dL (49-181); Iron Saturation 6 % (20-39); TIBC 309 ug/dL (261-497)
[2022-05-17] MEDS: Advair Hfa 115/21 Common canister IH SCH ×2 (07:44→17:26)
[2022-05-17 09:55] LABS: Slide Review YES
[2022-05-17] MEDS: Zofran 4 MG/2 ML VIAL IV PRN ×3 (10:29→19:48)
[2022-05-17] MEDS: Levofloxacin 500MG/100ML D5W 500 MG/100 ML BAG IV SCH ×2 (10:30→11:04)
[2022-05-17] MEDS: Bystolic 5 MG PO SCH (10:35)
[2022-05-17] MEDS: ECOTRIN 81 MG PO SCH (10:35)
[2022-05-17] MEDS: Altace 1.25 MG PO SCH (10:35)
[2022-05-17] MEDS: Nicoderm CQ 21 MG TOP SCH (10:37)
[2022-05-17] MEDS: MELOXICAM PO SCH (11:02)
[2022-05-17] MEDS: NEURONTIN PO SCH ×3 (11:02→19:48)
[2022-05-17] MEDS: Pepcid 20 MG PO SCH (11:02)
[2022-05-17] MEDS: ZOCOR 20MG PO SCH (11:03)
[2022-05-17] MEDS: Protonix 40MG Tablet PO SCH (11:03)
[2022-05-17] MEDS: Zetia 10 MG PO SCH (11:03)
[2022-05-17] MEDS: FLAGYL 500 MG IVPB 500 MG/100 ML BAG IV SCH ×3 (11:05→20:54)
[2022-05-17] MEDS: MORPHINE SULFATE 2 MG INJ IV PRN ×6 (11:13→23:50)
[2022-05-17 12:05] LABS: Folate (Folic Acid) 2.67 ng/mL (2.76 - >20)
[2022-05-17] MEDS: Sodium Chloride 0.9% 1000 ML 1,000 ML IV SCH (12:36)
[2022-05-17] MEDS ORDERED: Nitrostat 0.4 MG Tablet SL PRN (17:13)
[2022-05-17] MEDS ORDERED: Nitrostat 0.4 MG Tablet SL ONE (17:16)
[2022-05-17] MEDS: Ambien 10 MG PO SCH (23:50)
[2022-05-18] MEDS: Sodium Chloride 0.9% 1000 ML 1,000 ML IV SCH ×2 (03:01→21:28)
[2022-05-18] MEDS: MORPHINE SULFATE 2 MG INJ IV PRN ×4 (03:02→16:48)
[2022-05-18] MEDS: Advair Hfa 115/21 Common canister IH SCH ×2 (07:30→19:40)
[2022-05-18] MEDS: Nicoderm CQ 21 MG TOP SCH (10:05)
[2022-05-18] MEDS: ROCEPHIN 1 Gm-D5w 50 ml Bag** 1 G/50 ML IVPB IV SCH (10:06)
[2022-05-18] MEDS: Zithromax 500 MG/ 250 ML NaCl Premix 500 MG/250 ML IVPB IV SCH (10:55)
[2022-05-18] MEDS: ECOTRIN 81 MG PO SCH (11:36)
[2022-05-18] MEDS: NEURONTIN PO SCH ×3 (11:36→21:34)
[2022-05-18] MEDS: Bystolic 5 MG PO SCH (11:36)
[2022-05-18] MEDS: MELOXICAM PO SCH (11:36)
[2022-05-18] MEDS: Altace 1.25 MG PO SCH (11:36)
[2022-05-18] MEDS: ZOCOR 20MG PO SCH (11:37)
[2022-05-18] MEDS: Zetia 10 MG PO SCH (11:37)
[2022-05-18] MEDS: Protonix 40MG Tablet PO SCH (11:37)
[2022-05-18] MEDS: Pepcid 20 MG PO SCH (11:37)
--- NOTE | 2022-05-18 12:46 | XRAY ---
Indication: Elevated d-dimer. Pulmonary embolus. Multiple contiguous axial images obtained through the chest using 80 cc Isovue 370 contrast and PE protocol. Comparison: March 27, 2021 Good opacification of the pulmonary arteries. Mild respiration artifact limits evaluation of the more distal segmental branches. No obvious central pulmonary embolus. Heart not enlarged again with scattered coronary calcifications. Aorta remains moderately arteriosclerotic without aneurysm/dissection. No pathologic mediastinal lymphadenopathy. New moderate size hiatal hernia with partial intrathoracic stomach. Gastric debris in more proximal esophagus favors reflux. Lungs again demonstrate diffuse pulmonary emphysema, medial left lower lobe bullae, and small left upper lobe calcified granuloma. New marked consolidating/nonconsolidating airspace disease in both lower and right middle lobes with moderate bilateral pleural effusions. Also new lesser groundglass airspace disease in the posterior right upper lobe. 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 Impression: 1. Respiration artifact limits pulmonary embolus evaluation. No obvious pulmonary embolus. 2. New marked bilateral consolidating/nonconsolidating airspace disease with moderate bilateral effusions. 3. New hiatal hernia with partial intrathoracic stomach and esophageal reflux. 4. Again chronic findings including pulmonary emphysema, arteriosclerotic disease, chronic bony findings, and old granulomatous disease.
[2022-05-18] MEDS: FLAGYL 500 MG IVPB 500 MG/100 ML BAG IV SCH ×3 (12:57→21:27)
[2022-05-18] MEDS: HOLD METFORMIN PRODUCTS FOR 48 HOURS MC SCH (16:14)
[2022-05-18] MEDS: Lasix 40 MG/4 ML IV SCH (17:02)
[2022-05-18] MEDS: Ambien 10 MG PO SCH (21:28)
[2022-05-19 05:12] LABS: Hematocrit 36.1 % (42-50); Hemoglobin 11.5 g/dL (12.5-18.0); Mean Cell Volume 110.4 fL (78-100); Mean Corpuscular Hemoglobin 35.2 pg (26-32); Mean Corpuscular Hgb Concent. 31.9 g/dL (32-36); Mean Platelet Volume 11.9 fL (7.5-11.0); Platelet Count 128 x10^3/uL (150-450); Red Blood Count 3.27 x10^6/uL (4.1-5.6); Red Cell Distribution Width 13.7 % (11.5-14.0); White Blood Count 5.9 x10^3/uL (4.0-10.5)
[2022-05-19 05:40] LABS: ALBUMIN 2.8 g/dL (3.5-5.0); ALKALINE PHOSPHATASE 74 U/L (38-126); ANION GAP 11.4 MEQ/L (5-15); BLOOD UREA NITROGEN 16 mg/dL (9-20); CHLORIDE 97 mmol/L (98-107); Carbon Dioxide 32 mmol/L (22-30); Creatinine 1 0.55 mg/dL (0.66-1.25); EST GLOMERULAR FILTRATION RATE > 60.0 ML/MIN; Glucose 89 mg/dL (74-106); MAGNESIUM 1.5 mg/dL (1.6-2.3); SGOT/AST 22 U/L (17-59); SGPT/ALT 13 U/L (0-50); SODIUM 137 mmol/L (137-145); Total Protein 5.5 g/dL (6.3-8.2)
[2022-05-19] MEDS: Lasix 40 MG/4 ML IV SCH ×2 (06:15→17:31)
[2022-05-19 07:18] LABS: ATYPICAL LYMPHS 2 %; BAND 1 % (0.0-2.0); Lymphocytes 6 % (24-44); Monocyte 2 % (0.0-12.0); Neutrophils 89 % (36.-66.); Total Cells Counted 100
[2022-05-19] MEDS: Advair Hfa 115/21 Common canister IH SCH ×2 (07:24→19:35)
[2022-05-19 07:34] LABS: Dohle Bodies 1+
[2022-05-19 07:38] LABS: ANISOCYTOSIS 1+; Macrocytosis 1+; Platelet Estimate INCREASED (NORMAL)
[2022-05-19] MEDS: Nicoderm CQ 21 MG TOP SCH (08:14)
[2022-05-19] MEDS: Sodium Chloride 0.9% 1000 ML 1,000 ML IV SCH (08:56)
[2022-05-19] MEDS: Pepcid 20 MG PO SCH (09:52)
[2022-05-19] MEDS: Zetia 10 MG PO SCH (09:53)
[2022-05-19] MEDS: Altace 1.25 MG PO SCH (09:53)
[2022-05-19] MEDS: NEURONTIN PO SCH ×3 (09:53→21:07)
[2022-05-19] MEDS: Bystolic 5 MG PO SCH (09:53)
[2022-05-19] MEDS: MELOXICAM PO SCH (09:53)
[2022-05-19] MEDS: ECOTRIN 81 MG PO SCH (09:54)
[2022-05-19] MEDS: FLAGYL 500 MG IVPB 500 MG/100 ML BAG IV SCH ×3 (09:54→21:07)
[2022-05-19] MEDS: ZOCOR 20MG PO SCH (09:54)
[2022-05-19] MEDS: Protonix 40MG Tablet PO SCH (09:54)
[2022-05-19] MEDS ORDERED: PHARMACY DOSING REQUEST MC ONE (10:35)
[2022-05-19] MEDS: ROCEPHIN 1 Gm-D5w 50 ml Bag** 1 G/50 ML IVPB IV SCH (11:02)
[2022-05-19] MEDS: Zithromax 500 MG/ 250 ML NaCl Premix 500 MG/250 ML IVPB IV SCH (11:45)
[2022-05-19] MEDS ORDERED: Vitamins For Infusion 10 ML INJECTION*** 10 ML, THIAMINE 200 MG/2 ML*** 100 MG, FOLNATE... IV SCH ×4 (12:00)
[2022-05-19] MEDS: TYLENOL 325 MG PO PRN (12:31)
[2022-05-19] MEDS: Ambien 10 MG PO SCH (21:07)
[2022-05-20] MEDS: TYLENOL 325 MG PO PRN ×2 (04:17→07:36)
[2022-05-20 05:39] LABS: Hematocrit 37.7 % (42-50); Hemoglobin 12.5 g/dL (12.5-18.0); Mean Cell Volume 107.7 fL (78-100); Mean Corpuscular Hemoglobin 35.7 pg (26-32); Mean Corpuscular Hgb Concent. 33.2 g/dL (32-36); Red Cell Distribution Width 13.9 % (11.5-14.0); White Blood Count 4.6 x10^3/uL (4.0-10.5)
[2022-05-20 05:55] LABS: ALBUMIN 3.1 g/dL (3.5-5.0); ALKALINE PHOSPHATASE 67 U/L (38-126); ANION GAP 8.4 MEQ/L (5-15); BLOOD UREA NITROGEN 16 mg/dL (9-20); CHLORIDE 95 mmol/L (98-107); Calcium 7.8 mg/dL (8.4-10.2); Carbon Dioxide 36 mmol/L (22-30); Creatinine 1 0.55 mg/dL (0.66-1.25); EST GLOMERULAR FILTRATION RATE > 60.0 ML/MIN; Glucose 102 mg/dL (74-106); Potassium 3.4 mmol/L (3.5-5.1); SGOT/AST 22 U/L (17-59); SGPT/ALT 13 U/L (0-50); SODIUM 136 mmol/L (137-145); Total Protein 5.9 g/dL (6.3-8.2)
[2022-05-20] MEDS: Lasix 40 MG/4 ML IV SCH ×2 (06:28→17:14)
[2022-05-20 06:53] LABS: Platelet Count 140 x10^3/uL (150-450); Slide Review YES
[2022-05-20] MEDS: Nicoderm CQ 21 MG TOP SCH (07:35)
[2022-05-20] MEDS: Advair Hfa 115/21 Common canister IH SCH ×2 (07:37→19:31)
--- NOTE | 2022-05-20 08:24 | XRAY ---
Indication: Pneumonia. Comparison: March 27, 2021 Portable chest again demonstrates COPD with new recent CT proven bibasilar consolidating/nonconsolidating airspace disease and effusions, right greater than left. Heart not enlarged. Bony thorax intact again with osteopenia and degenerative changes.
[2022-05-20] MEDS: MELOXICAM PO SCH (09:07)
[2022-05-20] MEDS: Altace 1.25 MG PO SCH (09:07)
[2022-05-20] MEDS: NEURONTIN PO SCH ×3 (09:08→21:02)
[2022-05-20] MEDS: Bystolic 5 MG PO SCH (09:08)
[2022-05-20] MEDS: Protonix 40MG Tablet PO SCH (09:08)
[2022-05-20] MEDS: Pepcid 20 MG PO SCH (09:09)
[2022-05-20] MEDS: FLAGYL 500 MG IVPB 500 MG/100 ML BAG IV SCH ×3 (09:09→21:02)
[2022-05-20] MEDS: Zetia 10 MG PO SCH (09:09)
[2022-05-20] MEDS: ZOCOR 20MG PO SCH (09:09)
[2022-05-20] MEDS: ECOTRIN 81 MG PO SCH (09:10)
[2022-05-20] MEDS: ROCEPHIN 1 Gm-D5w 50 ml Bag** 1 G/50 ML IVPB IV SCH (09:58)
[2022-05-20] MEDS: Zithromax 500 MG/ 250 ML NaCl Premix 500 MG/250 ML IVPB IV SCH (10:41)
[2022-05-20] MEDS: Klor Con PO SCH (12:25)
[2022-05-20] MEDS: Glucophage 500 MG PO SCH ×2 (12:25→17:12)
[2022-05-20] MEDS: solu-MEDROL 60 MG, Sterile H2O 10 ml 2 ML IV SCH ×4 (14:02→21:02)
[2022-05-20] MEDS: DUONEB 0.5-3 MG/3 ml Neb IH SCH ×2 (15:15→19:31)
[2022-05-20] MEDS: Ambien 10 MG PO SCH (21:02)
[2022-05-21] MEDS: solu-MEDROL 60 MG, Sterile H2O 10 ml 2 ML IV SCH ×4 (06:08→13:53)
[2022-05-21] MEDS: Lasix 40 MG/4 ML IV SCH (06:08)
[2022-05-21] MEDS: DUONEB 0.5-3 MG/3 ml Neb IH SCH ×2 (06:51→10:50)
[2022-05-21] MEDS: Advair Hfa 115/21 Common canister IH SCH (06:54)
[2022-05-21] MEDS: Nicoderm CQ 21 MG TOP SCH (07:49)
[2022-05-21] MEDS: Glucophage 500 MG PO SCH (07:49)
[2022-05-21] MEDS: ROCEPHIN 1 Gm-D5w 50 ml Bag** 1 G/50 ML IVPB IV SCH (08:22)
[2022-05-21] MEDS: Zithromax 500 MG/ 250 ML NaCl Premix 500 MG/250 ML IVPB IV SCH (09:56)
[2022-05-21] MEDS: Klor Con PO SCH (09:58)
[2022-05-21] MEDS: MELOXICAM PO SCH (09:58)
[2022-05-21] MEDS: Pepcid 20 MG PO SCH (09:58)
[2022-05-21] MEDS: Zetia 10 MG PO SCH (09:59)
[2022-05-21] MEDS: Altace 1.25 MG PO SCH (09:59)
[2022-05-21] MEDS: Protonix 40MG Tablet PO SCH (09:59)
[2022-05-21] MEDS: NEURONTIN PO SCH (09:59)
[2022-05-21] MEDS: FLAGYL 500 MG IVPB 500 MG/100 ML BAG IV SCH (10:00)
[2022-05-21] MEDS: ECOTRIN 81 MG PO SCH (10:00)
[2022-05-21] MEDS: Bystolic 5 MG PO SCH (10:00)
[2022-05-21] MEDS: ZOCOR 20MG PO SCH (10:00)
[2022-05-21 11:42] VITALS: BP 142/89; PULSE 128; O2SAT 95
--- NOTE | 2022-06-01 08:12 | ECHO ---
DATE OF PROCEDURE: 05/18/2022 CLINICAL INFORMATION: Congestive heart failure. The echocardiogram is a technically difficult limited study due to patient coughing and limited lung windows. The underlying rhythm appears to be atrial fibrillation. The left ventricle is normal in size. There is mild concentric left ventricular hypertrophy. Left ventricle contractility is normal. The ejection fraction is calculated to be 58%. The right ventricle is not well visualized. The left atrium is not well visualized. The interatrial septum is intact. The right atrium is not well visualized. The aortic valve has decreased leaflet motion present. There is mitral valve leaflet thickening associated with mild mitral regurgitation. There is also mitral valvular calcification. There is mild tricuspid regurgitation. The right ventricular systolic pressure is calculated to be 22 mm of Mercury. The pulmonic valve is not well visualized. The aortic root is normal. There is no pericardial effusion. IMPRESSION: 1) NORMAL CONTRACTILITY OF THE LEFT VENTRICLE. 2) MILD CONCENTRIC LEFT VENTRICULAR HYPERTROPHY. 3) MILD MITRAL REGURGITATION. 4) MILD TRICUSPID REGURGITATION. 5) NORMAL RIGHT VENTRICULAR SYSTOLIC PRESSURE.
--- NOTE | 2022-06-04 00:38 | PCM.HP ---
History of Present Illness - Chief Complaint Chief Complaint: Enteritis, abdominal pain Date: 05/16/22 History of Present Illness: Patient is a 72-year-old male presents to emergency department via EMS for evaluation of epigastric pain. Epigastric pain started yesterday and has been progressive in nature. Patient describes pain as an intermittent pain that comes in waves. Patient admits to history of pancreatitis and states symptoms are similar. No trauma no fever. P.o. has decreased because of this pain. Patient admits to history of cardiac stents. 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 Bridgett calloway. Patient has a history of considerable alcohol use but states that he has no history of cirrhosis. Symptoms are moderate in intensity. Palpation to the epigastrium reproduces symptoms. Patient denies radiation of pain. Patient voices no other complaints or concerns at this time. - Review of Systems Constitutional: No Fever, No Chills Eyes: No Symptoms Ears, Nose, & Throat: No Symptoms Respiratory: No Cough, No Short Of Breath Cardiac: No Chest Pain, No Edema, No Syncope Abdominal/Gastrointestinal: Abdominal Pain, Nausea, Vomiting, No Diarrhea Genitourinary Symptoms: No Dysuria Musculoskeletal: No Back Pain, No Neck Pain Skin: No Rash Neurological: No Dizziness, No Focal Weakness, No Sensory Changes Psychological: No Symptoms Endocrine: No Symptoms Hematologic/Lymphatic: No Symptoms Immunological/Allergic: No Symptoms Medications & Allergies Home Medications: Home Medication List Zolpidem Tartrate [Ambien] 10 mg PO QHS 05/03/13 [History Confirmed 05/15/22] Ramipril 5 mg [Altace 5 MG] 2.5 mg PO DAILY 06/24/14 [History Confirmed 05/15/22] Metformin HCl 500 mg [Glucophage 500 MG] 1 tab PO BID 08/14/19 [History Confirmed 05/15/22] Nebivolol HCl 5 MG [Bystolic 5 MG] 1 tab PO DAILY 08/14/19 [History Confirmed 05/15/22] Ezetimibe/Simvastatin [Ezetimibe-Simvastatin 10-20 mg] 1 each PO DAILY 03/28/21 [History Confirmed 05/15/22] Aspirin EC 81 mg [Ecotrin 81 mg] 81 mg PO DAILY 05/15/22 [History Confirmed 05/15/22] Budesonide/Formoterol Fumarate [Budesonide-Formoterol 160-4.5] 1 inh IH DAILY 05/15/22 [History Confirmed 05/15/22] Gabapentin [Neurontin ] 300 mg PO TID 05/15/22 [History Confirmed 05/15/22] PANTOPRAZOLE 40 mg Tablet [Protonix 40MG Tablet] 40 mg PO QAM 90 Days #90 tab 05/21/22 [Rx] Allergies/Adverse Reactions: Allergies Allergy/AdvReac Type Severity Reaction Status Date / Time No Known Drug Allergies Allergy Verified 05/15/22 07:06 - Past Medical History Past Medical History: Yes Neurological History: No Pertinent History ENT History: No Pertinent History Cardiac History: Coronary Artery Disease, Hypertension, Myocardial Infarction ([place]) Respiratory History: Asthma, COPD Endocrine Medical History: No Pertinent History Musculoskelatal History: No Pertinent History GI Medical History: No Pertinent History, Pancreatitis History: No Pertinent History Pyscho-Social History: No Pertinent History Male Reproductive Disorders: No Pertinent History - Past Surgical History Past Surgical History: Yes Neuro Surgical History: No Pertinent History Cardiac History: Cardiac Stent Respiratory Surgery: No Pertinent History GI Surgical History: Appendectomy Genitourinary Surgical Hx: No Pertinent History Musculskeletal Surgical Hx: No Pertinent History Male Surgical History: No Pertinent History Other Surgical History: 4 STENTS PLACED - Social History Smoking Status: Current every day smoker How long have you smoked: years Exposure to second hand smoke: Yes Alcohol: Daily Drug Use: none Significant Family History: no pertinent family hx - Physical Exam General Appearance: no apparent distress, alert Neurologic Exam: alert, oriented x 3, cooperative, normal mood/affect, nml cerebellar function, nml station & gait, sensation nml, No motor deficits Eye Exam: PERRL/EOMI, eyes nml inspection Ears, Nose, Throat Exam: normal ENT inspection, TMs normal, pharynx normal, moist mucous membranes Neck Exam: normal inspection, non-tender, supple, full range of motion Respiratory Exam: normal breath sounds, lungs clear, No respiratory distress Cardiovascular Exam: regular rate/rhythm, normal heart sounds, normal peripheral pulses Gastrointestinal/Abdomen Exam: soft, normal bowel sounds, tenderness, No mass Back Exam: normal inspection, normal range of motion, No CVA tenderness, No vertebral tenderness Extremity Exam: normal inspection, normal range of motion, pelvis stable Skin Exam: normal color, warm, dry, No rash Lymphatic Exam: No adenopathy Assessment/Plan (1) Abdominal pain Status: Acute Code(s): R10.9 - UNSPECIFIED ABDOMINAL PAIN (2) Bilateral renal cysts Status: Acute Code(s): N28.1 - CYST OF KIDNEY, ACQUIRED (3) Enteritis Status: Acute Code(s): K52.9 - NONINFECTIVE GASTROENTERITIS AND COLITIS, UNSPECIFIED
--- NOTE | 2022-06-06 14:23 | PCM.DS ---
Discharge Summary Date of Admission: 05/17/22 09:49 Date of Discharge: 05/21/22 Admitting Physician: MISTY MEDLEY Consults: Consults on Case 05/17/22 13:25 Consult Surgery ROUTINE 05/18/22 13:31 Consult Cardiology ROUTINE Primary Care Provider: ROSA GE Allergies Allergies No Known Drug Allergies Allergy (Verified 05/15/22 07:06) Hospital Summary - Hospital Course Hospital Course: Patient is a 72 yo gentleman with PMHx CAD, COPD,pancreatitis ,ETOH abuse without Hx cirrhosis presented to ER with severe mid/upper abdominal pain. WBC 22,000 on admission and normal within [address] abd/pelvis positive for thickening of small bowel. Stool was heme positive but Hgb remained stable. Cardiac work up was negative for acute PA.ECHO to be read by Dr Schneider. COPD requiring O2 during stay and on discharge. Abdominal pain resolved and patient tolerated regular diet by discharge. He is stable but elvis need assistance which will be his family. He does not want HH at this time. Patient agrees to further work up as outpatient - Vitals & Intake/Output Vital Signs: Vital Signs Temperature 99.1 F 05/21/22 11:00 Pulse Rate 128 H 05/21/22 11:00 Respiratory Rate 17 05/21/22 11:00 Blood Pressure 142/89 05/21/22 11:00 O2 Sat by Pulse Oximetry 95 05/21/22 11:00 - Lab Result Diagrams: 05/20/22 05:38 05/20/22 05:38 - Procedures and Test Procedures and Tests throughout Hospitalization: Therapy Orders & Screens 05/15/22 13:08 Oxygen NASAL CANNULA 4 lpm Comment: Diagnosis: Enteritis, abdominal pain 05/15/22 15:28 Respiratory Therapy Assessment DAILY Comment: Diagnosis: Enteritis, abdominal pain 05/17/22 17:12 EKG STAT Comment: Diagnosis: Enteritis, abdominal pain 05/19/22 10:26 Qualify for Home Oxygen TODAY Comment: Diagnosis: Enteritis, abdominal pain Discharge Exam General Appearance: no apparent distress Neurologic Exam: alert, oriented x 3, cooperative, normal mood/affect Neck Exam: normal inspection Respiratory Exam: diminished breath sounds (bases no wheeze or ronchi) Cardiovascular Exam: regular rate/rhythm Gastrointestinal/Abdomen Exam: soft (nontender) Extremity Exam: other (no pitting edema) Skin Exam: normal color, warm, dry Final Diagnosis/Problem List - Final Discharge Diagnosis/Problem (1) Regional enteritis of small bowel Status: Suspected Code(s): K50.00 - CROHN'S DISEASE OF SMALL INTESTINE WITHOUT COMPLICATIONS (2) Abdominal pain Status: Resolved Code(s): R10.9 - UNSPECIFIED ABDOMINAL PAIN (3) COPD (chronic obstructive pulmonary disease) with emphysema Status: Chronic Assessment & Plan: O2 required Code(s): J43.9 - EMPHYSEMA, UNSPECIFIED (4) Arteriosclerotic cardiovascular disease Status: Chronic Assessment & Plan: CAD follows with Dr Schneider,no acute problems this admit Code(s): I25.10 - ATHSCL HEART DISEASE OF [place] CORONARY ARTERY W/O ANG PCTRS (5) Heme positive stool Status: Acute Assessment & Plan: day os discharge collected stool reoported heme positive- will follow up as outpatient. Hgb has not dropped and is stable. - Discharge Disposition: Home, Self-Care Condition: Stable Prescriptions: New PANTOPRAZOLE 40 mg Tablet [Protonix 40MG Tablet] 40 mg PO QAM 90 Days #90 tab Continue Zolpidem Tartrate [Ambien] 10 mg PO QHS Ramipril 5 mg [Altace 5 MG] 2.5 mg PO DAILY Nebivolol HCl 5 MG [Bystolic 5 MG] 1 tab PO DAILY Metformin HCl 500 mg [Glucophage 500 MG] 1 tab PO BID Ezetimibe/Simvastatin [Ezetimibe-Simvastatin 10-20 mg] 1 each PO DAILY Gabapentin [Neurontin ] 300 mg PO TID Budesonide/Formoterol Fumarate [Budesonide-Formoterol 160-4.5] 1 inh IH DAILY Aspirin EC 81 mg [Ecotrin 81 mg] 81 mg PO DAILY Discontinued Meloxicam 15 mg [Meloxicam 15 MG] 15 mg PO DAILY Instructions: Quitting Smoking for Older Adults, Oxygen Therapy, Adult (DC), Abdominal Pain, Adult ED Additional Instructions: CALL [facility] WHEN YOU ARE HOME, THEY WILL DELIVER THE REST OF YOUR EQUIPMENT. . Follow up with: MISTY MEDLEY MD [ACTIVE STAFF] - 05/23/22 9:15 RACHEL Castro [ACTIVE STAFF] - 05/24/22 3:20 pm (at [facility] )
== END 2022-05-21 14:20 | disposition home or self-care (01) | DRG 387 ==
LOC: ED 06:49 → MED SURG 12:33 → OBSVTOIN 05-17 09:49
PROVIDERS: ADMIT Family Medicine; ATTEND Family Medicine
DX: K50.00 Crohn's disease of small intestine without complications (principal); R10.9 Unspecified abdominal pain; J44.9 Chronic obstructive pulmonary disease, unspecified; E86.0 Dehydration; I10 Essential (primary) hypertension; F10.90 Alcohol use, unspecified, uncomplicated; E78.5 Hyperlipidemia, unspecified; E11.9 Type 2 diabetes mellitus without complications; I25.10 Atherosclerotic heart disease of native coronary artery without angina pectoris; Z72.0 Tobacco use; Z79.899 Other long term (current) drug therapy; Z20.828 Contact with and (suspected) exposure to other viral communicable diseases
CPT/HCPCS: 0241U; 36000; 36415; 71045; 71260; 74176; 74177; 80053; 82274; 82607; 82728; 82746; 82947; 83036; 83540; 83550; 83690; 83735; 83880; 84484; 85007; 85025; 85027; 85379; 93005; 93268; 93306; 94640; 94762; 96374; 96375; 96376; 99285; J0456; J0696; J1940; J1956; J2060; J2270; J2405; J2930; Q3014; A9270-GY; G0328; G0378

== ENCOUNTER 2024-01-15 12:58 | Observation (INO) | payer MEDICARE, OTHER ==
[2024-01-15] MEDS: DUONEB 0.5-3 MG/3 ml Neb IH ONE (13:17)
[2024-01-15] MEDS ORDERED: Sterile H2O 10 ml IJ ONE (13:23)
[2024-01-15] MEDS ORDERED: solu-MEDROL ONE (13:23)
[2024-01-15] MEDS: solu-MEDROL 125 MG, Sterile H2O 10 ml 2 ML IV ONE (13:24)
[2024-01-15] MEDS ORDERED: DUONEB 0.5-3 MG/3 ml Neb IH ONE (13:24)
--- NOTE | 2024-01-15 13:33 | XRAY ---
Indication: Short of breath. Comparison: October 10, 2023 Portable chest now rotated again demonstrating COPD. New right mid to lower lung consolidating/nonconsolidating airspace disease. Heart not enlarged again with small hiatal hernia. Bony thorax intact again with osteopenia and degenerative changes.
[2024-01-15] MEDS ORDERED: ROCEPHIN 2 GM/100 ML NACL 2 GM/100 ML IVPB IV ONE (13:55)
[2024-01-15 13:57] LABS: Absolute Neutrophil Ct (ANC) 16.37 x10^3/uL (1.78-5.38); BASOPHIL % 0.5 % (0.2-1.2); Eosinophil % 0.2 % (0.8-7.0); Eosinophil (Absolute #) 0.04 x10^3/uL (0.04-0.54); Hematocrit 33.5 % (40.1-51.0); Hemoglobin 10.6 g/dL (13.7-17.5); IMMATURE GRAN # 0.08 x10^3u/L (0.001-0.031); IMMATURE GRAN % 0.4 % (0.001-0.429); Lymphocyte (Absolute #) 0.82 x10^3/uL (1.32-3.57); Lymphocytes % 4.4 % (21.8-53.1); Mean Corpuscular Hemoglobin 32.9 pg (25.7-32.2); Mean Corpuscular Hgb Concent. 31.6 g/dL (32.3-36.5); Mean Platelet Volume 10.9 fL (9.4-12.4); Monocytes % 5.9 % (5.3-12.2); Neutrophil % 88.6 % (34.0-67.9); Platelet Count 225 x10^3/uL (163-337); Red Blood Count 3.22 x10^6/uL (4.63-6.08); Red Cell Distribution Width 15.8 % (11.6-14.4); White Blood Count 18.5 x10^3/uL (4.23-9.07)
[2024-01-15] MEDS: ROCEPHIN 2 GM/100 ML NACL 2 GM/100 ML IVPB IV ONE (13:57)
--- NOTE | 2024-01-15 14:07 | ERPHSYRPT ---
- History of Present Illness Time Seen by Provider: 01/15/24 13:01 Source: patient, EMS Exam Limitations: no limitations Patient Subjective Stated Complaint: Pt states "I have been short of breath, weak and very cold." Triage Nursing Assessment: PT presented alert and oriented X 3, skin pwd. Pt able to speak in seven to 8 word sentences. PT slightly tachypneic, resting comfortably on the bed. Physician History: 73-year-old male with multiple medical problems including coronary artery disease status post stenting, COPD with chronic respiratory failure on 3 L oxygen, tobacco abuse, hypertension presented in the ER with increasing shortness of breath for the last few days with progressive worsening since last night. Patient reports cough productive of clear to yellow sputum and feeling chills. Denies any fever. Patient reports generalized chest tightness and soreness because of repeated coughing. Patient oxygen saturation is usually in upper 80s and lower 90s at his baseline. Patient is tachycardic on presentation with sats in mid 90s on 3 L. Allergies/Adverse Reactions: No Known Drug Allergies Allergy (Verified 01/15/24 16:49) Home Medications: Zolpidem Tartrate [Ambien] 10 mg PO QHS 05/03/13 [History] Ramipril 5 mg [Altace 5 MG] 2.5 mg PO DAILY 06/24/14 [History] Metformin HCl 500 mg [Glucophage 500 MG] 500 mg PO BID 08/14/19 [History] Ezetimibe/Simvastatin [Ezetimibe-Simvastatin 10-20 mg] 1 each PO DAILY 03/28/21 [History] Aspirin EC 81 mg [Ecotrin 81 mg] 162 mg PO DAILY 05/15/22 [History] Gabapentin [Neurontin ] 300 mg PO TID 05/15/22 [History] Albuterol Common Canister [Ventolin Common Canister] 1 puff IH Q4HPRN PRN 01/15/24 [History] Albuterol/Ipratropium 3ml Neb* [DUONEB 0.5-3 MG/3 ml Neb] 1 neb IH Q4HPRN PRN 01/15/24 [History] Hydrocodone/Acetaminophen [Hydrocodone-Acetamin 10-325 mg] 1 each PO Q4HPRN PRN 01/15/24 [History] Morphine Sulfate [Morphine Sulfate ER] 15 mg PO BID 01/15/24 [History] Potassium Chloride [Klor-Con 10] 10 meq PO DAILY 01/15/24 [History] Hx Tetanus, Diphtheria Vaccination/Date Given: No Hx Influenza Vaccination/Date Given: Yes Hx Pneumococcal Vaccination/Date Given: Yes Immunizations Up to Date: No Travel Risk - International Travel Have you traveled outside of the country in past 3 weeks: No - Emerging Infectious Disease Are you exhibiting symptoms associated with any current EIDs: Yes Symptoms: Shortness of Breath - Review of Systems Constitutional: Chills, Fatigue Eyes: No Symptoms Ears, Nose, & Throat: No Symptoms Respiratory: Cough, Dyspnea, Dyspnea on Exertion (MAJOR), Wheezing Cardiac: No Symptoms Abdominal/Gastrointestinal: No Symptoms Genitourinary Symptoms: No Symptoms Musculoskeletal: Arthralgias Skin: No Symptoms Neurological: No Symptoms Endocrine: No Symptoms Hematologic/Lymphatic: No Symptoms - Past Medical History Pertinent Past Medical History: Yes Neurological History: No Pertinent History ENT History: No Pertinent History Cardiac History: Coronary Artery Disease, Hypertension, Myocardial Infarction (PR) Respiratory History: Asthma, COPD Endocrine Medical History: No Pertinent History Musculoskeletal History: No Pertinent History GI Medical History: No Pertinent History, Pancreatitis History: No Pertinent History Psycho-Social History: No Pertinent History Male Reproductive Disorders: No Pertinent History - Past Surgical History Past Surgical History: Yes Neuro Surgical History: No Pertinent History Cardiac: Cardiac Stent Respiratory: No Pertinent History Gastrointestinal: Appendectomy Genitourinary: No Pertinent History Musculoskeletal: No Pertinent History Male Surgical History: No Pertinent History Other Surgical History: 4 STENTS PLACED Significant Family History: no pertinent family hx - Social History Smoking Status: Current every day smoker How long have you smoked: years Exposure to second hand smoke: Yes Drug Use: marijuana Patient Lives Alone: No - Social Determinants of Health Will the patient participate in the screening: Declined to provide - Nursing Vital Signs Nursing Vital Signs: Initial Vital Signs Pulse Rate 129 H 01/15/24 13:06 Respiratory Rate 28 H 01/15/24 13:06 Blood Pressure 109/70 01/15/24 13:06 Pain Scale Pain Intensity 0 - Physical Exam General Appearance: no apparent distress, alert Eye Exam: PERRL/EOMI Ears, Nose, Throat Exam: hearing grossly normal, normal pharynx Neck Exam: normal inspection, full range of motion Respiratory Exam: diminished breath sounds, crackles/rales, rhonchi, wheezing Cardiovascular/Chest Exam: normal heart sounds, tachycardia Abdominal/Gastrointestinal Exam: soft, normal bowel sounds, No tenderness Extremity Exam: non-tender, normal range of motion Neurologic Exam: alert, oriented x 3, cooperative Skin Exam: normal color SpO2 Interpretation: O2 applied SpO2: 85 O2 Delivery: Nasal Cannula - Course EKG Interpreted by Me: RATE ([id number]), Sinus Tach, NORMAL AXIS, Right Bundle Branch Block, Q-wave, Non-specific ST Changes Ordered Tests: Active Orders 24 hr Category Date Time Status TROPONIN Q4H Lab 01/15/24 21:20 Completed Medication Summary Discontinued Medications Generic Name Dose Route Start Last Admin Trade Name Freq PRN Reason Stop Dose Admin Acetaminophen 650 mg 01/15/24 17:11 Acetaminophen 325 Mg Tablet PO 02/14/24 17:10 Q6H PRN PRN PAIN AND/OR FEVER Hydrocodone Bitart/Acetaminophen 1 tablet 01/15/24 17:11 Hydrocodone/Acetamin 10-325 Mg Tablet PO 01/20/24 17:10 Q4HPRN PRN PAIN Albuterol/Ipratropium 3 ml 01/15/24 13:09 01/15/24 13:17 Ipratropium/Albuterol Sulfate 3 Ml Ampul.[facility] 01/15/24 13:10 3 ml STAT ONE Administration Albuterol/Ipratropium Confirm 01/15/24 13:24 Ipratropium/Albuterol Sulfate 3 Ml Ampul.Neb Administered 01/15/24 13:25 Dose 3 ml IH .STK-MED ONE Albuterol/Ipratropium 3 ml 01/15/24 19:00 01/16/24 10:47 Ipratropium/Albuterol Sulfate 3 Ml Ampul.Neb 02/14/24 18:59 3 ml QIDRT MIKAEL Administration Albuterol/Ipratropium 3 ml 01/15/24 17:11 Ipratropium/Albuterol Sulfate 3 Ml Ampul.Neb 02/14/24 17:10 Q4HPRN PRN SHORTNESS OF BREATH/WHEEZING Aspirin 162 mg 01/16/24 10:00 01/16/24 09:38 Aspirin 81 Mg Tablet.Ec PO 02/15/24 09:59 162 mg DAILY MIKAEL Administration Methylprednisolone Sodium 0 mg 01/15/24 13:19 01/15/24 13:24 Succinate 125 mg/ Sterile IV 01/15/24 13:20 125 mg Water 2 ml STAT ONE Administration Methylprednisolone Sodium 0 mg 01/15/24 22:00 01/16/24 09:39 Succinate 40 mg/ Sterile Water IV 02/14/24 21:59 40 mg 1 ml Q12HT MIKAEL Administration Ezetimibe 10 mg 01/16/24 10:00 01/16/24 09:39 Ezetimibe 10 Mg Tab PO 02/15/24 09:59 10 mg DAILY MIKAEL Administration Enoxaparin Sodium 40 mg 01/16/24 10:00 01/16/24 09:39 Enoxaparin Sodium 40 Mg/0.4 Ml Syringe SQ 02/15/24 09:59 40 mg DAILY MIKAEL Administration Gabapentin 300 mg 01/15/24 22:00 01/16/24 09:39 Gabapentin 300 Mg Capsule PO 02/14/24 21:59 300 mg TID MIKAEL Administration Ceftriaxone Sodium 2 gm in 100 mls @ 200 mls/hr 01/15/24 13:47 01/15/24 14:58 Rocephin 2 Gm/100 Ml Nacl IV 01/15/24 14:16 Infused STAT ONE Infusion Azithromycin 500 mg in 250 mls @ 250 mls/hr 01/15/24 13:47 01/15/24 15:26 Zithromax 500 Mg/ 250 Ml Nacl Premix IV 01/15/24 14:46 Infused STAT STA Infusion Ceftriaxone Sodium Confirm 01/15/24 13:55 Rocephin 2 Gm/100 Ml Nacl Administered 01/15/24 13:56 Dose 2 gm in 100 mls @ ud IV .STK-MED ONE Azithromycin Confirm 01/15/24 14:21 Zithromax 500 Mg/ 250 Ml Nacl Premix Administered 01/15/24 14:22 Dose 500 mg in 250 mls @ ud IV .STK-MED ONE Sodium Chloride 500 mls @ 500 mls/hr 01/15/24 14:31 01/15/24 14:58 Sodium Chloride 0.9% 500 Ml IV 01/15/24 15:30 Not Given .Q1H ONE Magnesium Sulfate/Dextrose 100 mls @ 100 mls/hr 01/15/24 15:45 01/15/24 16:51 Magnesium 1 Gm / 100 Ml D5w IV 01/15/24 17:44 100 mls/hr Q1H MIKAEL Administration Magnesium Sulfate/Water Confirm 01/15/24 15:52 Magnesium Sulf 2 G/50 Ml Bag Administered 01/15/24 15:53 Dose 2 gm in 50 mls @ ud IV .STK-MED ONE Magnesium Sulfate/Dextrose Confirm 01/15/24 16:12 Magnesium 1 Gm / 100 Ml D5w Administered 01/15/24 16:13 Dose 200 mls @ ud IV .STK-MED ONE Azithromycin / Sodium Chloride 250 mls @ 250 mls/hr 01/16/24 10:00 IV 02/15/24 09:59 Q24H10 MIKAEL Ceftriaxone Sodium 1 gm in 100 mls @ 200 mls/hr 01/16/24 10:00 01/16/24 09:40 Rocephin 1 Gm / 100 Ml Nacl IV 02/15/24 09:59 200 mls/hr DAILY MIKAEL Administration Azithromycin 500 mg in 250 mls @ 250 mls/hr 01/16/24 10:00 01/16/24 09:40 Zithromax 500 Mg/ 250 Ml Nacl Premix IV 02/15/24 09:59 250 mls/hr DAILY MIKAEL Administration Insulin Human Lispro 0 unit 01/15/24 17:15 Insulin Lispro 1 Unit SQ 02/14/24 17:14 UD PRN HYPERGLYCEMIA Lisinopril 10 mg 01/16/24 10:00 01/16/24 09:57 Lisinopril 10 Mg Tablet PO 02/15/24 09:59 Not Given DAILY MIKAEL Methylprednisolone Sodium Succinate Confirm 01/15/24 13:23 Methylprednis Sod Succ 125 Mg/2 Ml Vial Administered 01/15/24 13:24 Dose 125 mg .ROUTE .STK-MED ONE Morphine Sulfate 15 mg 01/15/24 22:00 01/16/24 09:40 Morphine Sulfate 15 Mg Tablet.Sa PO 01/20/24 21:59 15 mg BID MIKAEL Administration Non-Formulary Medication 1 each 01/16/24 10:00 Ezetimibe/Simvastatin [Ezetimibe-Simvastatin 10-20 Mg] PO 02/15/24 09:59 DAILY MIKAEL Pantoprazole Sodium 20 mg 01/16/24 10:00 01/16/24 09:39 Pantoprazole 20 Mg Tab PO 02/15/24 09:59 20 mg DAILY MIKAEL Administration Potassium Chloride 10 meq 01/16/24 10:00 01/16/24 09:39 Potassium Chloride Tab 10 Meq Tab PO 02/15/24 09:59 10 meq DAILY MIKAEL Administration Fluticasone/Salmeterol 2 puff 01/15/24 19:00 01/16/24 07:18 Fluticasone/Salmeterol 60 Puff Aer.W.Adap IH 02/14/24 18:59 2 puff BIDRT MIKAEL Administration Simvastatin 20 mg 01/16/24 10:00 01/16/24 09:39 Simvastatin 20 Mg Tablet PO 02/15/24 09:59 20 mg DAILY MIKAEL Administration Sterile Water Confirm 01/15/24 13:23 Water For Injection,Sterile 10 Ml Vial Administered 01/15/24 13:24 Dose 10 ml IJ .STK-MED ONE Zolpidem Tartrate 10 mg 01/15/24 22:00 01/15/24 22:01 Zolpidem Tartrate 10 Mg Tablet PO 02/14/24 21:59 10 mg QHS MIKAEL Administration Lab/Rad Data: Laboratory Result Diagrams 01/15/24 13:09 01/15/24 14:14 Laboratory Results 01/15/24 01/15/24 01/15/24 Range/Units 14:14 13:45 13:45 WBC (4.23-9.07) x10^3/uL RBC (4.63-6.08) x10^6/uL Hgb (13.7-17.5) g/dL Hct (40.1-51.0) % MCV (79.0-92.2) fL MCH (25.7-32.2) pg MCHC (32.3-36.5) g/dL RDW (11.6-14.4) % Plt Count (163-337) x10^3/uL MPV (9.4-12.4) fL Gran % (34.0-67.9) % Immature Gran % (Auto) (0.001-0.429) % Nucleat RBC Rel Count (0.00-0.2) % Eos # (Auto) (0.04-0.54) x10^3/uL Immature Gran # (Auto) (0.001-0.031) x10^3u/L Absolute Lymphs (auto) (1.32-3.57) x10^3/uL Absolute Monos (auto) (0.30-0.82) x10^3/uL Absolute Nucleated RBC (0.00-0.012) x10^3u/L Lymphocytes % (21.8-53.1) % Monocytes % (5.3-12.2) % Eosinophils % (0.8-7.0) % Basophils % (0.2-1.2) % Absolute Granulocytes (1.78-5.38) x10^3/uL Basophils # (0.01-0.08) x10^3/uL Sodium 134 L (135-145) mmol/L Potassium 4.3 (3.5-5.1) mmol/L Chloride 102 (98-107) mmol/L Carbon Dioxide 22 (22-30) mmol/L Anion Gap 14.1 (5-15) MEQ/L BUN 15 (9-20) mg/dL Creatinine 0.59 L (0.66-1.25) mg/dL Estimated GFR 101.2 ML/MIN Glucose 88 (74-106) mg/dL Lactic Acid (0.4-2.0) Calcium 8.8 (8.4-10.2) mg/dL Magnesium 1.4 L (1.6-2.3) mg/dL Total Bilirubin 0.60 (0.2-1.3) mg/dL AST 19 (17-59) U/L ALT 15 (0-50) U/L Alkaline Phosphatase 79 (38-126) U/L Troponin I < 0.012 (0.000-0.033) ng/mL NT-Pro-B Natriuret Pep 597 (<300) pg/mL Serum Total Protein 6.4 (6.3-8.2) g/dL Albumin 3.0 L (3.5-5.0) g/dL Procalcitonin 0.073 (0.030-0.080) ng/mL Influenza Type A Ag (NEGATIVE) Influenza Type B Ag (NEGATIVE) RSV (PCR) (NEGATIVE) SARS-CoV-2 (PCR) (NEGATIVE) 01/15/24 01/15/24 01/15/24 Range/Units 13:30 13:09 13:09 WBC 18.5 H (4.23-9.07) x10^3/uL RBC 3.22 L (4.63-6.08) x10^6/uL Hgb 10.6 L (13.7-17.5) g/dL Hct 33.5 L (40.1-51.0) % MCV 104.0 H (79.0-92.2) fL MCH 32.9 H (25.7-32.2) pg MCHC 31.6 L (32.3-36.5) g/dL RDW 15.8 H (11.6-14.4) % Plt Count 225 (163-337) x10^3/uL MPV 10.9 (9.4-12.4) fL Gran % 88.6 H (34.0-67.9) % Immature Gran % (Auto) 0.4 (0.001-0.429) % Nucleat RBC Rel Count 0.0 (0.00-0.2) % Eos # (Auto) 0.04 (0.04-0.54) x10^3/uL Immature Gran # (Auto) 0.08 H (0.001-0.031) x10^3u/L Absolute Lymphs (auto) 0.82 L (1.32-3.57) x10^3/uL Absolute Monos (auto) 1.10 H (0.30-0.82) x10^3/uL Absolute Nucleated RBC 0.00 (0.00-0.012) x10^3u/L Lymphocytes % 4.4 L (21.8-53.1) % Monocytes % 5.9 (5.3-12.2) % Eosinophils % 0.2 L (0.8-7.0) % Basophils % 0.5 (0.2-1.2) % Absolute Granulocytes 16.37 H (1.78-5.38) x10^3/uL Basophils # 0.10 H (0.01-0.08) x10^3/uL Sodium (135-145) mmol/L Potassium (3.5-5.1) mmol/L Chloride (98-107) mmol/L Carbon Dioxide (22-30) mmol/L Anion Gap (5-15) MEQ/L BUN (9-20) mg/dL Creatinine (0.66-1.25) mg/dL Estimated GFR ML/MIN Glucose (74-106) mg/dL Lactic Acid 2.3 H (0.4-2.0) Calcium (8.4-10.2) mg/dL Magnesium (1.6-2.3) mg/dL Total Bilirubin (0.2-1.3) mg/dL AST (17-59) U/L ALT (0-50) U/L Alkaline Phosphatase (38-126) U/L Troponin I (0.000-0.033) ng/mL NT-Pro-B Natriuret Pep (<300) pg/mL Serum Total Protein (6.3-8.2) g/dL Albumin (3.5-5.0) g/dL Procalcitonin (0.030-0.080) ng/mL Influenza Type A Ag NEGATIVE (NEGATIVE) Influenza Type B Ag NEGATIVE (NEGATIVE) RSV (PCR) NEGATIVE (NEGATIVE) SARS-CoV-2 (PCR) NEGATIVE (NEGATIVE) - Progress Progress: improved, re-examined Air Movement: fair Progress Note: 01/15/24 15:45 73-year-old smoker with respiratory failure secondary to COPD on 3 L oxygen is evaluated in the ER for worsening shortness of breath. Patient has bilateral decreased breath sounds, given DuoNeb and Solu-Medrol, placed on Venturi mask, has some improvement in work of breathing. Patient was tachycardic and after fluid bolus it improved to low 100s. Workup showed white count of 18, chemistries with a lactate of 2.3 and magnesium of 1.6. Chest x-ray showing right-sided consolidation. Given Rocephin's along with Zithromax and magnesium's IV. Patient was initially placed on 6 L oxygen and gradually weaned with Venturi mask to 4 L and satting in the low 90s. EKG did not show any ST elevations and negative initial troponins. I believe patient has a combination of COPD exacerbation and pneumonia. Discussed with Dr. Loo and patient is being admitted. Discussed the results of workup with patient and plan of ad mission which she understands and agrees. Blood Culture(s) Obtained: Yes Antibiotics given: Yes Discussed with DrJonathan: Cam Will see patient in: hospital (observation) Counseled pt/family regarding: lab results, diagnosis, need for follow-up, rad results, smoking cessation Medical Desision Making - Discussion of managment Care discussed with:: hospitalist (Dr. Loo) Reviewed:: Test results Agreed on:: Treatment plan, place in obs Will see patient: in hospital - Diagnostic Testing Diagnostic test were ordered, analyzed, and reviewed by me: Yes Radiological Interpretation: Reviewed by me - Risk of complications The pt has a high risk of morbidity or mortality based on: Drug therapy requiring intensive monitoring for toxicity, Decision regarding hospitilization or escalation of hosp level of care - Departure Departure Disposition: Observation Clinical Impression: COPD exacerbation, Pneumonia Condition: Stable Critical Care Time: No
[2024-01-15] MEDS ORDERED: Zithromax 500 MG/ 250 ML NaCl Premix 500 MG/250 ML IVPB IV ONE (14:21)
[2024-01-15] MEDS: Zithromax 500 MG/ 250 ML NaCl Premix 500 MG/250 ML IVPB IV STA (14:22)
[2024-01-15 14:28] LABS: MAGNESIUM 1.4 mg/dL (1.6-2.3); PROCALCITONIN 0.073 ng/mL (0.030-0.080)
[2024-01-15 14:33] LABS: INFLUENZA A NEGATIVE (NEGATIVE); INFLUENZA B NEGATIVE (NEGATIVE); RESPIRATORY SYNCTIAL VIRUS NEGATIVE (NEGATIVE); SARS-CoV-2 Xpert Express NEGATIVE (NEGATIVE)
[2024-01-15 14:40] LABS: ANION GAP 14.1 MEQ/L (5-15); BILIRUBIN,TOTAL 0.6 mg/dL (0.2-1.3); Calcium 8.8 mg/dL (8.4-10.2); Creatinine 1 0.59 mg/dL (0.66-1.25); EST GLOMERULAR FILTRATION RATE 101.2 ML/MIN; Potassium 4.3 mmol/L (3.5-5.1); Total Protein 6.4 g/dL (6.3-8.2)
[2024-01-15] MEDS: Sodium Chloride 0.9% 500 ML 500 ML IV ONE (14:58)
[2024-01-15] MEDS ORDERED: MAGNESIUM SULF 2 G/50 ML BAG 0 GM/0 ML PIGGYBACK IV ONE (15:52)
[2024-01-15] MEDS ORDERED: Magnesium 1 Gm / 100 Ml D5W*** 200 ML IV ONE (16:12)
[2024-01-15] MEDS: Magnesium 1 Gm / 100 Ml D5W*** 100 ML IV SCH (16:13)
--- NOTE | 2024-01-15 16:40 | PCM.HP ---
History of Present Illness - Chief Complaint Chief Complaint: sepsis, pneumonia Date: 01/15/24 History of Present Illness: is a 73 year old male with PMHX of CAD, HTN, [place], asthma, COPD on baseline O2 of 3L NC, pancreatitis, daily smoker (2 ppd), and THC use. Pt presented to the ER today with increasing shortness of breath for the last few days with worsening since last night. Patient reports cough productive of clear to yellow sputum and feeling chills. Denies any fever. Patient reports generalized chest tightness and soreness because of repeated coughing. Patient oxygen saturation is usually in upper 80s and lower 90s at his baseline. Patient was tachycardic on presentation with sats in mid 90s on 3 L. Pt triggered sepsis in the ER. Lactic acid 2.3, HR, RR and WBC elevated. + RLL and MLL pneumonia seen on CXR. 500ml fluid bolus gave in the ER. Mg+ 1.4 and replaced in ER. WBC 18.5 and increased oxygen demand. IV antibiotics, steroids, and duonebs started in ER will continue. COVID/FLU/ RSV negative. Pt reports he has lost 100lbs over the past [address] with PE protocol ordered. He denies CP, SOB, abd. pain, N/V/D. - Review of Systems Constitutional: Weakness, Weight Loss, No Fever, No Chills Eyes: No Symptoms Ears, Nose, & Throat: No Symptoms Respiratory: Short Of Breath, No Cough Cardiac: No Chest Pain, No Edema, No Syncope Abdominal/Gastrointestinal: No Abdominal Pain, No Nausea, No Vomiting, No Diarrhea Genitourinary Symptoms: No Dysuria Musculoskeletal: No Back Pain, No Neck Pain Skin: No Rash Neurological: No Dizziness, No Focal Weakness, No Sensory Changes Psychological: No Symptoms Endocrine: No Symptoms Hematologic/Lymphatic: No Symptoms Immunological/Allergic: No Symptoms Medications & Allergies Home Medications: Home Medication List Zolpidem Tartrate [Ambien] 10 mg PO QHS 05/03/13 [History Confirmed 05/15/22] Ramipril 5 mg [Altace 5 MG] 2.5 mg PO DAILY 06/24/14 [History Confirmed 05/15/22] Metformin HCl 500 mg [Glucophage 500 MG] 1 tab PO BID 08/14/19 [History Confirmed 05/15/22] Ezetimibe/Simvastatin [Ezetimibe-Simvastatin 10-20 mg] 1 each PO DAILY 03/28/21 [History Confirmed 05/15/22] Aspirin EC 81 mg [Ecotrin 81 mg] 81 mg PO DAILY 05/15/22 [History Confirmed 05/15/22] Gabapentin [Neurontin ] 300 mg PO TID 05/15/22 [History Confirmed 05/15/22] Albuterol Common Canister [Ventolin Common Canister] 1 puff IH Q4HPRN PRN 01/15/24 [History Confirmed 01/15/24] Albuterol/Ipratropium 3ml Neb* [DUONEB 0.5-3 MG/3 ml Neb] 1 neb IH Q4HPRN PRN 01/15/24 [History Confirmed 01/15/24] Hydrocodone/Acetaminophen [Hydrocodone-Acetamin 10-325 mg] 1 each PO Q4HPRN PRN 01/15/24 [History Confirmed 01/15/24] Morphine Sulfate [Morphine Sulfate ER] 15 mg PO BID 01/15/24 [History Confirmed 01/15/24] Potassium Chloride [Klor-Con 10] 10 meq PO DAILY 01/15/24 [History Confirmed 01/15/24] Allergies/Adverse Reactions: Allergies Allergy/AdvReac Type Severity Reaction Status Date / Time No Known Drug Allergies Allergy Verified 01/15/24 16:49 - Past Medical History Past Medical History: Yes Neurological History: No Pertinent History ENT History: No Pertinent History Cardiac History: Coronary Artery Disease, Hypertension, Myocardial Infarction ([place]) Respiratory History: Asthma, COPD Endocrine Medical History: No Pertinent History Musculoskelatal History: No Pertinent History GI Medical History: No Pertinent History, Pancreatitis History: No Pertinent History Pyscho-Social History: No Pertinent History Male Reproductive Disorders: No Pertinent History - Past Surgical History Past Surgical History: Yes Neuro Surgical History: No Pertinent History Cardiac History: Cardiac Stent Respiratory Surgery: No Pertinent History GI Surgical History: Appendectomy Genitourinary Surgical Hx: No Pertinent History Musculskeletal Surgical Hx: No Pertinent History Male Surgical History: No Pertinent History Other Surgical History: 4 STENTS PLACED Significant Family History: no pertinent family hx - Social History Smoking Status: Current every day smoker How long have you smoked: years Exposure to second hand smoke: Yes Alcohol: Occasionally Drug Use: marijuana - Social Determinants of Health Will the patient participate in the screening: Declined to provide - Physical Exam Vital Signs: Vital Signs - 24 hr Temp Pulse Resp BP BP Pulse Ox 01/15/24 16:15 106 H 21 105/64 01/15/24 16:07 85 L 01/15/24 16:00 103 H 22 100/62 01/15/24 15:45 105 H 24 96/61 01/15/24 15:30 107 H 24 95/64 01/15/24 15:15 109 H 20 104/62 01/15/24 15:00 112 H 26 H 95/63 98 01/15/24 14:45 114 H 26 H 106/65 01/15/24 14:30 115 H 26 H 112/73 01/15/24 14:15 116 H 28 H 109/70 95 01/15/24 14:01 117 H 29 H 85 L 01/15/24 14:00 115 H 26 H 122/80 98 01/15/24 13:45 117 H 29 H 111/79 97 01/15/24 13:30 118 H 26 H 112/76 91 L 01/15/24 13:16 98 01/15/24 13:15 122 H 30 H 108/82 73 L 01/15/24 13:07 98.6 F 125 H 22 109/70 98 01/15/24 13:06 129 H 28 H 109/70 General Appearance: no apparent distress, alert Neurologic Exam: alert, oriented x 3, cooperative, normal mood/affect, nml cerebellar function, nml station & gait, sensation nml, No motor deficits Eye Exam: PERRL/EOMI, eyes nml inspection Ears, Nose, Throat Exam: normal ENT inspection, TMs normal, pharynx normal, moist mucous membranes Neck Exam: normal inspection, non-tender, supple, full range of motion Respiratory Exam: diminished breath sounds (BLLL), No respiratory distress Cardiovascular Exam: regular rate/rhythm, normal heart sounds, normal peripheral pulses Gastrointestinal/Abdomen Exam: soft, normal bowel sounds, No tenderness, No mass Back Exam: normal inspection, normal range of motion, No CVA tenderness, No vertebral tenderness Extremity Exam: normal inspection, normal range of motion, pelvis stable Skin Exam: normal color, warm, dry, No rash Lymphatic Exam: No adenopathy Results - Labs Lab/Micro Results: Lab Results-Last 24 Hours 01/15/24 01/15/24 01/15/24 Range/Units 13:09 13:09 13:30 WBC 18.5 H (4.23-9.07) x10^3/uL RBC 3.22 L (4.63-6.08) x10^6/uL Hgb 10.6 L (13.7-17.5) g/dL Hct 33.5 L (40.1-51.0) % MCV 104.0 H (79.0-92.2) fL MCH 32.9 H (25.7-32.2) pg MCHC 31.6 L (32.3-36.5) g/dL RDW 15.8 H (11.6-14.4) % Plt Count 225 (163-337) x10^3/uL MPV 10.9 (9.4-12.4) fL Gran % 88.6 H (34.0-67.9) % Immature Gran % (Auto) 0.4 (0.001-0.429) % Nucleat RBC Rel Count 0.0 (0.00-0.2) % Eos # (Auto) 0.04 (0.04-0.54) x10^3/uL Immature Gran # (Auto) 0.08 H (0.001-0.031) x10^3u/L Absolute Lymphs (auto) 0.82 L (1.32-3.57) x10^3/uL Absolute Monos (auto) 1.10 H (0.30-0.82) x10^3/uL Absolute Nucleated RBC 0.00 (0.00-0.012) x10^3u/L Lymphocytes % 4.4 L (21.8-53.1) % Monocytes % 5.9 (5.3-12.2) % Eosinophils % 0.2 L (0.8-7.0) % Basophils % 0.5 (0.2-1.2) % Absolute Granulocytes 16.37 H (1.78-5.38) x10^3/uL Basophils # 0.10 H (0.01-0.08) x10^3/uL Sodium (135-145) mmol/L Potassium (3.5-5.1) mmol/L Chloride (98-107) mmol/L Carbon Dioxide (22-30) mmol/L Anion Gap (5-15) MEQ/L BUN (9-20) mg/dL Creatinine (0.66-1.25) mg/dL Estimated GFR ML/MIN Glucose (74-106) mg/dL Lactic Acid 2.3 H (0.4-2.0) Calcium (8.4-10.2) mg/dL Magnesium (1.6-2.3) mg/dL Total Bilirubin (0.2-1.3) mg/dL AST (17-59) U/L ALT (0-50) U/L Alkaline Phosphatase (38-126) U/L Troponin I (0.000-0.033) ng/mL NT-Pro-B Natriuret Pep (<300) pg/mL Serum Total Protein (6.3-8.2) g/dL Albumin (3.5-5.0) g/dL Procalcitonin (0.030-0.080) ng/mL Influenza Type A Ag NEGATIVE (NEGATIVE) Influenza Type B Ag NEGATIVE (NEGATIVE) RSV (PCR) NEGATIVE (NEGATIVE) SARS-CoV-2 (PCR) NEGATIVE (NEGATIVE) 01/15/24 01/15/24 01/15/24 Range/Units 13:45 13:45 14:14 WBC (4.23-9.07) x10^3/uL RBC (4.63-6.08) x10^6/uL Hgb (13.7-17.5) g/dL Hct (40.1-51.0) % MCV (79.0-92.2) fL MCH (25.7-32.2) pg MCHC (32.3-36.5) g/dL RDW (11.6-14.4) % Plt Count (163-337) x10^3/uL MPV (9.4-12.4) fL Gran % (34.0-67.9) % Immature Gran % (Auto) (0.001-0.429) % Nucleat RBC Rel Count (0.00-0.2) % Eos # (Auto) (0.04-0.54) x10^3/uL Immature Gran # (Auto) (0.001-0.031) x10^3u/L Absolute Lymphs (auto) (1.32-3.57) x10^3/uL Absolute Monos (auto) (0.30-0.82) x10^3/uL Absolute Nucleated RBC (0.00-0.012) x10^3u/L Lymphocytes % (21.8-53.1) % Monocytes % (5.3-12.2) % Eosinophils % (0.8-7.0) % Basophils % (0.2-1.2) % Absolute Granulocytes (1.78-5.38) x10^3/uL Basophils # (0.01-0.08) x10^3/uL Sodium 134 L (135-145) mmol/L Potassium 4.3 (3.5-5.1) mmol/L Chloride 102 (98-107) mmol/L Carbon Dioxide 22 (22-30) mmol/L Anion Gap 14.1 (5-15) MEQ/L BUN 15 (9-20) mg/dL Creatinine 0.59 L (0.66-1.25) mg/dL Estimated GFR 101.2 ML/MIN Glucose 88 (74-106) mg/dL Lactic Acid (0.4-2.0) Calcium 8.8 (8.4-10.2) mg/dL Magnesium 1.4 L (1.6-2.3) mg/dL Total Bilirubin 0.60 (0.2-1.3) mg/dL AST 19 (17-59) U/L ALT 15 (0-50) U/L Alkaline Phosphatase 79 (38-126) U/L Troponin I < 0.012 (0.000-0.033) ng/mL NT-Pro-B Natriuret Pep 597 (<300) pg/mL Serum Total Protein 6.4 (6.3-8.2) g/dL Albumin 3.0 L (3.5-5.0) g/dL Procalcitonin 0.073 (0.030-0.080) ng/mL Influenza Type A Ag (NEGATIVE) Influenza Type B Ag (NEGATIVE) RSV (PCR) (NEGATIVE) SARS-CoV-2 (PCR) (NEGATIVE) - Radiology Impressions Radiology Exams & Impressions: Radiology Procedures Category Date Time Status CHEST 1 VIEW (PORTABLE) Stat Exams 01/15/24 13:10 Completed Assessment/Plan (1) Sepsis Current Visit: Yes Status: Acute Assessment & Plan: - + pneumonia seen on CXR- IV antibiotics, advair, duonebs, steriods - Lactic acid 2.3- 500mL fluid bolus gave in ER at 14:31- will repeat Lactic in 3 hours post IV infusion - HR > 90, RR > 20, WBC > 12, hypotension - Increased O2 demand - Tele - BC x2 - Vitals Q4 (2) Pneumonia Current Visit: Yes Status: Acute Assessment & Plan: - WBC 18.5 - IV antibiotics - steriods, duonebs, advair - CXR reviewed - CBC, CMP reviewed - BC x2 pending - 4L NC 91% - chest CT with PE protocol - Tele Code(s): J18.9 - PNEUMONIA, UNSPECIFIED ORGANISM (3) COPD exacerbation Current Visit: Yes Status: Acute Assessment & Plan: - see above plan for pneumonia Code(s): J44.1 - CHRONIC OBSTRUCTIVE PULMONARY DISEASE W (ACUTE) EXACERBATION (4) Hypomagnesemia Current Visit: Yes Status: Acute Assessment & Plan: - Mg+ 1.4- replaced- trend Code(s): E83.42 - HYPOMAGNESEMIA (5) Nicotine abuse Current Visit: Yes Status: Chronic Assessment & Plan: - advised cessation Code(s): Z72.0 - TOBACCO USE (6) Tetrahydrocannabinol (THC) dependence Current Visit: Yes Status: Chronic Assessment & Plan: - advised cessation Code(s): F12.20 - CANNABIS DEPENDENCE, UNCOMPLICATED (7) Underweight (BMI < 18.5) Current Visit: Yes Status: Chronic Assessment & Plan: - BMI 16.5 - nutrition consult - Ensure high protein with meals Code(s): R63.6 - UNDERWEIGHT; Z68.1 - BODY MASS INDEX [BMI] 19.9 OR LESS, ADULT (8) Type II diabetes mellitus Current Visit: Yes Status: Chronic Assessment & Plan: - Hold metformin as getting CTA - accuchecks ac/hs - insulin s/s low dose - A1C (9) Weight loss, abnormal Current Visit: Yes Status: Acute Assessment & Plan: - pt reports abnormal weight loss over 6 months period of time about 100 lbs. - CTA - Consider Abd CT Code(s): R63.4 - ABNORMAL WEIGHT LOSS (10) CHF (congestive heart failure) Current Visit: Yes Status: Chronic Assessment & Plan: - continue entresto - not in acute exacerbation VTE: Lovenox PPI: Protonix Next of KIN: Child- Andra Haynes [phone] D/C plan: 2-3 days Code status: Full Code(s): I50.9 - HEART FAILURE, UNSPECIFIED
[2024-01-15] MEDS ORDERED: DUONEB 0.5-3 MG/3 ml Neb IH PRN (17:11)
[2024-01-15] MEDS ORDERED: TYLENOL 325 MG PO PRN (17:11)
[2024-01-15] MEDS ORDERED: NORCO 10-325 MG PO PRN (17:11)
[2024-01-15] MEDS ORDERED: HUMALOG SQ PRN (17:15)
[2024-01-15] MEDS: DUONEB 0.5-3 MG/3 ml Neb IH SCH (19:23)
[2024-01-15] MEDS: Advair Hfa 115/21 Common canister IH SCH (19:24)
[2024-01-15] MEDS: Ambien 10 MG PO SCH (22:01)
[2024-01-15] MEDS: NEURONTIN PO SCH (22:01)
[2024-01-15] MEDS: Ms Contin 15 MG PO SCH (22:01)
[2024-01-15] MEDS: solu-MEDROL 40 MG, Sterile H2O 10 ml 1 ML IV SCH (22:02)
[2024-01-16 05:28] LABS: Hematocrit 30.1 % (40.1-51.0); Hemoglobin 9.7 g/dL (13.7-17.5); Mean Cell Volume 100.7 fL (79.0-92.2); Mean Corpuscular Hemoglobin 32.4 pg (25.7-32.2); Mean Corpuscular Hgb Concent. 32.2 g/dL (32.3-36.5); Platelet Count 208 x10^3/uL (163-337); Red Blood Count 2.99 x10^6/uL (4.63-6.08); Red Cell Distribution Width 15.8 % (11.6-14.4); White Blood Count 16.5 x10^3/uL (4.23-9.07)
[2024-01-16 05:53] LABS: ANION GAP 11.1 MEQ/L (5-15); BILIRUBIN,TOTAL 0.3 mg/dL (0.2-1.3); Calcium 8.5 mg/dL (8.4-10.2); Creatinine 1 0.58 mg/dL (0.66-1.25); EST GLOMERULAR FILTRATION RATE 101.7 ML/MIN; MAGNESIUM 1.9 mg/dL (1.6-2.3); Potassium 4.4 mmol/L (3.5-5.1); Total Protein 6.5 g/dL (6.3-8.2)
[2024-01-16 06:41] LABS: BAND 6 % (0.0-2.0); Lymphocytes 1 % (21.8-53.1); Neutrophils 93 % (34.0-67.9); Total Cells Counted 100
[2024-01-16 06:42] LABS: Platelet Estimate NORMAL (NORMAL)
--- NOTE | 2024-01-16 08:47 | XRAY ---
Indication: Short of breath. Weight loss. Pulmonary embolus. Multiple contiguous axial images obtained through the chest using 100 cc Isovue 370 contrast and PE protocol. Comparison: May 18, 2022 Good opacification pulmonary arteries to include the lobar and segmental branches. No pulmonary embolus. Heart not enlarged again with scattered coronary calcifications. Aorta remains moderately arteriosclerotic without aneurysm/dissection. Again moderate sized food hiatal hernia with food distended partial intrathoracic stomach. More proximal esophagus again is mildly fluid distended favoring reflux. Lungs demonstrates new near complete right lower lobe consolidating airspace disease with tiny effusion. Patchy consolidating/nonconsolidating airspace disease seen remaining right lung. Remaining lungs again demonstrates extensive pulmonary emphysema with scattered fibrosis/scarring. 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 Limited upper abdomen again demonstrates bilateral renal and hepatic cysts. Impression: 1. Continued negative pulmonary embolus. 2. New consolidating right lower lobe airspace disease with tiny effusion. Lesser patchy consolidating/nonconsolidating airspace disease right lung. 3. Again chronic hiatal hernia with food distended intrathoracic stomach and esophageal reflux. Given right lung findings, aspiration pneumonia is offered for clinical consideration. 4. Chronic findings including pulmonary emphysema, fibrosis/scarring, arteriosclerotic disease, chronic bony findings, and hepatic/renal cysts.
[2024-01-16] MEDS: ECOTRIN 81 MG PO SCH (09:38)
[2024-01-16] MEDS: Zetia 10 MG PO SCH (09:39)
[2024-01-16] MEDS: ZOCOR 20MG PO SCH (09:39)
[2024-01-16] MEDS: Klor Con PO SCH (09:39)
[2024-01-16] MEDS: ENOXAPARIN SODIUM SQ SCH (09:39)
[2024-01-16] MEDS: Protonix 20MG Tablet PO SCH (09:39)
[2024-01-16] MEDS: Zithromax 500 MG/ 250 ML NaCl Premix 500 MG/250 ML IVPB IV SCH (09:40)
[2024-01-16] MEDS: ROCEPHIN 1 GM / 100 ML NaCl 1 GM/100 ML IVPB IV SCH (09:40)
[2024-01-16] MEDS: Zestril 10 MG PO SCH (09:57)
[2024-01-16] MEDS ORDERED: EZETIMIBE PO SCH (10:00)
[2024-01-16] MEDS ORDERED: ZITHROMAX IV*** 0 MG in Sodium Chloride 0.9% 250 ML 250 ML IV SCH (10:00)
[2024-01-16] MEDS ORDERED: [UNRECOGNIZED DRUG - OTHER] PO SCH (10:00)
[2024-01-16] MEDS ORDERED: RAMIPRIL 5 MG PO SCH (10:00)
[2024-01-16] MEDS ORDERED: SIMVASTATIN PO SCH (10:00)
[2024-01-16 11:51] VITALS: BP 100/60; PULSE 93; RESP 17; TEMP 97.9
--- NOTE | 2024-01-16 12:04 | PCM.DS ---
Discharge Summary Date of Admission: 01/15/24 16:29 Date of Discharge: 01/16/24 Admitting Physician: EMERITA MCGILL MD Consults: Consults on Case 01/15/24 16:43 Nutritional Consult ROUTINE Primary Care Provider: ROSA GE Allergies Allergies No Known Drug Allergies Allergy (Verified 01/15/24 16:49) Hospital Summary - Hospital Course Hospital Course: 01/15/24 is a 73 year old male with PMHX of CAD, HTN, [place], asthma, COPD on baseline O2 of 3L NC, pancreatitis, daily smoker (2 ppd), and THC use. Pt presented to the ER today with increasing shortness of breath for the last few days with worsening since last night. Patient reports cough productive of clear to yellow sputum and feeling chills. Denies any fever. Patient reports generalized chest tightness and soreness because of repeated coughing. Patient oxygen saturation is usually in upper 80s and lower 90s at his baseline. Patient was tachycardic on presentation with sats in mid 90s on 3 L. Pt triggered sepsis in the ER. Lactic acid 2.3, HR, RR and WBC elevated. + RLL and MLL pneumonia seen on CXR. 500ml fluid bolus gave in the ER. Mg+ 1.4 and replaced in ER. WBC 18.5 and increased oxygen demand. IV antibiotics, steroids, and duonebs started in ER will continue. COVID/FLU/ RSV negative. Pt reports he has lost 100lbs over the past [address] with PE protocol ordered. He denies CP, SOB, abd. pain, N/V/D. According to nursing staff pt is on Hospice at home for Black Lung disease with [facility]. 01/16/24 Pt resting in bed on baseline O2 at 3LNC 97%. He states he feels much better and is ready to d/c home today. Discussed with case management pt is on Hospice and they verified with the company. Na+ 129 and fluid restriction started, advised to continue at home to improve Na+ level. Pt likes to drink coffee often. Will continue OP antibiotics for COPD exacerbation, pneumonia. Magnesium level improved today. He denies any further concerns at this time. He is requesting neb refills at d/c. - Vitals & Intake/Output Vital Signs: Vital Signs Temperature 97.9 F 01/16/24 11:50 Pulse Rate 93 H 01/16/24 11:50 Respiratory Rate 17 01/16/24 11:50 Blood Pressure 100/60 01/16/24 11:50 O2 Sat by Pulse Oximetry 91 L 01/16/24 11:50 Intake & Output: Intake & Output 01/13/24 01/14/24 01/15/24 01/16/24 11:59 11:59 11:59 11:59 Intake Total 490 Output Total 800 Balance -310 Weight 44.6 kg - Lab Result Diagrams: 01/16/24 04:25 01/16/24 04:25 Lab Results-Last 24 Hrs: Lab Results-Last 24 Hours 01/15/24 01/15/24 01/15/24 Range/Units 13:09 13:09 13:30 WBC 18.5 H (4.23-9.07) x10^3/uL RBC 3.22 L (4.63-6.08) x10^6/uL Hgb 10.6 L (13.7-17.5) g/dL Hct 33.5 L (40.1-51.0) % MCV 104.0 H (79.0-92.2) fL MCH 32.9 H (25.7-32.2) pg MCHC 31.6 L (32.3-36.5) g/dL RDW 15.8 H (11.6-14.4) % Plt Count 225 (163-337) x10^3/uL MPV 10.9 (9.4-12.4) fL Gran % 88.6 H (34.0-67.9) % Immature Gran % (Auto) 0.4 (0.001-0.429) % Nucleat RBC Rel Count 0.0 (0.00-0.2) % Eos # (Auto) 0.04 (0.04-0.54) x10^3/uL Immature Gran # (Auto) 0.08 H (0.001-0.031) x10^3u/L Absolute Lymphs (auto) 0.82 L (1.32-3.57) x10^3/uL Absolute Monos (auto) 1.10 H (0.30-0.82) x10^3/uL Absolute Nucleated RBC 0.00 (0.00-0.012) x10^3u/L Lymphocytes % 4.4 L (21.8-53.1) % Monocytes % 5.9 (5.3-12.2) % Eosinophils % 0.2 L (0.8-7.0) % Basophils % 0.5 (0.2-1.2) % Absolute Granulocytes 16.37 H (1.78-5.38) x10^3/uL Segmented Neutrophils (34.0-67.9) % Band Neutrophils (0.0-2.0) % Lymphocytes (Manual) (21.8-53.1) % Basophils # 0.10 H (0.01-0.08) x10^3/uL Platelet Estimate (NORMAL) RBC Morphology Sodium (135-145) mmol/L Potassium (3.5-5.1) mmol/L Chloride (98-107) mmol/L Carbon Dioxide (22-30) mmol/L Anion Gap (5-15) MEQ/L BUN (9-20) mg/dL Creatinine (0.66-1.25) mg/dL Estimated GFR ML/MIN Glucose (74-106) mg/dL POC Glucometer (74 to 106) mg/dL Hemoglobin A1c (4.5-6.0) % Lactic Acid 2.3 H (0.4-2.0) Calcium (8.4-10.2) mg/dL Magnesium (1.6-2.3) mg/dL Total Bilirubin (0.2-1.3) mg/dL AST (17-59) U/L ALT (0-50) U/L Alkaline Phosphatase (38-126) U/L Troponin I (0.000-0.033) ng/mL NT-Pro-B Natriuret Pep (<300) pg/mL Serum Total Protein (6.3-8.2) g/dL Albumin (3.5-5.0) g/dL Procalcitonin (0.030-0.080) ng/mL Influenza Type A Ag NEGATIVE (NEGATIVE) Influenza Type B Ag NEGATIVE (NEGATIVE) RSV (PCR) NEGATIVE (NEGATIVE) SARS-CoV-2 (PCR) NEGATIVE (NEGATIVE) 01/15/24 01/15/24 01/15/24 Range/Units 13:45 13:45 14:14 WBC (4.23-9.07) x10^3/uL RBC (4.63-6.08) x10^6/uL Hgb (13.7-17.5) g/dL Hct (40.1-51.0) % MCV (79.0-92.2) fL MCH (25.7-32.2) pg MCHC (32.3-36.5) g/dL RDW (11.6-14.4) % Plt Count (163-337) x10^3/uL MPV (9.4-12.4) fL Gran % (34.0-67.9) % Immature Gran % (Auto) (0.001-0.429) % Nucleat RBC Rel Count (0.00-0.2) % Eos # (Auto) (0.04-0.54) x10^3/uL Immature Gran # (Auto) (0.001-0.031) x10^3u/L Absolute Lymphs (auto) (1.32-3.57) x10^3/uL Absolute Monos (auto) (0.30-0.82) x10^3/uL Absolute Nucleated RBC (0.00-0.012) x10^3u/L Lymphocytes % (21.8-53.1) % Monocytes % (5.3-12.2) % Eosinophils % (0.8-7.0) % Basophils % (0.2-1.2) % Absolute Granulocytes (1.78-5.38) x10^3/uL Segmented Neutrophils (34.0-67.9) % Band Neutrophils (0.0-2.0) % Lymphocytes (Manual) (21.8-53.1) % Basophils # (0.01-0.08) x10^3/uL Platelet Estimate (NORMAL) RBC Morphology Sodium 134 L (135-145) mmol/L Potassium 4.3 (3.5-5.1) mmol/L Chloride 102 (98-107) mmol/L Carbon Dioxide 22 (22-30) mmol/L Anion Gap 14.1 (5-15) MEQ/L BUN 15 (9-20) mg/dL Creatinine 0.59 L (0.66-1.25) mg/dL Estimated GFR 101.2 ML/MIN Glucose 88 (74-106) mg/dL POC Glucometer (74 to 106) mg/dL Hemoglobin A1c (4.5-6.0) % Lactic Acid (0.4-2.0) Calcium 8.8 (8.4-10.2) mg/dL Magnesium 1.4 L (1.6-2.3) mg/dL Total Bilirubin 0.60 (0.2-1.3) mg/dL AST 19 (17-59) U/L ALT 15 (0-50) U/L Alkaline Phosphatase 79 (38-126) U/L Troponin I < 0.012 (0.000-0.033) ng/mL NT-Pro-B Natriuret Pep 597 (<300) pg/mL Serum Total Protein 6.4 (6.3-8.2) g/dL Albumin 3.0 L (3.5-5.0) g/dL Procalcitonin 0.073 (0.030-0.080) ng/mL Influenza Type A Ag (NEGATIVE) Influenza Type B Ag (NEGATIVE) RSV (PCR) (NEGATIVE) SARS-CoV-2 (PCR) (NEGATIVE) 01/15/24 01/15/24 01/15/24 Range/Units 17:20 17:40 21:20 WBC (4.23-9.07) x10^3/uL RBC (4.63-6.08) x10^6/uL Hgb (13.7-17.5) g/dL Hct (40.1-51.0) % MCV (79.0-92.2) fL MCH (25.7-32.2) pg MCHC (32.3-36.5) g/dL RDW (11.6-14.4) % Plt Count (163-337) x10^3/uL MPV (9.4-12.4) fL Gran % (34.0-67.9) % Immature Gran % (Auto) (0.001-0.429) % Nucleat RBC Rel Count (0.00-0.2) % Eos # (Auto) (0.04-0.54) x10^3/uL Immature Gran # (Auto) (0.001-0.031) x10^3u/L Absolute Lymphs (auto) (1.32-3.57) x10^3/uL Absolute Monos (auto) (0.30-0.82) x10^3/uL Absolute Nucleated RBC (0.00-0.012) x10^3u/L Lymphocytes % (21.8-53.1) % Monocytes % (5.3-12.2) % Eosinophils % (0.8-7.0) % Basophils % (0.2-1.2) % Absolute Granulocytes (1.78-5.38) x10^3/uL Segmented Neutrophils (34.0-67.9) % Band Neutrophils (0.0-2.0) % Lymphocytes (Manual) (21.8-53.1) % Basophils # (0.01-0.08) x10^3/uL Platelet Estimate (NORMAL) RBC Morphology Sodium (135-145) mmol/L Potassium (3.5-5.1) mmol/L Chloride (98-107) mmol/L Carbon Dioxide (22-30) mmol/L Anion Gap (5-15) MEQ/L BUN (9-20) mg/dL Creatinine (0.66-1.25) mg/dL Estimated GFR ML/MIN Glucose (74-106) mg/dL POC Glucometer (74 to 106) mg/dL Hemoglobin A1c (4.5-6.0) % Lactic Acid 1.2 (0.4-2.0) Calcium (8.4-10.2) mg/dL Magnesium (1.6-2.3) mg/dL Total Bilirubin (0.2-1.3) mg/dL AST (17-59) U/L ALT (0-50) U/L Alkaline Phosphatase (38-126) U/L Troponin I < 0.012 < 0.012 (0.000-0.033) ng/mL NT-Pro-B Natriuret Pep (<300) pg/mL Serum Total Protein (6.3-8.2) g/dL Albumin (3.5-5.0) g/dL Procalcitonin (0.030-0.080) ng/mL Influenza Type A Ag (NEGATIVE) Influenza Type B Ag (NEGATIVE) RSV (PCR) (NEGATIVE) SARS-CoV-2 (PCR) (NEGATIVE) 01/15/24 01/16/24 01/16/24 Range/Units 22:09 04:25 04:25 WBC 16.5 H (4.23-9.07) x10^3/uL RBC 2.99 L (4.63-6.08) x10^6/uL Hgb 9.7 L (13.7-17.5) g/dL Hct 30.1 L (40.1-51.0) % MCV 100.7 H (79.0-92.2) fL MCH 32.4 H (25.7-32.2) pg MCHC 32.2 L (32.3-36.5) g/dL RDW 15.8 H (11.6-14.4) % Plt Count 208 (163-337) x10^3/uL MPV 11.0 (9.4-12.4) fL Gran % (34.0-67.9) % Immature Gran % (Auto) (0.001-0.429) % Nucleat RBC Rel Count (0.00-0.2) % Eos # (Auto) (0.04-0.54) x10^3/uL Immature Gran # (Auto) (0.001-0.031) x10^3u/L Absolute Lymphs (auto) (1.32-3.57) x10^3/uL Absolute Monos (auto) (0.30-0.82) x10^3/uL Absolute Nucleated RBC (0.00-0.012) x10^3u/L Lymphocytes % (21.8-53.1) % Monocytes % (5.3-12.2) % Eosinophils % (0.8-7.0) % Basophils % (0.2-1.2) % Absolute Granulocytes (1.78-5.38) x10^3/uL Segmented Neutrophils 93 H (34.0-67.9) % Band Neutrophils 6 H (0.0-2.0) % Lymphocytes (Manual) 1 L (21.8-53.1) % Basophils # (0.01-0.08) x10^3/uL Platelet Estimate NORMAL (NORMAL) RBC Morphology NORMAL Sodium (135-145) mmol/L Potassium (3.5-5.1) mmol/L Chloride (98-107) mmol/L Carbon Dioxide (22-30) mmol/L Anion Gap (5-15) MEQ/L BUN (9-20) mg/dL Creatinine (0.66-1.25) mg/dL Estimated GFR ML/MIN Glucose (74-106) mg/dL POC Glucometer 178 H (74 to 106) mg/dL Hemoglobin A1c 5.49 (4.5-6.0) % Lactic Acid (0.4-2.0) Calcium (8.4-10.2) mg/dL Magnesium (1.6-2.3) mg/dL Total Bilirubin (0.2-1.3) mg/dL AST (17-59) U/L ALT (0-50) U/L Alkaline Phosphatase (38-126) U/L Troponin I (0.000-0.033) ng/mL NT-Pro-B Natriuret Pep (<300) pg/mL Serum Total Protein (6.3-8.2) g/dL Albumin (3.5-5.0) g/dL Procalcitonin (0.030-0.080) ng/mL Influenza Type A Ag (NEGATIVE) Influenza Type B Ag (NEGATIVE) RSV (PCR) (NEGATIVE) SARS-CoV-2 (PCR) (NEGATIVE) 01/16/24 01/16/24 01/16/24 Range/Units 04:25 07:59 11:20 WBC (4.23-9.07) x10^3/uL RBC (4.63-6.08) x10^6/uL Hgb (13.7-17.5) g/dL Hct (40.1-51.0) % MCV (79.0-92.2) fL MCH (25.7-32.2) pg MCHC (32.3-36.5) g/dL RDW (11.6-14.4) % Plt Count (163-337) x10^3/uL MPV (9.4-12.4) fL Gran % (34.0-67.9) % Immature Gran % (Auto) (0.001-0.429) % Nucleat RBC Rel Count (0.00-0.2) % Eos # (Auto) (0.04-0.54) x10^3/uL Immature Gran # (Auto) (0.001-0.031) x10^3u/L Absolute Lymphs (auto) (1.32-3.57) x10^3/uL Absolute Monos (auto) (0.30-0.82) x10^3/uL Absolute Nucleated RBC (0.00-0.012) x10^3u/L Lymphocytes % (21.8-53.1) % Monocytes % (5.3-12.2) % Eosinophils % (0.8-7.0) % Basophils % (0.2-1.2) % Absolute Granulocytes (1.78-5.38) x10^3/uL Segmented Neutrophils (34.0-67.9) % Band Neutrophils (0.0-2.0) % Lymphocytes (Manual) (21.8-53.1) % Basophils # (0.01-0.08) x10^3/uL Platelet Estimate (NORMAL) RBC Morphology Sodium 129 L (135-145) mmol/L Potassium 4.4 (3.5-5.1) mmol/L Chloride 97 L (98-107) mmol/L Carbon Dioxide 26 (22-30) mmol/L Anion Gap 11.1 (5-15) MEQ/L BUN 15 (9-20) mg/dL Creatinine 0.58 L (0.66-1.25) mg/dL Estimated GFR 101.7 ML/MIN Glucose 167 H (74-106) mg/dL POC Glucometer 174 H 146 H (74 to 106) mg/dL Hemoglobin A1c (4.5-6.0) % Lactic Acid (0.4-2.0) Calcium 8.5 (8.4-10.2) mg/dL Magnesium 1.9 (1.6-2.3) mg/dL Total Bilirubin 0.30 (0.2-1.3) mg/dL AST 19 (17-59) U/L ALT 17 (0-50) U/L Alkaline Phosphatase 65 (38-126) U/L Troponin I (0.000-0.033) ng/mL NT-Pro-B Natriuret Pep (<300) pg/mL Serum Total Protein 6.5 (6.3-8.2) g/dL Albumin 3.0 L (3.5-5.0) g/dL Procalcitonin (0.030-0.080) ng/mL Influenza Type A Ag (NEGATIVE) Influenza Type B Ag (NEGATIVE) RSV (PCR) (NEGATIVE) SARS-CoV-2 (PCR) (NEGATIVE) Micro Results-Entire Visit: Accuchecks Date 01/16/24 Date 01/15/24 Time 08:25 Time 22:30 - Radiology Exams Ordered Rad Exams-Entire Visit: Radiology Procedures Category Date Time Status CHEST 1 VIEW (PORTABLE) Stat Exams 01/15/24 13:10 Completed CHEST WITH CONTRAST [CT] Routine Exams 01/15/24 17:05 Completed - Procedures and Test Procedures and Tests throughout Hospitalization: Therapy Orders & Screens 01/15/24 14:00 Respiratory Therapy Assessment DAILY Comment: 01/15/24 16:36 Oxygen Nasal Cannula 4 lpm Comment: Respiratory Therapy Consult ONCE Comment: Reason For Exam: 01/15/24 16:59 Respiratory MDI BID Comment: Diagnosis: sepsis, pneumonia 01/15/24 17:04 Respiratory Therapy Assessment DAILY Comment: Diagnosis: sepsis, pneumonia 01/15/24 17:08 PT Eval & Treat (MD Order) ONCE Reason for Eval:: weakness Diagnosis: sepsis, pneumonia 01/15/24 17:24 RT Screen per Nursing Assess ONCE Comment: Protocol Order Physician Instructions: Greater than 3 points order RT Admission Screen Reason For Exam: Triggered on Admission Diagnosis: sepsis, pneumonia Diagnosis: sepsis, pneumonia Pneumonia: Yes Home O2: Yes Asthma: No CHF: No Home CPAP/BIPAP: No Home Nebs/MDI: Yes Total Points: 13 Smoking Cessation Education ONCE Comment: Diagnosis: sepsis, pneumonia Smoking Status: Current every day smoker How long have you smoked: years Have you smoked in the past 12 months: Yes Approximately how many cigarettes per day: 2 PACKS Do you dip or chew tobacco: No ST Screen per Nursing Assess ONCE Comment: Protocol Order Physician Instructions: Greater than [address] Admission Screening Reason For Exam: Triggered on Admission Diagnosis: sepsis, pneumonia CVA/Dyshpagia/Aphasia: No Cognitive Deficits: No Dehydration/Nutrition Deficit: No Reflux: No Oral-Motor Difficulties: No Pneumonia: Yes Snf Resident: No Total Points: 5 Discharge Exam General Appearance: no apparent distress, alert Neurologic Exam: alert, oriented x 3, cooperative, normal mood/affect, nml cerebellar function, sensation nml, No motor deficits Eye Exam: PERRL, EOMI, eyes nml inspection Ears, Nose, Throat Exam: normal ENT inspection, pharynx normal, moist mucous membranes Neck Exam: normal inspection, non-tender, supple, full range of motion Respiratory Exam: diminished breath sounds (BLLL), No respiratory distress Cardiovascular Exam: regular rate/rhythm, normal heart sounds Gastrointestinal/Abdomen Exam: soft, No tenderness, No mass Male Genitalia Exam: deferred Rectal Exam: deferred Back Exam: normal inspection, normal range of motion, No CVA tenderness, No vertebral tenderness Extremity Exam: normal inspection, normal range of motion Skin Exam: normal color, warm, dry Final Diagnosis/Problem List - Final Discharge Diagnosis/Problem (1) Sepsis Current Visit: Yes Status: Acute (2) Pneumonia Current Visit: Yes Status: Acute Code(s): J18.9 - PNEUMONIA, UNSPECIFIED ORGANISM (3) COPD exacerbation Current Visit: Yes Status: Acute Code(s): J44.1 - CHRONIC OBSTRUCTIVE PULMONARY DISEASE W (ACUTE) EXACERBATION (4) Hypomagnesemia Current Visit: Yes Status: Acute Code(s): E83.42 - HYPOMAGNESEMIA (5) Nicotine abuse Current Visit: Yes Status: Chronic Code(s): Z72.0 - TOBACCO USE (6) Tetrahydrocannabinol (THC) dependence Current Visit: Yes Status: Chronic Code(s): F12.20 - CANNABIS DEPENDENCE, UNCOMPLICATED (7) Underweight (BMI < 18.5) Current Visit: Yes Status: Chronic Code(s): R63.6 - UNDERWEIGHT; Z68.1 - BODY MASS INDEX [BMI] 19.9 OR LESS, ADULT (8) Type II diabetes mellitus Current Visit: Yes Status: Chronic (9) Weight loss, abnormal Current Visit: Yes Status: Acute Code(s): R63.4 - ABNORMAL WEIGHT LOSS (10) CHF (congestive heart failure) Current Visit: Yes Status: Chronic Assessment & Plan: (1) Sepsis Current Visit: Yes Status: Acute Assessment & Plan: - + pneumonia seen on CXR- IV antibiotics, advair, duonebs, steriods - Lactic acid 2.3- 500mL fluid bolus gave in ER at 14:31- will repeat Lactic in 3 hours post IV infusion - HR > 90, RR > 20, WBC > 12, hypotension - Increased O2 demand - Tele - x2- pending- will continue to follow OP - Vitals Q4 01/15 - On BL O2 at 3lNC 97% - LA 1.2 today- WNL (2) Pneumonia Current Visit: Yes Status: Acute Assessment & Plan: - WBC 18.5 - IV antibiotics - steriods, duonebs, advair - CXR reviewed - CBC, CMP reviewed - BC x2 pending - 4L NC 91% - chest CT with PE protocol- reviewed - Tele - CBC, CMP reviewed - BC x2 pending- will continue to follow OP - D/C with oral antibiotics, nebs, and steroids - WBC 16.5- improved - On baseline O2 3LNC- 97% Code(s): J18.9 - PNEUMONIA, UNSPECIFIED ORGANISM (3) COPD exacerbation Current Visit: Yes Status: Acute Assessment & Plan: - see above plan for pneumonia Code(s): J44.1 - CHRONIC OBSTRUCTIVE PULMONARY DISEASE W (ACUTE) EXACERBATION (4) Hypomagnesemia Current Visit: Yes Status: Acute Assessment & Plan: - Mg+ 1.4- replaced- trend 01/15 - Mg+ 1.9- resolved Code(s): E83.42 - HYPOMAGNESEMIA (5) Nicotine abuse Current Visit: Yes Status: Chronic Assessment & Plan: - advised cessation - nicotine patch Code(s): Z72.0 - TOBACCO USE (6) Tetrahydrocannabinol (THC) dependence Current Visit: Yes Status: Chronic Assessment & Plan: - advised cessation Code(s): F12.20 - CANNABIS DEPENDENCE, UNCOMPLICATED (7) Underweight (BMI < 18.5) Current Visit: Yes Status: Chronic Assessment & Plan: - BMI 16.5 - nutrition consult - Ensure high protein with meals Code(s): R63.6 - UNDERWEIGHT; Z68.1 - BODY MASS INDEX [BMI] 19.9 OR LESS, ADULT (8) Type II diabetes mellitus Current Visit: Yes Status: Chronic Assessment & Plan: - Hold metformin as getting CTA - accuchecks ac/hs - insulin s/s low dose - A1C 5.49- controlled (9) Weight loss, abnormal Current Visit: Yes Status: Acute Assessment & Plan: - pt reports abnormal weight loss over 6 months period of time about 100 lbs. - CTA- reviwed - Consider Abd CT - Has [facility]ice at home for black lung Code(s): R63.4 - ABNORMAL WEIGHT LOSS (10) CHF (congestive heart failure) Current Visit: Yes Status: Chronic Assessment & Plan: - continue entresto - not in acute exacerbation Code(s): I50.9 - HEART FAILURE, UNSPECIFIED (11) Black lung disease Current Visit: Yes Status: Chronic Assessment & Plan: - Has hospice at home with [facility] per pt for this dx - Continue OP Code(s): J60 - COALWORKER'S PNEUMOCONIOSIS - Discharge Discharge Date: 01/16/24 Disposition: Home, Self-Care Condition: Stable Prescriptions: New levoFLOXacin [Levofloxacin] 750 mg PO DAILY 5 Days #5 tablet Prednisone 20 mg [Deltasone 20 mg] 20 mg PO BID 5 Days #10 tablet Albuterol/Ipratropium 3ml Neb* [DUONEB 0.5-3 MG/3 ml Neb] 3 ml IH QIDRT 30 Days #120 units Continue Zolpidem Tartrate [Ambien] 10 mg PO QHS Ramipril 5 mg [Altace 5 MG] 2.5 mg PO DAILY Metformin HCl 500 mg [Glucophage 500 MG] 500 mg PO BID Ezetimibe/Simvastatin [Ezetimibe-Simvastatin 10-20 mg] 1 each PO DAILY Gabapentin [Neurontin ] 300 mg PO TID Aspirin EC 81 mg [Ecotrin 81 mg] 162 mg PO DAILY Albuterol Common Canister [Ventolin Common Canister] 1 puff IH Q4HPRN PRN PRN Reason: Shortness Of Breath/Wheezing Potassium Chloride [Klor-Con 10] 10 meq PO DAILY Hydrocodone/Acetaminophen [Hydrocodone-Acetamin 10-325 mg] 1 each PO Q4HPRN PRN PRN Reason: Pain Morphine Sulfate [Morphine Sulfate ER] 15 mg PO BID Albuterol/Ipratropium 3ml Neb* [DUONEB 0.5-3 MG/3 ml Neb] 1 neb IH Q4HPRN PRN PRN Reason: Shortness Of Breath/Wheezing Instructions: Hyponatremia, COPD exacerbation, Pneumonia in adults Additional Instructions: Try to limit coffee intake as you are making your sodium low. Try to drink less than 1 liter per day total fluids. Follow up with PCP for repeat labs. Follow up with: ROSA GE NP [Primary Care Provider] -
[2024-01-16 22:07] VITALS: O2SAT 85
== END 2024-01-16 13:52 | disposition home or self-care (01) ==
LOC: ED 12:58 → MED SURG 16:29
PROVIDERS: ADMIT Internal Medicine; ATTEND Internal Medicine
DX: A41.9 Sepsis, unspecified organism (principal); J18.9 Pneumonia, unspecified organism; J44.1 Chronic obstructive pulmonary disease with (acute) exacerbation; E83.42 Hypomagnesemia; Z72.0 Tobacco use; F12.20 Cannabis dependence, uncomplicated; Z68.1 Body mass index [BMI] 19.9 or less, adult; R63.4 Abnormal weight loss; I11.0 Hypertensive heart disease with heart failure; I50.9 Heart failure, unspecified; E11.9 Type 2 diabetes mellitus without complications; J60 Coalworker's pneumoconiosis; Z79.899 Other long term (current) drug therapy; Z99.81 Dependence on supplemental oxygen
CPT/HCPCS: 0241U; 36415; 71045; 71260; 80053; 82947; 83036; 83605; 83735; 83880; 84145; 84484; 85025; 85027; 87040; 93005; 93041; 94640; 94760; 94762; 96365; 96367; 96374; 96375; 99285; Q3014; 93268; J0456; J0696; J1650; J2919; J3475; A9270-GY; G0378

== ENCOUNTER 2024-04-24 23:45 | Emergency (ER) | payer OTHER ==
[2024-04-25 00:01] VITALS: TEMP 97.3
--- NOTE | 2024-04-25 00:21 | ERPHSYRPT ---
- History of Present Illness Time Seen by Provider: 04/25/24 00:10 Source: patient, EMS Exam Limitations: no limitations Patient Subjective Stated Complaint: "I've been vomiting since yesterday and feel really weak". Triage Nursing Assessment: Pt presents to ER via ambulance with complaints of vomiting x 2 days. Pt is on hospice and has chronic lung and heart issues. Pt is frail and weak. 2+ pitting edema to bilateral lower extermities. Lungs are clear and diminished throughout. Vomited once [employer] in ambulance. States his abdomen hurts when attempting to eat. Pt has tenderness to left forehead, eye, and posterior neck from fall that occurred earlier this week. Bruising noted around left eye. Pt is alert and oriented x 3. Physician History: This is a cachectic appearing 73-year-old white male patient was brought to the emergency room by the paramedics and is a patient of nurse he [place] for vomiting and weakness. Symptoms of vomiting began 04/23/2024. Patient also fell on that day as well hitting the left side of his head and has pain in the left side of his head and posterior neck. Patient also has abdominal pain as well. Patient continues to smoke tobacco. He has a history of coronary artery disease (cardiac stent). He has a history of hypertension, asthma, COPD, pancreatitis and "black lung". He currently does not have chest pain or shortness of breath. He has not had diarrheal stools. Timing/Duration: day(s) (2) Severity: moderate Associated Symptoms: nausea, vomiting, abdominal pain, headaches (Left side), weakness, No shortness of breath, No chest pain, No fever Allergies/Adverse Reactions: No Known Drug Allergies Allergy (Verified 04/25/24 00:02) Home Medications: Ramipril 5 mg [Altace 5 MG] 2.5 mg PO DAILY 06/24/14 [History] Ezetimibe/Simvastatin [Ezetimibe-Simvastatin 10-20 mg] 1 each PO DAILY 03/28/21 [History] Gabapentin [Neurontin ] 300 mg PO TID 05/15/22 [History] Albuterol Common Canister [Ventolin Common Canister] 1 puff IH Q4HPRN PRN 01/15/24 [History] Albuterol/Ipratropium 3ml Neb* [DUONEB 0.5-3 MG/3 ml Neb] 1 neb IH Q4HPRN PRN 01/15/24 [History] Potassium Chloride [Klor-Con 10] 10 meq PO DAILY 01/15/24 [History] Bumetanide 1 mg [Bumex 1 mg] 1 mg PO DAILY 02/04/24 [History] Ondansetron [Ondansetron Odt ] 4 mg PO Q4H PRN 02/04/24 [History] PANTOPRAZOLE 40 mg Tablet [Protonix 40MG Tablet] 40 mg PO DAILY 02/04/24 [History] Cyanocobalamin 1000 Mcg/ml [Cyanocobalamin B-12 1000 MCG/ML] 1 ml IM WEEKLY 04/25/24 [History] Magnesium Oxide 400 mg [Mag-Ox 400] 400 mg PO HS 04/25/24 [History] Mirtazapine 15 mg PO HS 04/25/24 [History] Sennosides/Docusate Sodium [Senexon-S 50-8.6 mg Tablet] 8.6 mg PO DAILY 04/25/24 [History] Tiotropium [place] [Spiriva] 18 mcg IH DAILY PRN PRN 04/25/24 [History] Hx Tetanus, Diphtheria Vaccination/Date Given: No Hx Influenza Vaccination/Date Given: Yes Hx Pneumococcal Vaccination/Date Given: Yes Travel Risk - International Travel Have you traveled outside of the country in past 3 weeks: No - Emerging Infectious Disease Are you exhibiting symptoms associated with any current EIDs: No Symptoms: Shortness of Breath - Review of Systems Constitutional: Weakness Eyes: No Symptoms Ears, Nose, & Throat: No Symptoms Respiratory: No Symptoms Cardiac: No Symptoms Abdominal/Gastrointestinal: Abdominal Pain, Nausea, Vomiting, Appetite Changes Genitourinary Symptoms: No Symptoms Musculoskeletal: Neck Pain, Fall Skin: No Symptoms Neurological: Headache (Left side of his head) Psychological: No Symptoms Endocrine: No Symptoms Hematologic/Lymphatic: No Symptoms Immunological/Allergic: No Symptoms All Other Systems: Reviewed and Negative - Past Medical History Pertinent Past Medical History: Yes Neurological History: No Pertinent History ENT History: No Pertinent History Cardiac History: Coronary Artery Disease, Hypertension, Myocardial Infarction (ID) Respiratory History: Asthma, COPD Endocrine Medical History: No Pertinent History Musculoskeletal History: No Pertinent History GI Medical History: No Pertinent History, Pancreatitis History: No Pertinent History Psycho-Social History: No Pertinent History Male Reproductive Disorders: No Pertinent History Other Medical History: black lung - Past Surgical History Past Surgical History: Yes Neuro Surgical History: No Pertinent History Cardiac: Cardiac Stent Respiratory: No Pertinent History Gastrointestinal: Appendectomy Genitourinary: No Pertinent History Musculoskeletal: No Pertinent History Male Surgical History: No Pertinent History Other Surgical History: 4 STENTS PLACED Significant Family History: no pertinent family hx - Social History Smoking Status: Current every day smoker How long have you smoked: 60 years Exposure to second hand smoke: Yes Drug Use: none - Social Determinants of Health Will the patient participate in the screening: Yes Do you worry about a steady place to live?: No Do you have any problems with any of the following?: Pest (bugs,ants,or mice) In the past 12 months,have you had to go without utilities?: No Transportation Issues: No Has anyone in your support network made you feel unsafe?: No Have you or anyone in your house had to go w/o enough food: No Comment: bedbugs - Nursing Vital Signs Nursing Vital Signs: Initial Vital Signs Temperature 97.3 F 04/24/24 23:56 Pulse Rate 85 04/24/24 23:56 Respiratory Rate 16 04/24/24 23:56 Blood Pressure 81/53 04/24/24 23:56 O2 Sat by Pulse Oximetry 92 L 04/24/24 23:56 Pain Scale Pain Intensity 0 - Physical Exam General Appearance: no apparent distress, alert, anxiety, thin Eye Exam: PERRL/EOMI Ears, Nose, Throat Exam: normal ENT inspection, dry mucous membranes Neck Exam: normal inspection, non-tender, supple, full range of motion Respiratory Exam: normal breath sounds, lungs clear, airway intact, No chest tenderness, No respiratory distress Cardiovascular Exam: regular rate/rhythm, normal heart sounds, normal peripheral pulses Gastrointestinal/Abdomen Exam: soft, normal bowel sounds, No tenderness Rectal Exam: not done Back Exam: normal inspection, normal range of motion, No CVA tenderness, No vertebral tenderness Neurologic Exam: alert, oriented x 3, cooperative, chief operations officer 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 nml as tested, normal mood/affect, sensation nml Skin Exam: normal color, warm, dry Lymphatic Exam: No adenopathy SpO2 Interpretation: borderline oxygenation SpO2: 91 O2 Delivery: Nasal Cannula - Course Nursing assessment & vital signs reviewed: Yes Ordered Tests: Active Orders 24 hr Category Date Time Status IV Insertion STAT Care 04/25/24 00:20 Active ACO SDOH Referral ROUTINE Cons 04/25/24 00:01 Active ABDOMEN AND PELVIS W/0 CONTRAS [CT] Stat Exams 04/25/24 00:47 Completed CERVICAL SPINE WO CONTRAST [CT] Stat Exams 04/25/24 00:37 Completed CHEST 1 VIEW (PORTABLE) Stat Exams 04/25/24 02:16 Taken HEAD WITHOUT CONTRAST [CT] Stat Exams 04/25/24 00:23 Completed AMYLASE Stat Lab 04/25/24 00:46 Completed BLOOD CULTURE Stat Lab 04/25/24 02:36 Received CBC W DIFF Stat Lab 04/25/24 00:46 Completed CMP Stat Lab 04/25/24 00:46 Completed MONO SCREEN Stat Lab 04/25/24 00:46 Completed Manual Differential NC Stat Lab 04/25/24 00:46 Completed TROPONIN Q4H Lab 04/25/24 00:51 Completed TROPONIN Q4H Lab 04/25/24 03:10 Completed TROPONIN Q4H Lab 04/25/24 09:00 Ordered UA W/RFX UR CULTURE Stat Lab 04/25/24 01:52 Completed Medication Summary Generic Name Dose Route Start Last Admin Trade Name Freq PRN Reason Stop Dose Admin Sodium Chloride 1,000 mls @ 250 mls/hr 04/25/24 00:30 04/25/24 00:36 Sodium Chloride 0.9% 1000 Ml IV 05/25/24 00:29 250 mls/hr .Q4H MIKAEL Administration Ceftriaxone Sodium 1 gm in 100 mls @ 200 mls/hr 04/25/24 03:44 Rocephin 1 Gm / 100 Ml Nacl IV 04/25/24 04:13 STAT ONE Discontinued Medications Generic Name Dose Route Start Last Admin Trade Name Freq PRN Reason Stop Dose Admin Ondansetron HCl 4 mg 04/25/24 00:22 04/25/24 00:36 Ondansetron Hcl 4 Mg/2 Ml Vial IV 04/25/24 00:23 4 mg STAT ONE Administration Ondansetron HCl Confirm 04/25/24 00:30 Ondansetron Hcl 4 Mg/2 Ml Vial Administered 04/25/24 00:31 Dose 4 mg .ROUTE .STK-MED ONE Lab/Rad Data: Laboratory Result Diagrams 04/25/24 00:46 04/25/24 00:46 Laboratory Results 04/25/24 04/25/24 04/25/24 Range/Units 03:10 01:52 00:51 WBC (4.23-9.07) x10^3/uL RBC (4.63-6.08) x10^6/uL Hgb (13.7-17.5) g/dL Hct (40.1-51.0) % MCV (79.0-92.2) fL MCH (25.7-32.2) pg MCHC (32.3-36.5) g/dL RDW (11.6-14.4) % Plt Count (163-337) x10^3/uL MPV (9.4-12.4) fL Segmented Neutrophils (34.0-67.9) % Band Neutrophils (0.0-2.0) % Lymphocytes (Manual) (21.8-53.1) % Monocytes (Manual) (5.3-12.2) % Hypochromia Platelet Estimate (NORMAL) RBC Morphology Basophilic Stippling Sodium (135-145) mmol/L Potassium (3.5-5.1) mmol/L Chloride (98-107) mmol/L Carbon Dioxide (22-30) mmol/L Anion Gap (5-15) MEQ/L BUN (9-20) mg/dL Creatinine (0.66-1.25) mg/dL Estimated GFR ML/MIN Glucose (74-106) mg/dL Calcium (8.4-10.2) mg/dL Total Bilirubin (0.2-1.3) mg/dL AST (17-59) U/L ALT (0-50) U/L Alkaline Phosphatase (38-126) U/L Troponin I < 0.012 < 0.012 (0.000-0.033) ng/mL Serum Total Protein (6.3-8.2) g/dL Albumin (3.5-5.0) g/dL Amylase (30-110) U/L Urine Color Yellow (Yellow) Urine Appearance Clear (Clear) Urine pH 5.0 (4.6-8.0) Ur Specific [place] 1.020 (1.005-1.030) Urine Protein Trace A (Negative) Urine Glucose (UA) Negative (Negative) mg/dL Urine Ketones 15 A (Negative) Urine Blood Negative (Negative) Urine Nitrite Negative (Negative) Urine Bilirubin Negative (Negative) Urine Urobilinogen 0.2 (0.2) mg/dL Ur Leukocyte Esterase Negative (Negative) U Hyaline Cast (Auto) 0-2 (0-2) /LPF Urine Microscopic RBC 0-2 (0-5) /HPF Urine Microscopic WBC 3-5 (0-5) /HPF Ur Epithelial Cells Rare (None Seen) /HPF Urine Bacteria Few A (None Seen) /HPF Urine Culture Reflexed NO (NO) Monoscreen (NEGATIVE) Influenza Type A Ag (NEGATIVE) Influenza Type B Ag (NEGATIVE) RSV (PCR) (NEGATIVE) SARS-CoV-2 (PCR) (NEGATIVE) 04/25/24 04/25/24 04/25/24 Range/Units 00:46 00:46 00:46 WBC (4.23-9.07) x10^3/uL RBC (4.63-6.08) x10^6/uL Hgb (13.7-17.5) g/dL Hct (40.1-51.0) % MCV (79.0-92.2) fL MCH (25.7-32.2) pg MCHC (32.3-36.5) g/dL RDW (11.6-14.4) % Plt Count (163-337) x10^3/uL MPV (9.4-12.4) fL Segmented Neutrophils (34.0-67.9) % Band Neutrophils (0.0-2.0) % Lymphocytes (Manual) (21.8-53.1) % Monocytes (Manual) (5.3-12.2) % Hypochromia Platelet Estimate (NORMAL) RBC Morphology Basophilic Stippling Sodium 135 (135-145) mmol/L Potassium 4.7 (3.5-5.1) mmol/L Chloride 95 L (98-107) mmol/L Carbon Dioxide 31 H (22-30) mmol/L Anion Gap 14.1 (5-15) MEQ/L BUN 36 H (9-20) mg/dL Creatinine 0.67 (0.66-1.25) mg/dL Estimated GFR 97.4 ML/MIN Glucose 94 (74-106) mg/dL Calcium 8.6 (8.4-10.2) mg/dL Total Bilirubin 0.50 (0.2-1.3) mg/dL AST 27 (17-59) U/L ALT 13 (0-50) U/L Alkaline Phosphatase 71 (38-126) U/L Troponin I (0.000-0.033) ng/mL Serum Total Protein 6.9 (6.3-8.2) g/dL Albumin 3.4 L (3.5-5.0) g/dL Amylase 65 (30-110) U/L Urine Color (Yellow) Urine Appearance (Clear) Urine pH (4.6-8.0) Ur Specific [place] (1.005-1.030) Urine Protein (Negative) Urine Glucose (UA) (Negative) mg/dL Urine Ketones (Negative) Urine Blood (Negative) Urine Nitrite (Negative) Urine Bilirubin (Negative) Urine Urobilinogen (0.2) mg/dL Ur Leukocyte Esterase (Negative) U Hyaline Cast (Auto) (0-2) /LPF Urine Microscopic RBC (0-5) /HPF Urine Microscopic WBC (0-5) /HPF Ur Epithelial Cells (None Seen) /HPF Urine Bacteria (None Seen) /HPF Urine Culture Reflexed (NO) Monoscreen NEGATIVE (NEGATIVE) Influenza Type A Ag NEGATIVE (NEGATIVE) Influenza Type B Ag NEGATIVE (NEGATIVE) RSV (PCR) NEGATIVE (NEGATIVE) SARS-CoV-2 (PCR) NEGATIVE (NEGATIVE) 04/25/24 Range/Units 00:46 WBC 23.8 H (4.23-9.07) x10^3/uL RBC 3.21 L (4.63-6.08) x10^6/uL Hgb 10.2 L (13.7-17.5) g/dL Hct 34.0 L (40.1-51.0) % MCV 105.9 H (79.0-92.2) fL MCH 31.8 (25.7-32.2) pg MCHC 30.0 L (32.3-36.5) g/dL RDW 16.1 H (11.6-14.4) % Plt Count 178 (163-337) x10^3/uL MPV 10.8 (9.4-12.4) fL Segmented Neutrophils 89 H (34.0-67.9) % Band Neutrophils 5 H (0.0-2.0) % Lymphocytes (Manual) 2 L (21.8-53.1) % Monocytes (Manual) 4 L (5.3-12.2) % Hypochromia 1+ Platelet Estimate NORMAL (NORMAL) RBC Morphology ABNORMAL Basophilic Stippling 1+ Sodium (135-145) mmol/L Potassium (3.5-5.1) mmol/L Chloride (98-107) mmol/L Carbon Dioxide (22-30) mmol/L Anion Gap (5-15) MEQ/L BUN (9-20) mg/dL Creatinine (0.66-1.25) mg/dL Estimated GFR ML/MIN Glucose (74-106) mg/dL Calcium (8.4-10.2) mg/dL Total Bilirubin (0.2-1.3) mg/dL AST (17-59) U/L ALT (0-50) U/L Alkaline Phosphatase (38-126) U/L Troponin I (0.000-0.033) ng/mL Serum Total Protein (6.3-8.2) g/dL Albumin (3.5-5.0) g/dL Amylase (30-110) U/L Urine Color (Yellow) Urine Appearance (Clear) Urine pH (4.6-8.0) Ur Specific [place] (1.005-1.030) Urine Protein (Negative) Urine Glucose (UA) (Negative) mg/dL Urine Ketones (Negative) Urine Blood (Negative) Urine Nitrite (Negative) Urine Bilirubin (Negative) Urine Urobilinogen (0.2) mg/dL Ur Leukocyte Esterase (Negative) U Hyaline Cast (Auto) (0-2) /LPF Urine Microscopic RBC (0-5) /HPF Urine Microscopic WBC (0-5) /HPF Ur Epithelial Cells (None Seen) /HPF Urine Bacteria (None Seen) /HPF Urine Culture Reflexed (NO) Monoscreen (NEGATIVE) Influenza Type A Ag (NEGATIVE) Influenza Type B Ag (NEGATIVE) RSV (PCR) (NEGATIVE) SARS-CoV-2 (PCR) (NEGATIVE) - Progress Progress: improved Progress Note: 04/25/24 00:46 My medical decision making in the assignment of at least moderate complexity was based on review of the patient's past medical history, review the patient's medication list, reviewed patient drug allergy list, history of present illness and physical findings on examination. The workup includes placement of intravenous line, infusion of normal saline solution, CBC, CMP, amylase, lipase, urinalysis, twelve-lead EKG, troponin level, CT scan of head without contrast, viral swabs, CT scan of cervical spine without contrast 04/25/24 00:48 Differential diagnosis includes but is not limited to acute intra-abdominal abnormality, dehydration, urinary tract infection, pancreatitis, cervical spine strain, cervical strain fracture/subluxation, acute intracranial abnormality, arrhythmia, myocardial infarction 04/25/24 03:47 The patient's laboratory data results. Based on the laboratory data results, the patient has a widened BUN/creatinine suggesting possible dehydration. The patient had vomited several times. Patient has a white count of 23.8 (on 04/02/2024, the white count was 5.7). This could be a sign of infection or dehydration/stress reaction post vomiting multiple times. There are trace ketones in the patient's urine. The preliminary chest x-ray report was interpreted by me. There appears to be chronic changes consistent with COPD. However there also appears to be right base infiltrate versus scarring versus atelectasis. The following CT scans without contrast were interpreted by the radiologist and I reviewed the impression: CT scan of the head shows no acute intracranial abnormality. There are chronic microvascular changes and cerebral atrophy present. There is also evidence of bilateral maxillary sinusitis. CT scan of the cervical spine shows no acute fracture or subluxation. There is evidence of cervical spondylosis. The CT scan of the abdomen pelvis shows a large confluent consolidation of right lower lobe. There is evidence of possible achalasia. There is also evidence of sigmoid diverticulosis. I spoke with the patient regarding the recommendation that this patient be placed in the hospital setting for IV antibiotics and respiratory therapy treatment as well as IV fluid. Patient is of sound mind he is awake he is alert he is oriented. He does not want to be transferred to any facility and does not want to be placed in the hospital. He realized that his condition can worsen and he could from his worsening condition. He understands and he will sign out AGAINST MEDICAL ADVICE and be treated at home Counseled pt/family regarding: lab results, diagnosis, rad results Medical Desision Making - Diagnostic Testing Diagnostic test were ordered, analyzed, and reviewed by me: Yes Radiological Interpretation: Interpreted by me, Reviewed by me, Teleradiologist Report - Risk of complications The pt has a mod risk of morbidity or mortality based on: Need for prescription drug management - Departure Departure Disposition: AMA Clinical Impression: Hypotension, Vomiting, Right lower lobe pulmonary infiltrate, Leukocytosis, Dehydration Condition: Fair Critical Care Time: Yes Critical Care Time(excluding separately billable procedures): Critical 30-74 mins (45) Referrals: ROSA MONTANA NP [Primary Care Provider] - Follow up/PCP as directed Additional Instructions: Avoid exposure to any kind of smoke. Drink plenty of fluids. Take all your medications as prescribed. Return to the emergency department if your symptoms worsen. On 04/27/2024, call your primary care provider to make arrangements for follow-up appointment for further evaluation management Prescriptions: Ondansetron ODT 4 MG [Zofran Odt 4 mg] 4 mg PO Q6H PRN PRN #10 tablet PRN Reason: Vomiting cefuroxime axetiL [Cefuroxime] 500 mg PO BID #14 tablet
[2024-04-25] MEDS ORDERED: Zofran 4 MG/2 ML VIAL ONE (00:30)
[2024-04-25] MEDS ORDERED: Sodium Chloride 0.9% 1000 ML 1,000 ML ONE (00:30)
[2024-04-25] MEDS: Sodium Chloride 0.9% 1000 ML 1,000 ML IV SCH (00:36)
[2024-04-25] MEDS: Zofran 4 MG/2 ML VIAL IV ONE (00:36)
[2024-04-25 00:49] LABS: Hemoglobin 10.2 g/dL (13.7-17.5); Mean Cell Volume 105.9 fL (79.0-92.2); Mean Corpuscular Hemoglobin 31.8 pg (25.7-32.2); Mean Platelet Volume 10.8 fL (9.4-12.4); Platelet Count 178 x10^3/uL (163-337); Red Blood Count 3.21 x10^6/uL (4.63-6.08); Red Cell Distribution Width 16.1 % (11.6-14.4); White Blood Count 23.8 x10^3/uL (4.23-9.07)
[2024-04-25 01:03] LABS: ALBUMIN 3.4 g/dL (3.5-5.0); ANION GAP 14.1 MEQ/L (5-15); BILIRUBIN,TOTAL 0.5 mg/dL (0.2-1.3); Calcium 8.6 mg/dL (8.4-10.2); Creatinine 1 0.67 mg/dL (0.66-1.25); EST GLOMERULAR FILTRATION RATE 97.4 ML/MIN; Potassium 4.7 mmol/L (3.5-5.1); Total Protein 6.9 g/dL (6.3-8.2)
[2024-04-25 01:24] LABS: BAND 5 % (0.0-2.0); Lymphocytes 2 % (21.8-53.1); Monocyte 4 % (5.3-12.2); Neutrophils 89 % (34.0-67.9); Platelet Estimate NORMAL (NORMAL); Total Cells Counted 100
[2024-04-25 01:25] LABS: Hypochromia 1+; INFLUENZA A NEGATIVE (NEGATIVE); INFLUENZA B NEGATIVE (NEGATIVE); RESPIRATORY SYNCTIAL VIRUS NEGATIVE (NEGATIVE); SARS-CoV-2 Xpert Express NEGATIVE (NEGATIVE)
[2024-04-25 01:26] LABS: Basophilic Stippling 1+
[2024-04-25 02:17] LABS: Appearance Clear (Clear); Bilirubin Negative (Negative); Blood Negative (Negative); Glucose, Urine Negative (Negative); Ketones 15 (Negative); Leukocyte Esterase Negative (Negative); Nitrite Negative (Negative); Protein,Urine Dip Trace (Negative); RBC 0-2 /HPF (0-5); Urobilinogen 0.2 mg/dL (0.2)
[2024-04-25 02:18] LABS: Bacteria Few /HPF (None Seen); Epithelial Cells Rare /HPF (None Seen); Hyaline Casts 0-2 /LPF (0-2)
--- NOTE | 2024-04-25 02:37 | XRAY ---
CLINICAL HISTORY: Fall injury COMPARISON: None. TECHNIQUE: Computed tomography of the cervical spine performed without intravenous contrast. Contiguous axial images were obtained from the skull base to T2, with sagittal and coronal reformatted images reconstructed from the axial data. CT scan was performed according to ALARA (as low as reasonable achievable). FINDINGS: Loss of cervical lordosis - suggest possibility of muscle spasm/positional. Degenerative changes involving cervical spine in the form of multilevel marginal osteophytes, disc space reduction and facetal arthrosis. Mild retrolisthesis of C2 over C3, C3 over C4, C4 over C5 and C5 over C6 vertebra. Cervical vertebral bodies are normal in height and alignment, with no evidence of fracture or subluxation. Lateral masses of C1 are symmetrical, and the dens is intact. Prevertebral soft tissues are not widened. The remaining suprahyoid and infrahyoid soft tissues in the neck are unremarkable. Posterior uncovertebral arthrosis is noted at C3-C4 to C6-C7 levels, which indenting ventral thecal sac and causes bilateral neuroforaminal narrowing. Thyroid gland appears unremarkable. IMPRESSION: 1.No acute fracture or subluxation in the cervical spine. 2.Cervical spondylosis. Electronically Signed by: Boni Alcala MD. (04/25/2024 02:32:50 EST)
--- NOTE | 2024-04-25 02:49 | XRAY ---
CLINICAL HISTORY: ABD pain; vomiting COMPARISON: None. TECHNIQUE: Contiguous axial images were obtained from the level of the diaphragm to the pubic symphysis without intravenous or oral contrast. Coronal and sagittal reconstructions were likewise performed and indicated to increase the sensitivity for detecting clinically relevant pathology. CT scan was performed according to ALARA (as low as reasonable achievable). FINDINGS: The visualized lung bases show large confluent consolidation in right lower lobe. Dilated distal esophagus with fecal matter inside. Patchy ground-glass opacities are also noted involving right middle lobe and lingula. Diffuse atherosclerotic calcification is noted involving aorta iliac arteries. Evaluation of the abdominal and pelvic visceral organs is limited without intravenous contrast. few simple cystic lesions are noted in the both lobes of liver.The unenhanced spleen, pancreas, and adrenal glands are grossly unremarkable. The gallbladder is distended and shows hyperdense contents. The kidneys are normal in size and attenuation . non-obstructing concretions are noted in the inferior calyx of left kidney. There is no hydronephrosis or perinephric stranding. An exophytic cortical cyst of size 4 cm is noted involving interpolar region of right kidney. The ureters are normal in caliber. No adenopathy or fluid collections are seen. No evidence of focal or diffuse bowel wall thickening or evidence of bowel obstruction is seen. The appendix is not separately identified, however, no signs of inflammation in right iliac fossa. The aorta is normal in caliber. The urinary bladder is normal in contour. Pelvic viscera are grossly unremarkable. No aggressive appearing osseous lesions are identified. Multiple small uncomplicated sigmoid colonic diverticulosis Degenerative changes involving visible spine. IMPRESSION: 1. The visualized lung bases show large confluent consolidation in right lower lobe. dilated distal esophagus with food material - possibility of achalasia cardia - needs correlation with contrast swallow study. The lung changes possibly represent changes of aspiration pneumonitis. 2. Simple hepatic and right renal cortical cysts. 3. Multiple small uncomplicated sigmoid colonic diverticulosis . 4. No imaging evidence of appendicitis. 5. Non-obstructing left renal concretions. Electronically Signed by: Boni Alcala MD. (04/25/2024 02:44:05 EST)
--- NOTE | 2024-04-25 03:13 | XRAY ---
CLINICAL HISTORY: Fall injury COMPARISON: None. TECHNIQUE: Multiple axial images are obtained from the skull base to the vertex without contrast. CT scan was performed according to ALARA (as low as reasonable achievable). FINDINGS: There is cerebral atrophy. No evidence of space occupying lesion, hemorrhage, edema, mass effect, midline shift, extra axial collection, or hydrocephalus is noted. Basal cisterns are symmetric and normal in size and configuration. There are scattered periventricular hypodensities as can be seen with chronic microvascular ischemic changes. The barron-white matter differentiation is preserved. Mild bilateral maxillary sinusitis. Rest of paranasal sinuses and mastoid air cells are well aerated. Orbital contents are within normal limits. Bony structures are intact. IMPRESSION: 1. No evidence of acute intracranial abnormality is demonstrated. 2. Chronic microvascular ischemic changes. 3. Cerebral atrophy. Electronically Signed by: Boni Alcala MD. (04/25/2024 03:09:53 EST)
[2024-04-25] MEDS ORDERED: ROCEPHIN 1 GM / 100 ML NaCl 1 GM/100 ML IVPB IV ONE (03:46)
[2024-04-25] MEDS: ROCEPHIN 1 GM / 100 ML NaCl 1 GM/100 ML IVPB IV ONE (03:47)
[2024-04-25 07:03] VITALS: BP 87/59; PULSE 90; RESP 20; O2SAT 92
--- NOTE | 2024-04-25 07:59 | XRAY ---
Indication: Leukocytosis. Comparison: January 15, 2024 Portable chest again rotated with worsening right mid to lower lung consolidating/nonconsolidating airspace disease. Stable COPD. Heart not enlarged. Bony thorax intact again with osteopenia and degenerative changes.
== END 2024-04-25 07:00 | disposition left against medical advice (07) ==
LOC: ED 23:45
DX: I95.9 Hypotension, unspecified (principal); R11.2 Nausea with vomiting, unspecified; R91.8 Other nonspecific abnormal finding of lung field; D72.829 Elevated white blood cell count, unspecified; E86.0 Dehydration; R51.9 Headache, unspecified; M54.2 Cervicalgia; I10 Essential (primary) hypertension; Z79.899 Other long term (current) drug therapy; Z72.0 Tobacco use; Z59.19 Other inadequate housing
CPT/HCPCS: 0241U; 36415; 70450; 71045; 72125; 74176; 80053; 81001; 82150; 84484; 85025; 86308; 87040; 96361; 96365; 96375; 99285; 96374; 99284; 99291; J0696; J2405

== ENCOUNTER 2024-04-30 14:41 | Emergency (ER) | payer MEDICARE, OTHER ==
[2024-04-30 14:48] VITALS: TEMP 97.7
[2024-04-30 15:40] LABS: Absolute Neutrophil Ct (ANC) 5.57 x10^3/uL (1.78-5.38); BASOPHIL % 0.5 % (0.2-1.2); Basophil (Absolute #) 0.04 x10^3/uL (0.01-0.08); Eosinophil % 0.5 % (0.8-7.0); Eosinophil (Absolute #) 0.04 x10^3/uL (0.04-0.54); Hemoglobin 10.2 g/dL (13.7-17.5); IMMATURE GRAN # 0.09 x10^3u/L (0.001-0.031); IMMATURE GRAN % 1.2 % (0.001-0.429); Lymphocyte (Absolute #) 0.87 x10^3/uL (1.32-3.57); Lymphocytes % 11.5 % (21.8-53.1); Mean Cell Volume 101.2 fL (79.0-92.2); Mean Corpuscular Hemoglobin 31.3 pg (25.7-32.2); Mean Corpuscular Hgb Concent. 30.9 g/dL (32.3-36.5); Mean Platelet Volume 10.4 fL (9.4-12.4); Monocyte (Absolute #) 0.98 x10^3/uL (0.30-0.82); Monocytes % 12.9 % (5.3-12.2); Neutrophil % 73.4 % (34.0-67.9); Platelet Count 223 x10^3/uL (163-337); Red Blood Count 3.26 x10^6/uL (4.63-6.08); Red Cell Distribution Width 15.9 % (11.6-14.4); White Blood Count 7.6 x10^3/uL (4.23-9.07)
[2024-04-30] MEDS ORDERED: DUONEB 0.5-3 MG/3 ml Neb IH ONE (15:47)
[2024-04-30] MEDS ORDERED: Sterile H2O 10 ml IJ ONE (15:48)
[2024-04-30] MEDS ORDERED: solu-MEDROL ONE (15:48)
[2024-04-30 15:51] LABS: ALBUMIN 2.9 g/dL (3.5-5.0); ANION GAP 8.9 MEQ/L (5-15); BILIRUBIN,TOTAL 0.5 mg/dL (0.2-1.3); Calcium 8.9 mg/dL (8.4-10.2); Creatinine 1 0.41 mg/dL (0.66-1.25); EST GLOMERULAR FILTRATION RATE 112.9 ML/MIN; MAGNESIUM 1.3 mg/dL (1.6-2.3); Potassium 4.8 mmol/L (3.5-5.1); Total Protein 6.2 g/dL (6.3-8.2)
[2024-04-30] MEDS: solu-MEDROL 125 MG, Sterile H2O 10 ml 2 ML IV ONE (15:51)
[2024-04-30 15:58] LABS: NT PRO BNPII 870 pg/mL (<300); TROPONIN < 0.012 ng/mL (0.000-0.033)
[2024-04-30] MEDS: DUONEB 0.5-3 MG/3 ml Neb IH ONE (15:58)
--- NOTE | 2024-04-30 16:26 | ERPHSYRPT ---
- History of Present Illness Time Seen by Provider: 04/30/24 15:03 Source: patient Exam Limitations: no limitations Patient Subjective Stated Complaint: pt here for sob, pt was sent b pov from office for low o2 sat , when pt arrived per wc he was on home o2 at 3 l nc, niharika es fever Triage Nursing Assessment: pt alert, arriver per wc, occ productive cough, white thick sputum, skin w/d/p. no edema noted, moves al ext well chest with rales to lower bases Physician History: 73-year-old male with history of COPD with chronic respiratory failure on 3 L oxygen, tobacco use, hypertension, hyperlipidemia, coronary artery disease with stenting presented in the ER from primary care office with low oxygen saturation . Patient reports coughing up clear to yellow sputum moderate in amount with some increased shortness of breath with exertion. Denies any lower extremity swellings. No fever or chills reported. Patient oxygen saturation is in mid 90s on presentation in the ER on 3 L oxygen. Patient reports having off-and-on nausea and vomiting for quite some time but denies any abdominal pain. Allergies/Adverse Reactions: No Known Drug Allergies Allergy (Verified 04/30/24 14:44) Home Medications: Ramipril 5 mg [Altace 5 MG] 2.5 mg PO DAILY 06/24/14 [History] Ezetimibe/Simvastatin [Ezetimibe-Simvastatin 10-20 mg] 1 each PO DAILY 03/28/21 [History] Gabapentin [Neurontin ] 300 mg PO TID 05/15/22 [History] Albuterol Common Canister [Ventolin Common Canister] 1 puff IH Q4HPRN PRN 01/15/24 [History] Albuterol/Ipratropium 3ml Neb* [DUONEB 0.5-3 MG/3 ml Neb] 1 neb IH Q4HPRN PRN 01/15/24 [History] Potassium Chloride [Klor-Con 10] 10 meq PO DAILY 01/15/24 [History] Bumetanide 1 mg [Bumex 1 mg] 1 mg PO DAILY 02/04/24 [History] Ondansetron [Ondansetron Odt ] 4 mg PO Q4H PRN 02/04/24 [History] PANTOPRAZOLE 40 mg Tablet [Protonix 40MG Tablet] 40 mg PO DAILY 02/04/24 [History] Cyanocobalamin 1000 Mcg/ml [Cyanocobalamin B-12 1000 MCG/ML] 1 ml IM WEEKLY 04/25/24 [History] Magnesium Oxide 400 mg [Mag-Ox 400] 400 mg PO HS 04/25/24 [History] Mirtazapine 15 mg PO HS 04/25/24 [History] Sennosides/Docusate Sodium [Senexon-S 50-8.6 mg Tablet] 8.6 mg PO DAILY 04/25/24 [History] Tiotropium [place] [Spiriva] 18 mcg IH DAILY PRN PRN 04/25/24 [History] Hx Tetanus, Diphtheria Vaccination/Date Given: No Hx Influenza Vaccination/Date Given: No Hx Pneumococcal Vaccination/Date Given: Yes Immunizations Up to Date: Yes Travel Risk - International Travel Have you traveled outside of the country in past 3 weeks: No - Emerging Infectious Disease Are you exhibiting symptoms associated with any current EIDs: Yes Symptoms: Cough: New Onset, Shortness of Breath - Review of Systems Constitutional: No Symptoms Eyes: No Symptoms Ears, Nose, & Throat: No Symptoms Respiratory: Cough, Dyspnea, Dyspnea on Exertion (MAJOR), Wheezing Cardiac: No Symptoms Abdominal/Gastrointestinal: Nausea Genitourinary Symptoms: No Symptoms Skin: No Symptoms Neurological: No Symptoms Psychological: No Symptoms Hematologic/Lymphatic: No Symptoms - Past Medical History Pertinent Past Medical History: Yes Neurological History: No Pertinent History ENT History: No Pertinent History Cardiac History: Coronary Artery Disease, Hypertension, Myocardial Infarction (AR) Respiratory History: Asthma, COPD Endocrine Medical History: No Pertinent History Musculoskeletal History: No Pertinent History GI Medical History: No Pertinent History, Pancreatitis History: No Pertinent History Psycho-Social History: No Pertinent History Male Reproductive Disorders: No Pertinent History Other Medical History: black lung - Past Surgical History Past Surgical History: Yes Neuro Surgical History: No Pertinent History Cardiac: Cardiac Stent Respiratory: No Pertinent History Gastrointestinal: Appendectomy Genitourinary: No Pertinent History Musculoskeletal: No Pertinent History Male Surgical History: No Pertinent History Other Surgical History: 4 STENTS PLACED Significant Family History: no pertinent family hx - Social History Smoking Status: Current every day smoker How long have you smoked: 60 years Exposure to second hand smoke: Yes Drug Use: none - Social Determinants of Health Will the patient participate in the screening: Yes Do you worry about a steady place to live?: No Do you have any problems with any of the following?: Pest (bugs,ants,or mice) In the past 12 months,have you had to go without utilities?: No Transportation Issues: No Has anyone in your support network made you feel unsafe?: No Have you or anyone in your house had to go w/o enough food: No Comment: bedbugs - Nursing Vital Signs Nursing Vital Signs: Initial Vital Signs Temperature 97.7 F 04/30/24 14:45 Pulse Rate 98 H 04/30/24 14:45 Respiratory Rate 20 04/30/24 14:45 Blood Pressure 103/75 04/30/24 14:45 O2 Sat by Pulse Oximetry 97 04/30/24 14:45 Pain Scale Pain Intensity 0 - Physical Exam General Appearance: no apparent distress, alert Eye Exam: PERRL/EOMI Ears, Nose, Throat Exam: hearing grossly normal Neck Exam: normal inspection, full range of motion Respiratory Exam: diminished breath sounds, rhonchi, wheezing Cardiovascular/Chest Exam: normal heart sounds, regular rate/rhythm Abdominal/Gastrointestinal Exam: soft, normal bowel sounds, No tenderness Extremity Exam: non-tender Neurologic Exam: alert, oriented x 3, cooperative Skin Exam: normal color SpO2 Interpretation: normal SpO2: 97 O2 Delivery: Room Air - Course EKG Interpreted by Me: RATE (90), Sinus Rhythm, NORMAL AXIS, NORMAL INTERVALS, Non-specific ST Changes, Other (LVH with secondary repolarization changes.) Ordered Tests: Active Orders 24 hr Category Date Time Status Home Service Demonstrator STAT Care 04/30/24 15:33 Completed EKG-ER Only STAT Care 04/30/24 15:32 Completed IV Insertion STAT Care 04/30/24 15:32 Completed CHEST 1 VIEW (PORTABLE) Stat Exams 04/30/24 15:32 Completed BLOOD CULTURE Stat Lab 04/30/24 15:55 Received CBC W DIFF Stat Lab 04/30/24 15:00 Completed CMP Stat Lab 04/30/24 15:00 Completed LIPASE Stat Lab 04/30/24 15:00 Completed Lactic Acid Stat Lab 04/30/24 15:32 Completed MAGNESIUM Stat Lab 04/30/24 15:00 Completed NT PRO BNPII Stat Lab 04/30/24 15:00 Completed TROPONIN Q4H Lab 04/30/24 15:00 Completed Respiratory Therapy Assessment DAILY RT 04/30/24 16:05 Completed Medication Summary Discontinued Medications Generic Name Dose Route Start Last Admin Trade Name Jigna PRN Reason Stop Dose Admin Albuterol/Ipratropium 3 ml 04/30/24 15:32 04/30/24 15:58 Ipratropium/Albuterol Sulfate 3 Ml Ampul.Neb IH 04/30/24 15:33 3 ml STAT ONE Administration Albuterol/Ipratropium Confirm 04/30/24 15:47 Ipratropium/Albuterol Sulfate 3 Ml Ampul.Neb Administered 04/30/24 15:48 Dose 3 ml IH .STK-MED ONE Cefdinir 300 mg 04/30/24 18:58 04/30/24 19:37 Cefdinir 300 Mg Capsule PO 04/30/24 18:59 300 mg ONCE STA Administration Methylprednisolone Sodium 0 mg 04/30/24 15:32 04/30/24 15:51 Succinate 125 mg/ Sterile IV 04/30/24 15:33 125 mg Water 2 ml STAT ONE Administration Doxycycline Hyclate 100 mg 04/30/24 18:58 04/30/24 19:37 Doxycycline Hyclate 100 Mg Tablet PO 04/30/24 18:59 100 mg STAT ONE Administration Doxycycline Hyclate Confirm 04/30/24 19:06 Doxycycline Hyclate 100 Mg Tablet Administered 04/30/24 19:07 Dose 100 mg .ROUTE .STK-MED ONE Methylprednisolone Sodium Succinate Confirm 04/30/24 15:48 Methylprednis Sod Succ 125 Mg/2 Ml Vial Administered 04/30/24 15:49 Dose 125 mg .ROUTE .STK-MED ONE Sterile Water Confirm 04/30/24 15:48 Water For Injection,Sterile 10 Ml Vial Administered 04/30/24 15:49 Dose 10 ml IJ .STK-MED ONE Lab/Rad Data: Laboratory Result Diagrams 04/30/24 15:00 04/30/24 15:00 Laboratory Results 04/30/24 04/30/24 04/30/24 Range/Units 15:40 15:32 15:00 WBC (4.23-9.07) x10^3/uL RBC (4.63-6.08) x10^6/uL Hgb (13.7-17.5) g/dL Hct (40.1-51.0) % MCV (79.0-92.2) fL MCH (25.7-32.2) pg MCHC (32.3-36.5) g/dL RDW (11.6-14.4) % Plt Count (163-337) x10^3/uL MPV (9.4-12.4) fL Gran % (34.0-67.9) % Immature Gran % (Auto) (0.001-0.429) % Nucleat RBC Rel Count (0.00-0.2) % Eos # (Auto) (0.04-0.54) x10^3/uL Immature Gran # (Auto) (0.001-0.031) x10^3u/L Absolute Lymphs (auto) (1.32-3.57) x10^3/uL Absolute Monos (auto) (0.30-0.82) x10^3/uL Absolute Nucleated RBC (0.00-0.012) x10^3u/L Lymphocytes % (21.8-53.1) % Monocytes % (5.3-12.2) % Eosinophils % (0.8-7.0) % Basophils % (0.2-1.2) % Absolute Granulocytes (1.78-5.38) x10^3/uL Basophils # (0.01-0.08) x10^3/uL Sodium (135-145) mmol/L Potassium (3.5-5.1) mmol/L Chloride (98-107) mmol/L Carbon Dioxide (22-30) mmol/L Anion Gap (5-15) MEQ/L BUN (9-20) mg/dL Creatinine (0.66-1.25) mg/dL Estimated GFR ML/MIN Glucose (74-106) mg/dL Lactic Acid 1.7 (0.4-2.0) Calcium (8.4-10.2) mg/dL Magnesium (1.6-2.3) mg/dL Total Bilirubin (0.2-1.3) mg/dL AST (17-59) U/L ALT (0-50) U/L Alkaline Phosphatase (38-126) U/L Troponin I (0.000-0.033) ng/mL NT-Pro-B Natriuret Pep (<300) pg/mL Serum Total Protein (6.3-8.2) g/dL Albumin (3.5-5.0) g/dL Lipase 27 (23-300) U/L Influenza Type A Ag NEGATIVE (NEGATIVE) Influenza Type B Ag NEGATIVE (NEGATIVE) RSV (PCR) NEGATIVE (NEGATIVE) SARS-CoV-2 (PCR) NEGATIVE (NEGATIVE) 04/30/24 04/30/24 04/30/24 Range/Units 15:00 15:00 15:00 WBC 7.6 (4.23-9.07) x10^3/uL RBC 3.26 L (4.63-6.08) x10^6/uL Hgb 10.2 L (13.7-17.5) g/dL Hct 33.0 L (40.1-51.0) % MCV 101.2 H (79.0-92.2) fL MCH 31.3 (25.7-32.2) pg MCHC 30.9 L (32.3-36.5) g/dL RDW 15.9 H (11.6-14.4) % Plt Count 223 (163-337) x10^3/uL MPV 10.4 (9.4-12.4) fL Gran % 73.4 H (34.0-67.9) % Immature Gran % (Auto) 1.2 H (0.001-0.429) % Nucleat RBC Rel Count 0.0 (0.00-0.2) % Eos # (Auto) 0.04 (0.04-0.54) x10^3/uL Immature Gran # (Auto) 0.09 H (0.001-0.031) x10^3u/L Absolute Lymphs (auto) 0.87 L (1.32-3.57) x10^3/uL Absolute Monos (auto) 0.98 H (0.30-0.82) x10^3/uL Absolute Nucleated RBC 0.00 (0.00-0.012) x10^3u/L Lymphocytes % 11.5 L (21.8-53.1) % Monocytes % 12.9 H (5.3-12.2) % Eosinophils % 0.5 L (0.8-7.0) % Basophils % 0.5 (0.2-1.2) % Absolute Granulocytes 5.57 H (1.78-5.38) x10^3/uL Basophils # 0.04 (0.01-0.08) x10^3/uL Sodium 135 (135-145) mmol/L Potassium 4.8 (3.5-5.1) mmol/L Chloride 94 L (98-107) mmol/L Carbon Dioxide 36 H (22-30) mmol/L Anion Gap 8.9 (5-15) MEQ/L BUN 15 (9-20) mg/dL Creatinine 0.41 L (0.66-1.25) mg/dL Estimated GFR 112.9 ML/MIN Glucose 92 (74-106) mg/dL Lactic Acid (0.4-2.0) Calcium 8.9 (8.4-10.2) mg/dL Magnesium 1.3 L (1.6-2.3) mg/dL Total Bilirubin 0.50 (0.2-1.3) mg/dL AST 23 (17-59) U/L ALT 15 (0-50) U/L Alkaline Phosphatase 70 (38-126) U/L Troponin I < 0.012 (0.000-0.033) ng/mL NT-Pro-B Natriuret Pep 870 (<300) pg/mL Serum Total Protein 6.2 L (6.3-8.2) g/dL Albumin 2.9 L (3.5-5.0) g/dL Lipase (23-300) U/L Influenza Type A Ag (NEGATIVE) Influenza Type B Ag (NEGATIVE) RSV (PCR) (NEGATIVE) SARS-CoV-2 (PCR) (NEGATIVE) - Progress Progress: improved, re-examined Air Movement: good Progress Note: 04/30/24 19:05 73-year-old is evaluated in the ER for worsening cough and difficulty breathing with low oxygen saturation at primary care office. Patient oxygen saturation is mid to upper 90s in the ER throughout stay. EKG is sinus rhythm with no acute ST elevations He is given breathing treatment, on reevaluation his oxygen saturation is upper 90s. Patient feeling much better. Chest x-ray is showed some improvement but still having some infiltrates on the right side. Normal white count, chemistries fairly unremarkable. Negative troponin, lactate, COVID flu and RSV. Patient turned around really good after breathing treatment, discussed with patient about observation admission versus going home and he would prefer to go home. I think is reasonable, I will start him on Omnicef and Doxy along with low-dose steroid for few days and recommended taking breathing treatments at home every 4-6 hourly which patient/family seem understanding. Stable for discharge. Complexity of problems addressed: Moderate acute Complexity of data reviewed analyzed: Moderate Risk of complications/mortality/morbidity: Moderate Blood Culture(s) Obtained: Yes Antibiotics given: Yes Counseled pt/family regarding: lab results, diagnosis, need for follow-up, rad results, smoking cessation Medical Desision Making - Independent Historian Additional History obtained from: Child - Diagnostic Testing Diagnostic test were ordered, analyzed, and reviewed by me: Yes Radiological Interpretation: Reviewed by me - Risk of complications The pt has a mod risk of morbidity or mortality based on: Need for prescription drug management - Departure Departure Disposition: Home Clinical Impression: Pneumonia, COPD exacerbation Condition: Stable Critical Care Time: No Referrals: ROSA GE NP [Primary Care Provider] - Follow up/PCP as directed Instructions: Chronic Obstructive Pulmonary Disease, Asthma, Adult (DC), Shortness of Breath (Dyspnea) (DC), Exacerbation of COPD (DC) Additional Instructions: Follow-up with primary care for reevaluation. Take neb treatments every 4-6 hourly. Return to ER for difficulty breathing, worsening cough or if having chest pain palpitations etc. Prescriptions: Prednisone 20 mg [Deltasone 20 mg] 40 mg PO DAILY 5 Days #10 tablet Cefdinir [Omnicef 300 mg] 300 mg PO BID 10 Days #20 cap Doxycycline Hyclate 100 mg [Vibramycin 100 MG] 100 mg PO BID #20 tab
--- NOTE | 2024-04-30 16:28 | XRAY ---
Indication: Short of breath. Comparison: April 25, 2024 Portable chest demonstrates minimally improving moderate right mid to lower lung consolidating/nonconsolidating airspace disease. Stable right lung volume loss and COPD. Heart not enlarged. No new cardiopulmonary abnormalities.
[2024-04-30 16:34] LABS: INFLUENZA A NEGATIVE (NEGATIVE); INFLUENZA B NEGATIVE (NEGATIVE); RESPIRATORY SYNCTIAL VIRUS NEGATIVE (NEGATIVE); SARS-CoV-2 Xpert Express NEGATIVE (NEGATIVE)
[2024-04-30] MEDS ORDERED: Vibramycin 100 MG ONE (19:06)
[2024-04-30 19:09] VITALS: O2SAT 97
[2024-04-30 19:20] VITALS: BP 112/82; PULSE 87; RESP 16
[2024-04-30] MEDS: Vibramycin 100 MG PO ONE (19:37)
[2024-04-30] MEDS: OMNICEF 300 MG PO STA (19:37)
== END 2024-04-30 19:57 | disposition home or self-care (01) ==
LOC: ED 14:41
DX: J18.9 Pneumonia, unspecified organism (principal); J44.1 Chronic obstructive pulmonary disease with (acute) exacerbation; R05.1 Acute cough; R11.2 Nausea with vomiting, unspecified; I10 Essential (primary) hypertension; E78.5 Hyperlipidemia, unspecified; Z79.899 Other long term (current) drug therapy; Z72.0 Tobacco use; Z59.19 Other inadequate housing; Z99.81 Dependence on supplemental oxygen
CPT/HCPCS: 0241U; 36415; 71045; 80053; 83605; 83690; 83735; 83880; 84484; 85025; 87040; 93005; 93041; 94640; 96374; 99285; 99284; J2919; A9270-GY